=== PATIENT | female | born 1930 | race Caucasian/White ===

== ENCOUNTER → 2017-07-23 | Outpatient (CLI) | payer OTHER ==
[2017-07-23 17:03] LABS: ANION GAP 17.5 mmol/L (8-16); CALCIUM 9.4 mg/dL (8.4-10.2); CREATININE, SERUM 2.33 mg/dL (0.57-1.11); POTASSIUM 4.5 mmol/L (3.5-5.1)
[2017-07-23 17:04] LABS: BASOPHILS % 0.2 % (0.0-1.0); EOSINOPHILS # (AUTO) 0.1 (0.0-0.4); EOSINOPHILS % 0.4 % (0.0-6.0); HEMATOCRIT 40.1 % (34.2-44.1); HEMOGLOBIN 12.9 g/dL (12.0-16.0); LYMPHOCYTES # (AUTO) 0.6 (1.0-3.2); LYMPHOCYTES % 4.9 % (18.0-39.1); MEAN CORPUSCULAR HEMOGLOBIN 29.5 pg (28-32); MEAN CORPUSCULAR HGB CONC 32.2 g/dL (31-35); MEAN CORPUSCULAR VOLUME 91.8 fL (81-99); MONOCYTES # (AUTO) 0.8 (0.2-0.8); MONOCYTES % 6.2 % (4.4-11.3); NEUTROPHILS # (AUTO) 10.5 (2.1-6.9); NEUTROPHILS % 87.5 % (38.7-80.0); PLATELET COUNT 178 x10e3/uL (140-360); RED BLOOD COUNT 4.37 x10e6/uL (3.6-5.1); RED CELL DISTRIBUTION WIDTH 16.3 % (11.7-14.4)
== END ==
LOC: NPA 14:56
DX: Z02.89 Encounter for other administrative examinations (principal)
CPT/HCPCS: 36415; 80048; 85025

== ENCOUNTER → 2017-09-20 | Outpatient (CLI) | payer MEDICARE, OTHER ==
[~2017-09-20] MED LIST: AMIODARONE HCL200 MG PO; ASPIR 8181 MG PO; ATORVASTATIN CA20 MG PO; BUMETANIDE1 MG PO; CALCIUM PO; ELIQUIS PO; FARXIGA PO; GLIMEPIRIDE2 MG PO; PRESERVISION A1 EACH PO; PROAIR HFA INH8.5 GM INH; PROPRANOLOL HCL40 MG PO; SODIUM BICARBO650 MG PO; TOUJEO SOLOSTAR SC; VITAMIN D1000 UNI1 PO
== END ==
LOC: RAD 14:40
PROVIDERS: ATTEND Family Medicine
DX: R60.0 Localized edema (principal)
CPT/HCPCS: 93971

== ENCOUNTER 2017-09-22 19:48 | Inpatient (IN) | payer MEDICARE ==
[~2017-09-22] VITALS: Ht 157.5 cm; Wt 85.4 kg
[2017-09-22] MEDS ORDERED: PIPER-TAZ 3.375 GM 50 ML IV STA (20:46)
[2017-09-22] MEDS ORDERED: VANCOMYCIN 1GM/NS 250 ML 250 ML IV STA (20:46)
[2017-09-22] MEDS ORDERED: BUMETANIDE1 MG PO (21:32)
[2017-09-22] MEDS ORDERED: ASPIR 8181 MG PO (21:32)
[2017-09-22] MEDS ORDERED: FARXIGA PO (21:33)
[2017-09-22] MEDS ORDERED: GLIMEPIRIDE2 MG PO (21:35)
[2017-09-22] MEDS ORDERED: TOUJEO SOLOSTAR SC (21:38)
[2017-09-22] MEDS ORDERED: CALCIUM PO (21:39)
[2017-09-22] MEDS ORDERED: ELIQUIS PO (21:40)
[2017-09-22] MEDS ORDERED: PROPRANOLOL HCL40 MG PO (21:41)
[2017-09-22] MEDS ORDERED: PRESERVISION A1 EACH PO (21:41)
[2017-09-22] MEDS ORDERED: SODIUM BICARBO650 MG PO (21:41)
[2017-09-22 21:42] LABS: BASOPHILS # (AUTO) 0.1 (0.0-0.1); BASOPHILS % 0.4 % (0.0-1.0); EOSINOPHILS # (AUTO) 0.4 (0.0-0.4); EOSINOPHILS % 2.4 % (0.0-6.0); HEMATOCRIT 38.3 % (34.2-44.1); LYMPHOCYTES # (AUTO) 1.3 (1.0-3.2); LYMPHOCYTES % 9.2 % (18.0-39.1); MEAN CORPUSCULAR HGB CONC 31.3 g/dL (31-35); MEAN CORPUSCULAR VOLUME 89.5 fL (81-99); MONOCYTES % 7.1 % (4.4-11.3); NEUTROPHILS # (AUTO) 11.5 (2.1-6.9); NEUTROPHILS % 80.3 % (38.7-80.0); PLATELET COUNT 308 x10e3/uL (140-360); RED BLOOD COUNT 4.28 x10e6/uL (3.6-5.1); RED CELL DISTRIBUTION WIDTH 17.2 % (11.7-14.4)
[2017-09-22] MEDS ORDERED: AMIODARONE HCL200 MG PO (21:42)
[2017-09-22] MEDS ORDERED: VITAMIN D1000 UNI1 PO (21:42)
[2017-09-22] MEDS ORDERED: ATORVASTATIN CA20 MG PO (21:43)
[2017-09-22] MEDS ORDERED: PROAIR HFA INH8.5 GM INH (21:45)
[2017-09-22 21:51] LABS: INR 1.35; PARTIAL THROMBOPLASTIN TIME 30.8 seconds (23.8-35.5); PROTHROMBIN TIME 15.7 seconds (11.9-14.5)
--- NOTE | 2017-09-22 21:58 | Diagnostic Imaging Report ---
EXAMINATION: CHEST 2 VIEWS INDICATION: Shortness of breath COMPARISON: 11/03/2008 FINDINGS: TUBES and LINES: None. LUNGS: Lungs are not well inflated. There is evidence of interlobular septi thickening. There is mild prominence of the central pulmonary vasculature, consistent with pulmonary venous congestion. PLEURA: No pleural effusion or pneumothorax. HEART AND MEDIASTINUM: Cardiac size is mildly enlarged. BONES AND SOFT TISSUES: No acute osseous lesion. Soft tissues are unremarkable. UPPER ABDOMEN: No free air under the diaphragm. IMPRESSION: Interval development of mild pulmonary edema. Signed by: Dr. Enio Muñoz M.D. on 09/22/2017 9:54 PM
[2017-09-22 22:02] LABS: ALBUMIN 2.9 g/dL (3.5-5.0); ALBUMIN/GLOBULIN RATIO 0.8 (0.8-2.0); ANION GAP 15.8 mmol/L (8-16); CALCIUM 10.1 mg/dL (8.4-10.2); CREATININE, SERUM 1.97 mg/dL (0.57-1.11); POTASSIUM 3.8 mmol/L (3.5-5.1)
[2017-09-22] MEDS ORDERED: SODIUM CHLORIDE FLUSH 10 ML SYR INJ PRN (22:45)
[2017-09-22] MEDS ORDERED: FUROSEMIDE INJ 10 MG/ML 4 ML VIAL IV ONE (22:45)
[2017-09-22] MEDS ORDERED: DEXTROSE 50% SYRINGE 50 ML IV PRN (22:45)
[2017-09-22] MEDS ORDERED: VANCOMYCIN 500MG/NS 0.9% 100ML 100 ML IV SCH (22:45)
[2017-09-22] MEDS: ALBUTEROL/IPRATROPIUM 3 ML NEB NEB PRN (22:50)
--- OUTSIDE RECORDS SUMMARY | 2017-09-22 23:02 | XMS REPORT ---
Author Author [facility] Address Unknown Phone Unavailable Care Team Providers Care Cartographic Engineer Name Role Phone TERESA BO Unavailable Unavailable Problems This patient has no known problems. Allergies, Adverse Reactions, Alerts This patient has no known allergies or adverse reactions. Medications This patient has no known medications. Results Test Description Test Time Test Comments Text Results Atomic Results Result Comments CHEST 2 VIEWS [place] [id number] [place] [address] Patient Name: SANTOSH SANTIAGO MR #: [id number] : 1930 Age/Sex: 86/F Req #: [id number] Adm Physician: Ordered by: TERESA BO MD Report #: [id number] Location: ER Room/Bed: Procedure: [id number] DX/CHEST 2 VIEWS Exam Date: 09/22/17 Exam Time : 2104 REPORT STATUS: Signed EXAMINATION: CHEST 2 VIEWS INDICATION: Shortness of breath COMPARISON: 11/03/2008 FINDINGS: TUBES and LINES: None. LUNGS: Lungs are not well inflated. There is evidence of interlobular septi thickening. There is mild prominence of the central pulmonary vasculature, consistent with pulmonary venous congestion. PLEURA: No pleural effusion or pneumothorax. HEART AND MEDIASTINUM: Cardiac size is mildly enlarged. BONES AND SOFT TISSUES: No acute osseous lesion. Soft tissues are unremarkable. UPPER ABDOMEN: No free air under the diaphragm. IMPRESSION: Interval development of mild pulmonary edema. Signed by: Dr. Enio Muñoz M.D. on 09/22/2017 9:54 PM Dictated By: ENIO QUINTEROS MD 53 Transcribed By: NEGIN on 09/22/172153 COPY TO: TERESA BO MD
[2017-09-22 23:45] VITALS: BP 137/93
[2017-09-23] VITALS (8 sets, daily range): BP systolic 104–137; BP diastolic 56–93
[2017-09-23] MEDS: APIXAB 2.5 MG TABLET PO SCH ×3 (00:04→15:54)
[2017-09-23 00:57] LABS: CREATINE KINASE MB 1.1 ng/mL (0-5.0)
[2017-09-23] MEDS ORDERED: SODIUM CHLORIDE 0.9% 250ML 250 ML ONE (05:14)
[2017-09-23] MEDS: PIPERACILLIN/TAZO 2.25 GM 50 ML IV SCH ×3 (05:25→22:00)
[2017-09-23 07:20] LABS: BASOPHILS % 0.1 % (0.0-1.0); EOSINOPHILS # (AUTO) 0.1 (0.0-0.4); EOSINOPHILS % 0.5 % (0.0-6.0); HEMATOCRIT 31.2 % (34.2-44.1); HEMOGLOBIN 10.1 g/dL (12.0-16.0); LYMPHOCYTES # (AUTO) 1.3 (1.0-3.2); LYMPHOCYTES % 7.4 % (18.0-39.1); MEAN CORPUSCULAR HEMOGLOBIN 28.9 pg (28-32); MEAN CORPUSCULAR HGB CONC 32.4 g/dL (31-35); MEAN CORPUSCULAR VOLUME 89.4 fL (81-99); MONOCYTES # (AUTO) 0.9 (0.2-0.8); MONOCYTES % 5.2 % (4.4-11.3); NEUTROPHILS # (AUTO) 14.9 (2.1-6.9); NEUTROPHILS % 86.3 % (38.7-80.0); PLATELET COUNT 256 x10e3/uL (140-360); RED BLOOD COUNT 3.49 x10e6/uL (3.6-5.1); RED CELL DISTRIBUTION WIDTH 16.7 % (11.7-14.4)
[2017-09-23] MEDS: INSULIN REGULAR, HUMAN 100 UNIT/1 ML 3ML VIAL SQ SCH ×4 (07:30→21:00)
[2017-09-23 07:44] LABS: ALBUMIN 2.4 g/dL (3.5-5.0); ALBUMIN/GLOBULIN RATIO 0.8 (0.8-2.0); ANION GAP 13.1 mmol/L (8-16); CREATININE, SERUM 1.76 mg/dL (0.57-1.11); POTASSIUM 3.1 mmol/L (3.5-5.1)
--- NOTE | 2017-09-23 07:52 | History and Physical ---
This 86-year-old female comes in with right lower extremity swelling and redness. HISTORY OF PRESENT ILLNESS: Ms. Mcclure, with a history of hypertension, history of CHF, and history of diabetes mellitus, was in her usual state of health until 3 days prior to admission. The patient came into the office with right lower extremity swelling without any redness. DVT scan was done, which was negative. The patient had a recent fall, sustaining a scalp laceration, and was taken off her Eliquis for the same. The patient was restarted recently and currently complains of right lower extremity redness and erythema. PAST MEDICAL HISTORY 1. History of atrial fibrillation. 2. History of hypertension. 3. History of COPD. 4. History of diabetes mellitus. 5. Hyperlipidemia. 6. Macular degeneration. 7. Gastroesophageal reflux. MEDICATIONS: She takes at home: 1. Albuterol. 2. Amiodarone 200 mg. 3. Aspirin 81 mg. 4. Atorvastatin 20. 5. Bumex 1 mg daily. 6. Glimepiride 10 mg daily. 7. Propranolol 40 mg twice a day. 8. Sodium bicarbonate 650 mg b.i.d. 9. Calcium. 10. Eliquis 2.5 mg twice a day. 11. Farxiga 5 mg daily. 12. Toujeo 12 units at nighttime. SURGICAL HISTORY 1. Hiatal hernia surgery. 2. Appendectomy. 3. Tonsillectomy. REVIEW OF SYSTEMS: Negative for chest pain. Possibly some shortness of breath. No nausea, vomiting, diarrhea. No constipation. No rectal bleeding or hematochezia. No hematemesis. No diplopia. No blurry vision. PHYSICAL EXAMINATION GENERAL: Alert and oriented times 3, in no acute distress. Left lower extremity is raised. HEENT: Normocephalic and atraumatic. The pupils are reacting to light and accommodation. CV: S1 and S2 irregularly irregular. ABDOMEN: Nontender and nondistended. EXTREMITIES: No clubbing. No cyanosis. Positive for edema on the right lower extremity. Positive for erythema spreading into the braga level, positive from the ankle to the knee level. Positive for slight tenderness. LABORATORY EVALUATION: Initial white count 14,000 with a left shift. Chemistries: Sodium 141, BUN 39, creatinine 1.97, potassium 3.8. BNP was 2519. IMAGING: Chest x-ray showed interval development of mild pulmonary edema. MICROBIOLOGY: Pending. ASSESSMENT AND PLAN: Right lower extremity cellulitis. The patient has been started on Zosyn q.8 h. She was restarted back on her apixaban. Furosemide 40 mg IV once has been given. Will restart that for about 4 doses. Vancomycin also was given for 8. The patient will continue back on her home medications. Further recommendations per clinical course. Will continue to monitor the patient in the hospital and also check for cultures. The patient also has history of chronic kidney disease, which we will monitor, especially with administration of medications. We will continue monitoring her electrolytes on a daily basis. Job#: [id number]
[2017-09-23] MEDS: GLIMEPIRIDE 2 MG TAB PO SCH (08:00)
[2017-09-23 08:26] LABS: CREATINE KINASE MB 0.7 ng/mL (0-5.0)
[2017-09-23] MEDS: FARXIGA 5 MG PO SCH (09:00)
[2017-09-23] MEDS ORDERED: COPPER PO SCH (09:00)
[2017-09-23] MEDS: INSULIN GLARGINE SC SCH (09:00)
[2017-09-23] MEDS ORDERED: VIT C PO SCH (09:00)
[2017-09-23] MEDS ORDERED: ZINC PO SCH (09:00)
[2017-09-23] MEDS ORDERED: NON-FORMULARY MEDICATION ([Eliquis] 2.5 MG) PO SCH (09:00)
[2017-09-23] MEDS ORDERED: [UNRECOGNIZED DRUG - OTHER] PO SCH (09:00)
[2017-09-23] MEDS ORDERED: FARXIGA 5 MG PO SCH (09:00)
[2017-09-23] MEDS ORDERED: VIT A PO SCH (09:00)
[2017-09-23] MEDS ORDERED: VIT E PO SCH (09:00)
[2017-09-23] MEDS ORDERED: INSULIN GLARGINE SC SCH (09:00)
[2017-09-23] MEDS ORDERED: NON-FORMULARY MEDICATION ([Calcium] 600 MG) PO SCH (09:00)
[2017-09-23] MEDS ORDERED: POTASSIUM CHLORIDE 20 MEQ TAB CR PO NR (09:15)
[2017-09-23] MEDS: ASPIRIN 81 MG CHEW TAB PO SCH (10:00)
[2017-09-23] MEDS: MULTIVITAMINS/MINERALS TAB PO SCH (10:00)
[2017-09-23] MEDS: PROPRANOLOL HCL 40 MG TAB PO SCH ×2 (10:00→15:54)
[2017-09-23] MEDS: BUMETANIDE 1 MG TAB PO SCH (10:00)
[2017-09-23] MEDS: CHOLECALCIFEROL 1,000 UNIT TAB PO SCH ×2 (10:00→15:55)
[2017-09-23] MEDS: FUROSEMIDE INJ 10 MG/ML 4 ML VIAL IV SCH ×2 (10:00→15:54)
[2017-09-23] MEDS: VANCOMYCIN 500MG/NS 0.9% 100ML 100 ML IV SCH ×2 (10:00→21:38)
[2017-09-23] MEDS: CALCIUM CARBONATE 500 MG CHEWABLE TABS PO SCH (10:00)
[2017-09-23] MEDS: SODIUM BICARBONATE 650 MG TAB PO SCH ×2 (10:37→15:55)
[2017-09-23 15:11] LABS: CREATINE KINASE MB 0.6 ng/mL (0-5.0)
[2017-09-23] MEDS: ALBUTEROL/IPRATROPIUM 3 ML NEB NEB PRN (20:15)
[2017-09-23] MEDS: AMIODARONE HCL 200 MG TAB PO SCH (21:37)
[2017-09-23] MEDS: ATORVASTATIN 40 MG TAB PO SCH (21:37)
[2017-09-24] VITALS (8 sets, daily range): BP systolic 99–136; BP diastolic 54–74
[2017-09-24] MEDS: PIPERACILLIN/TAZO 2.25 GM 50 ML IV SCH ×3 (05:33→22:00)
[2017-09-24] MEDS: INSULIN REGULAR, HUMAN 100 UNIT/1 ML 3ML VIAL SQ SCH ×4 (07:30→21:00)
[2017-09-24] MEDS: FARXIGA 5 MG PO SCH (08:25)
[2017-09-24] MEDS: INSULIN GLARGINE SC SCH (08:26)
[2017-09-24] MEDS: VANCOMYCIN 500MG/NS 0.9% 100ML 100 ML IV SCH ×2 (09:00→21:00)
[2017-09-24] MEDS: ASPIRIN 81 MG CHEW TAB PO SCH (09:00)
[2017-09-24] MEDS: FUROSEMIDE INJ 10 MG/ML 4 ML VIAL IV SCH ×2 (09:00→16:53)
[2017-09-24] MEDS: APIXAB 2.5 MG TABLET PO SCH ×2 (10:35→16:53)
[2017-09-24] MEDS: CHOLECALCIFEROL 1,000 UNIT TAB PO SCH ×2 (10:35→16:54)
[2017-09-24] MEDS: PROPRANOLOL HCL 40 MG TAB PO SCH ×2 (10:35→16:54)
[2017-09-24] MEDS: BUMETANIDE 1 MG TAB PO SCH (10:35)
[2017-09-24] MEDS: SODIUM BICARBONATE 650 MG TAB PO SCH ×2 (10:35→16:54)
[2017-09-24] MEDS: MULTIVITAMINS/MINERALS TAB PO SCH (10:35)
[2017-09-24] MEDS: CALCIUM CARBONATE 500 MG CHEWABLE TABS PO SCH (10:35)
[2017-09-24] MEDS: GLIMEPIRIDE 2 MG TAB PO SCH (12:39)
[2017-09-24] MEDS ORDERED: POTASSIUM CHLORIDE 20 MEQ TAB CR PO ONE (17:45)
[2017-09-24] MEDS: AMIODARONE HCL 200 MG TAB PO SCH (21:00)
[2017-09-24] MEDS: ATORVASTATIN 40 MG TAB PO SCH (21:33)
[2017-09-25] VITALS (9 sets, daily range): BP systolic 113–128; BP diastolic 59–75
[2017-09-25] MEDS: PIPERACILLIN/TAZO 2.25 GM 50 ML IV SCH ×3 (05:25→21:23)
[2017-09-25 06:55] LABS: BASOPHILS % 0.3 % (0.0-1.0); EOSINOPHILS # (AUTO) 0.6 (0.0-0.4); EOSINOPHILS % 5.3 % (0.0-6.0); HEMATOCRIT 32.4 % (34.2-44.1); HEMOGLOBIN 10.2 g/dL (12.0-16.0); LYMPHOCYTES # (AUTO) 1.3 (1.0-3.2); LYMPHOCYTES % 11.8 % (18.0-39.1); MEAN CORPUSCULAR HEMOGLOBIN 28.3 pg (28-32); MEAN CORPUSCULAR HGB CONC 31.5 g/dL (31-35); MEAN CORPUSCULAR VOLUME 89.8 fL (81-99); MONOCYTES # (AUTO) 1.2 (0.2-0.8); MONOCYTES % 10.9 % (4.4-11.3); NEUTROPHILS # (AUTO) 7.7 (2.1-6.9); NEUTROPHILS % 71.1 % (38.7-80.0); PLATELET COUNT 243 x10e3/uL (140-360); RED BLOOD COUNT 3.61 x10e6/uL (3.6-5.1); RED CELL DISTRIBUTION WIDTH 17.2 % (11.7-14.4)
[2017-09-25 07:20] LABS: ANION GAP 13.1 mmol/L (8-16); CALCIUM 8.9 mg/dL (8.4-10.2); CREATININE, SERUM 2.17 mg/dL (0.57-1.11); POTASSIUM 4.1 mmol/L (3.5-5.1)
[2017-09-25] MEDS: GLIMEPIRIDE 2 MG TAB PO SCH (08:46)
[2017-09-25] MEDS: FUROSEMIDE INJ 10 MG/ML 4 ML VIAL IV SCH ×2 (08:47→16:12)
[2017-09-25] MEDS: APIXAB 2.5 MG TABLET PO SCH ×2 (08:47→16:12)
[2017-09-25] MEDS: CALCIUM CARBONATE 500 MG CHEWABLE TABS PO SCH (08:47)
[2017-09-25] MEDS: PROPRANOLOL HCL 40 MG TAB PO SCH ×2 (08:47→16:12)
[2017-09-25] MEDS: ASPIRIN 81 MG CHEW TAB PO SCH (08:47)
[2017-09-25] MEDS: CHOLECALCIFEROL 1,000 UNIT TAB PO SCH ×2 (08:47→16:12)
[2017-09-25] MEDS: BUMETANIDE 1 MG TAB PO SCH (08:47)
[2017-09-25] MEDS: MULTIVITAMINS/MINERALS TAB PO SCH (08:47)
[2017-09-25] MEDS: INSULIN REGULAR, HUMAN 100 UNIT/1 ML 3ML VIAL SQ SCH ×4 (08:47→21:00)
[2017-09-25] MEDS: SODIUM BICARBONATE 650 MG TAB PO SCH ×2 (08:47→16:12)
[2017-09-25] MEDS: FARXIGA 5 MG PO SCH (08:49)
[2017-09-25] MEDS: INSULIN GLARGINE SC SCH (08:49)
[2017-09-25] MEDS: VANCOMYCIN 500MG/NS 0.9% 100ML 100 ML IV SCH (09:00)
[2017-09-25] MEDS: ATORVASTATIN 40 MG TAB PO SCH (21:00)
[2017-09-25] MEDS: AMIODARONE HCL 200 MG TAB PO SCH (21:00)
[2017-09-26] VITALS: BP 120/67
[2017-09-26 03:45] VITALS: BP 126/66
[2017-09-26] MEDS: PIPERACILLIN/TAZO 2.25 GM 50 ML IV SCH ×2 (05:24→14:23)
[2017-09-26 07:10] VITALS: BP 146/78
[2017-09-26] MEDS: INSULIN REGULAR, HUMAN 100 UNIT/1 ML 3ML VIAL SQ SCH ×2 (07:30→12:48)
[2017-09-26 07:36] VITALS: BP 146/78
[2017-09-26 07:58] LABS: ANION GAP 16.1 mmol/L (8-16); CALCIUM 9.7 mg/dL (8.4-10.2); CREATININE, SERUM 1.99 mg/dL (0.57-1.11); POTASSIUM 4.1 mmol/L (3.5-5.1)
[2017-09-26] MEDS ORDERED: GLIMEPIRIDE 2 MG TAB PO SCH (08:00)
[2017-09-26] MEDS: INSULIN GLARGINE SC SCH (08:12)
[2017-09-26] MEDS: FARXIGA 5 MG PO SCH (08:12)
[2017-09-26] MEDS: BUMETANIDE 1 MG TAB PO SCH (09:02)
[2017-09-26] MEDS: ASPIRIN 81 MG CHEW TAB PO SCH (09:02)
[2017-09-26] MEDS: APIXAB 2.5 MG TABLET PO SCH (09:02)
[2017-09-26] MEDS: CALCIUM CARBONATE 500 MG CHEWABLE TABS PO SCH (09:03)
[2017-09-26] MEDS: SODIUM BICARBONATE 650 MG TAB PO SCH (09:03)
[2017-09-26] MEDS: MULTIVITAMINS/MINERALS TAB PO SCH (09:03)
[2017-09-26] MEDS: PROPRANOLOL HCL 40 MG TAB PO SCH (09:03)
[2017-09-26] MEDS: CHOLECALCIFEROL 1,000 UNIT TAB PO SCH (09:03)
[2017-09-26] MEDS: VANCOMYCIN 500MG/NS 0.9% 100ML 100 ML IV SCH (09:10)
[2017-09-26 11:31] VITALS: BP 123/72
[2017-09-26 15:52] VITALS: BP 123/74
[2017-09-26] MEDS ORDERED: FUROSEMIDE 40 MG TAB PO SCH (18:00)
== END 2017-09-26 17:51 | DRG 291 ==
LOC: ER 19:48 → MED/SURG3 22:57
PROVIDERS: ADMIT Family Medicine; ATTEND Family Medicine
DX: I13.0 Hypertensive heart and chronic kidney disease with heart failure and stage 1 through stage 4 chronic kidney disease, or unspecified chronic kidney disease (principal); I50.33 Acute on chronic diastolic (congestive) heart failure; E11.22 Type 2 diabetes mellitus with diabetic chronic kidney disease; L03.115 Cellulitis of right lower limb; I48.91 Unspecified atrial fibrillation; J44.9 Chronic obstructive pulmonary disease, unspecified; D64.9 Anemia, unspecified; R09.02 Hypoxemia; N18.9 Chronic kidney disease, unspecified; Z79.4 Long term (current) use of insulin; Z79.01 Long term (current) use of anticoagulants
CPT/HCPCS: 36415; 51700; 71046; 80048; 80053; 80202; 82550; 82553; 82948; 83605; 83880; 84484; 85025; 85610; 85730; 87040; 94640; 99284; J1940; J2543; J3370; J7050

== ENCOUNTER → 2018-01-09 | Outpatient (CLI) | payer MEDICARE | LOC: CARD 12:24 | PROVIDERS: ATTEND Family Medicine | DX: I73.9 Peripheral vascular disease, unspecified (principal) | CPT/HCPCS: 93925 ==

== ENCOUNTER 2019-01-13 12:36 | Inpatient (IN) | payer MEDICARE ==
[~2019-01-13] VITALS: Ht 157.5 cm; Wt 91.7 kg
--- OUTSIDE RECORDS SUMMARY | 2019-01-13 12:39 | XMS REPORT ---
Author Author Olivier Fletcher [facility] eClinicalWorks Address Unknown Phone Unavailable Care Team Providers Care Roughener Name Role Phone Olivier Fletcher Unavailable Allergies, Adverse Reactions, Alerts Substance Reaction Event Type Codeine Sulfate Info Not Available Drug Allergy Problems Problem Type Condition Code Onset Dates Condition Status Assessment Finger pain, right M79.644 Active Assessment Vitamin D deficiency E55.9 Active Problem Neutrophilic leukocytosis D72.9 Active Problem Vitamin D deficiency E55.9 Active Problem Finger pain, right M79.644 Active Assessment Age related osteoporosis M81.0 Active Problem Long-term use of high-risk medication Z79.899 Active Problem Age related osteoporosis M81.0 Active Medications Medication Code System Code Instructions Start Date End Date Status Dosage Tylenol Arthritis Pain [facility] 15759358617 650 MG Orally twice a day Active 2 tablets Eliquis [facility] 13383813938 5 MG Orally once a day Active 1 tablet ProAir HFA [facility] 30152326592 108 (90 Base) MCG/ACT Inhalation every 4 hrs Active 2 puffs as needed Sodium Bicarbonate [facility] 38024292426 650 MG Orally twice a day Active 3 tablets Bumetanide ND 76787050546 0.5 MG Orally Active as directed Atenolol [facility] 02169938435 50 MG Orally Once a day Active 1 tablet Glimepiride [facility] 34867560148 2 MG Orally Once a day Active 1/2 tablet Furosemide [facility] 22854160305 20 MG Orally Once a day Active 1 tablet Amiodarone HCl [facility] 68118596965 200 MG Orally Once a day Active 1 tablet Vitamin D [facility] 29401916620 2000 iu Orally twice a day Active 1 capsule Anoro Ellipta [facility] 82980220133 62.5-25 MCG/INH Inhalation Once a day Active 1 puff Calcium [facility] 29196468052 600 MG Orally Twice a day Active 1 tablet with meals Felodipine ER ND 71069162851 5 MG Orally Once a day Active 1 tablet Prolia [facility] 09585498227 60 MG/ML Subcutaneous [id number] Active 60MG SQ Farxiga [facility] 18616033876 5 MG Orally Once a day Active 1 tablet Atorvastatin Calcium [facility] 00381344539 40 MG Orally Once a day Active 1 tablet PreserVision AREDS [facility] 24755390682 Orally Active as directed Januvia [facility] 47569992932 100 MG Orally Once a day Active 1 tablet Aspirin [facility] 68943561935 81 MG Orally Once a day Active 1 tablet Vital Signs Date/Time: Apr 08, 2018 BMI 33.14 Index Weight 175.4 lbs Height 61 in Temperature 97.8 F Cardiac Monitoring Heart Rate 76 /min Blood Pressure Diastolic 70 mm Hg Blood Pressure Systolic 110 mm Hg Results No Known Results Summary Purpose eClinicalWorks Submission
--- OUTSIDE RECORDS SUMMARY | 2019-01-13 12:39 | XMS REPORT ---
Author Author Olivier Fletcher [facility] eClinicalWorks Address Unknown Phone Unavailable Care Team Providers Care Extractor Machine Operator Name Role Phone Olivier Fletcher Unavailable Allergies, Adverse Reactions, Alerts Substance Reaction Event Type Codeine Sulfate Info Not Available Drug Allergy Problems Problem Type Condition Code Onset Dates Condition Status Assessment Long-term use of high-risk medication Z79.899 Active Assessment Age related osteoporosis M81.0 Active Assessment Pain in right knee M25.561 Active Assessment Primary osteoarthritis involving multiple joints M15.0 Active Assessment Finger pain, right M79.644 Active Assessment Vitamin D deficiency E55.9 Active Problem Primary osteoarthritis involving multiple joints M15.0 Active Problem Finger pain, right M79.644 Active Problem Pain in right knee M25.561 Active Problem Age related osteoporosis M81.0 Active Problem Vitamin D deficiency E55.9 Active Problem Neutrophilic leukocytosis D72.9 Active Problem Long-term use of high-risk medication Z79.899 Active Medications Medication Code System Code Instructions Start Date End Date Status Dosage Atenolol [facility] 41106774234 50 MG Orally Once a day Active 1 tablet Tylenol Arthritis Pain [facility] 33211529404 650 MG Orally twice a day Active [address] [facility] 03034495970 60 MG/ML Subcutaneous [id number] Active 60MG SQ Felodipine ER ND 49820205708 5 MG Orally Once a day Active [address] [facility] 35642528339 600 MG Orally Twice a day Active 1 tablet with meals PreserVision AREDS [facility] 79085512841 Orally Active as directed Bumetanide ND 51169562093 0.5 MG Orally Active as directed Atorvastatin Calcium [facility] 20822178298 40 MG Orally Once a day Active 1 tablet Sodium Bicarbonate ND 80086822418 650 MG Orally twice a day Active 2 tablets Eliquis ND 86571738731 5 MG Orally once a day Active 1 tablet ProAir HFA [facility] 45512076862 108 (90 Base) MCG/ACT Inhalation every 4 hrs Active 2 puffs as needed Furosemide [facility] 16946717257 20 MG Orally Once a day Active 1 tablet Anoro Ellipta [facility] 73918385063 62.5-25 MCG/INH Inhalation Once a day Active [address] [facility] 90272770107 81 MG Orally Once a day Active 1 tablet Amiodarone HCl [facility] 30149090240 200 MG Orally Once a day Active 1 tablet Vitamin D [facility] 04619909449 2000 iu Orally twice a day Active 1 capsule Vital Signs Date/Time: October 14, 2018 BMI 34.76 Index Weight 184 lbs Height 61 in Temperature 97.4 F Cardiac Monitoring Heart Rate 76 /min Blood Pressure Diastolic 60 mm Hg Blood Pressure Systolic 116 mm Hg Results No Known Results Summary Purpose eClinicalWorks Submission
--- OUTSIDE RECORDS SUMMARY | 2019-01-13 12:39 | XMS REPORT ---
Author Author Olivier Fletcher Organization [employer] Address Unknown Phone Unavailable Care Team Providers Care Trademark Paralegal Name Role Phone Olivier Fletcher CP Unavailable Allergies No Known Allergies Problems Problem Type Condition Code Onset Dates Condition Status Problem Vitamin D deficiency E55.9 Active Problem Long-term use of high-risk medication Z79.899 Active Problem Neutrophilic leukocytosis D72.9 Active Problem Age related osteoporosis M81.0 Active Medications Medication Code System Code Instructions Start Date End Date Status Dosage Prolia [facility] 75462409073 60 MG/ML Subcutaneous q 6 months Active as directed Results No Known Results Summary Purpose eClinicalWorks Submission
--- OUTSIDE RECORDS SUMMARY | 2019-01-13 12:39 | XMS REPORT ---
Author Author Olivier Fletcher Organization [employer]Clinical[employer] Address Unknown Phone Unavailable Care Team Providers Care Clean Room Assembler Name Role Phone Olivier Fletcher CP Unavailable Allergies No Known Allergies Problems Problem Type Condition Code Onset Dates Condition Status Problem Vitamin D deficiency E55.9 Active Problem Long-term use of high-risk medication Z79.899 Active Problem Neutrophilic leukocytosis D72.9 Active Problem Age related osteoporosis M81.0 Active Medications No Known Medications Results No Known Results Summary Purpose eClinicalWorks Submission
--- OUTSIDE RECORDS SUMMARY | 2019-01-13 12:39 | XMS REPORT ---
Author Author Olivier Fletcher [facility] eClinicalWorks Address Unknown Phone Unavailable Care Team Providers Care Regional Marketing Manager Name Role Phone Olivier Fletcher CP Unavailable Allergies, Adverse Reactions, Alerts Substance Reaction Event Type Codeine Sulfate Info Not Available Drug Allergy Problems Problem Type Condition Code Onset Dates Condition Status Problem Vitamin D deficiency E55.9 Active Problem Long-term use of high-risk medication Z79.899 Active Problem Neutrophilic leukocytosis D72.9 Active Assessment Vitamin D deficiency E55.9 Active Assessment Long-term use of high-risk medication Z79.899 Active Problem Age related osteoporosis M81.0 Active Assessment Age related osteoporosis M81.0 Active Medications Medication Code System Code Instructions Start Date End Date Status Dosage ProAir HFA [facility] 74434703536 108 (90 Base) MCG/ACT Inhalation every 4 hrs Active 2 puffs as needed Sodium Bicarbonate [facility] 81495139317 650 MG Orally twice a day Active 3 tablets Bumetanide ND 14564370487 0.5 MG Orally Active as directed Atorvastatin Calcium [facility] 65769689048 40 MG Orally Once a day Active 1 tablet Prolia [facility] 66956693517 60 MG/ML Subcutaneous q 6 months Active as directed Glimepiride ND 87521581727 2 MG Orally Once a day Active 1/2 tablet Amiodarone HCl [facility] 74962501054 200 MG Orally Once a day Active 1 tablet Aspirin [facility] 00806669691 81 MG Orally Once a day Active 1 tablet Anoro Ellipta [facility] 67213734110 62.5-25 MCG/INH Inhalation Once a day Active 1 puff Farxiga [facility] 93985071173 5 MG Orally Once a day Active 1 tablet Vitamin D [facility] 79823419622 2000 iu Orally twice a day Active 1 capsule Eliquis [facility] 15140274663 5 MG Orally once a day Active 1 tablet PreserVision AREDS ND 11307897447 Orally Active as directed Calcium [facility] 21770600323 600 MG Orally Twice a day Active 1 tablet with meals Vital Signs Date/Time: September 16, 2017 BMI 36.84 Index Weight 195 lbs Height 61 in Temperature 98.8 F Cardiac Monitoring Heart Rate 88 /min Blood Pressure Diastolic 62 mm Hg Blood Pressure Systolic 118 mm Hg Results No Known Results Summary Purpose eClinicalWorks Submission
--- OUTSIDE RECORDS SUMMARY | 2019-01-13 12:39 | XMS REPORT ---
Author Author Olivier Fletcher Organization [employer]Clinical[employer] Address Unknown Phone Unavailable Care Team Providers Care Lead Loader Name Role Phone Olivier Fletcher CP Unavailable Allergies No Known Allergies Problems Problem Type Condition Code Onset Dates Condition Status Problem Primary osteoarthritis involving multiple joints M15.0 Active Problem Finger pain, right M79.644 Active Problem Pain in right knee M25.561 Active Problem Age related osteoporosis M81.0 Active Problem Vitamin D deficiency E55.9 Active Problem Neutrophilic leukocytosis D72.9 Active Problem Long-term use of high-risk medication Z79.899 Active Medications Medication Code System Code Instructions Start Date End Date Status Dosage OrthoVisc NDC 23126723233 30 MG/2ML Intra-articular every 6 months October 17, 2018 Active 2 ml in R knee OrthoVisc NDC 44819010319 30 MG/2ML Intra-articular Once a week for three weeks November 03, 2018 Active 2 ml in the R) knee Results No Known Results Summary Purpose eClinicalWorks Submission
--- OUTSIDE RECORDS SUMMARY | 2019-01-13 12:39 | XMS REPORT ---
Author Author Olivier Fletcher Organization [employer]ClinicalWorks Address Unknown Phone Unavailable Care Team Providers Care Staple Shear Operator Name Role Phone Olivier Fletcher CP Unavailable [...]
--- OUTSIDE RECORDS SUMMARY | 2019-01-13 12:39 | XMS REPORT ---
Author Author Barbara Leyva [facility] eClinicalWorks Address Unknown Phone Unavailable Care Team Providers Care Drum Stenciler Name Role Phone Barbara Leyva CP Unavailable Allergies, Adverse Reactions, Alerts Substance Reaction Event Type Codeine Sulfate Info Not Available Drug Allergy Problems Problem Type Condition Code Onset Dates Condition Status Assessment Primary osteoarthritis of right knee M17.11 Active Problem Vitamin D deficiency E55.9 Active Assessment Long-term use of high-risk medication Z79.899 Active Assessment Age related osteoporosis M81.0 Active Problem Pain in right knee M25.561 Active Problem Primary osteoarthritis involving multiple joints M15.0 Active Problem Primary osteoarthritis of right knee M17.11 Active Problem Age related osteoporosis M81.0 Active Problem Long-term use of high-risk medication Z79.899 Active Problem Finger pain, right M79.644 Active Problem Neutrophilic leukocytosis D72.9 Active Medications Medication Code System Code Instructions Start Date End Date Status Dosage PreserVision AREDS [facility] 69492896967 Orally Active as directed Calcium [facility] 28678424730 600 MG Orally Twice a day Active 1 tablet with meals Amiodarone HCl [facility] 48184153203 200 MG Orally Once a day Active [address] [facility] 04009620389 5 MG Orally Once a day Active 1 tablet Felodipine [place] ND 91653004538 5 MG Orally Once a day Active 1 tablet Vitamin D [facility] 20284857433 2000 iu Orally twice a day Active [address] [facility] 85806720657 5 MG Orally once a day Active [address] [facility] 69570597380 100 MG Orally Once a day Active [address] [facility] 99181358542 81 MG Orally Once a day Active [address] [facility] 48156774269 60 MG/ML Subcutaneous [id number] Active 60MG SQ Furosemide [facility] 35202415173 20 MG Orally Once a day Active 1 tablet Tylenol Arthritis Pain [facility] 38867078648 650 MG Orally twice a day Active [address] [facility] 94653375644 50 MG Orally Once a day Active [address]FA [facility] 82718470736 108 (90 Base) MCG/ACT Inhalation every 4 hrs Active 2 puffs as needed Anoro Ellipta [facility] 72419372633 62.5-25 MCG/INH Inhalation Once a day Active [address] [facility] 89139965481 2 MG Orally Once a day Active 1/[address] [facility] 42718372014 30 MG/2ML Intra-articular every 6 months October 17, 2018 Active 2 ml in R knee Atorvastatin Calcium [facility] 67848085044 40 MG Orally Once a day Active [address] [facility] 78395446710 0.5 MG Orally Active as directed Sodium Bicarbonate [facility] 44619255911 650 MG Orally twice a day Active 3 tablets Vital Signs Date/Time: December 09, 2018 BMI 35.95 Index Weight 190.3 lbs Height 61 in Temperature 97.8 F Cardiac Monitoring Heart Rate 72 /min Blood Pressure Diastolic 64 mm Hg Blood Pressure Systolic 118 mm Hg Results No Known Results Summary Purpose eClinicalWorks Submission
--- OUTSIDE RECORDS SUMMARY | 2019-01-13 12:39 | XMS REPORT ---
Author Author Olivier Fletcher Organization eClinicalWorks Address Unknown Phone Unavailable Care Team Providers Care Fountain Operator Name Role Phone Olivier Fletcher CP [...] use of high-risk medication Z79.899 Active Medications No Known Medications Results No Known Results Summary Purpose eClinicalWorks Submission
--- OUTSIDE RECORDS SUMMARY | 2019-01-13 12:39 | XMS REPORT ---
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 Active Assessment Chronic kidney disease, stage III (moderate) N18.3 Active Problem Benign hypertensive heart disease without congestive heart failure I11.9 Active Assessment 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 Active Problem Non morbid obesity due to excess calories E66.09 Active Assessment Hypercholesterolemia E78.01 Active Problem 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 Active Problem Chronic atrial fibrillation I48.2 Active Problem Varicose veins of bilateral lower extremities with other complications I83.893 Active Problem Nonrheumatic tricuspid (valve) insufficiency I36.1 Active Problem Non-rheumatic mitral regurgitation I34.0 Active Assessment Shortness of breath R06.02 Active Assessment Abnormal EKG R94.31 Active Problem Congestive heart failure with LV diastolic dysfunction, NYHA class 1 I50.30 Active Assessment Benign hypertensive heart disease without congestive heart failure I11.9 Active Problem Persistent atrial fibrillation I48.1 Active Problem Chronic kidney disease, stage III (moderate) N18.3 Active Problem Varicose veins of lower extremities with other complications I83.899 Active Problem 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 Problem Spondylosis with myelopathy, 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 Assessment Persistent atrial fibrillation I48.1 Active Assessment 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 Problem Shortness of breath R06.02 Active Problem Hypercholesterolemia E78.01 Active Problem Atherosclerosis of [place] coronary artery of [place] heart without angina pectoris I25.10 Active Problem Abnormal EKG R94.31 Active Medications Medication Code System Code Instructions Start Date End Date Status Dosage Anoro Ellipta [facility] 77353126970 62.5-25 MCG/INH Inhalation Once a day Active 1 puff Omeprazole [facility] 51617968891 20 MG Orally Once a day Active 1 capsule Sodium Bicarbonate [facility] 92838-31747 10 mg Orally BID Active 1 tablet Propranolol HCl [facility] 19612169142 20 MG Orally Twice a day Active 1 tablet Amiodarone HCl [facility] 60455704700 200 MG Orally Once a day Active 1 tablet Advair Diskus [facility] 45212726937 250-50 MCG/DOSE Inhalation Twice a day Active 1 puff Bumetanide [facility] 80096961433 0.5 MG Orally every day (qd) Active not defined Calcium [facility] 73651650490 600 MG Orally Once a day Active 1 tablet with meals Januvia [facility] 02040512617 100 MG Orally Once a day Active 1 tablet Farxiga [facility] 46291602895 5 MG Orally Once a day Active 1 tablet Aspirin 81 [facility] 98997244117 81 MG Orally Once a day Active 1 tablet Eliquis [facility] 99898557650 2.5 MG Orally twice a day (bid) Active as directed Atorvastatin Calcium [facility] 72337093658 40 mg Orally Once a day Active 1 tablet Glimepiride [facility] 56470498780 2 MG Orally Once a day Active 1 tablet with breakfast or the first main meal of the day Tylenol Arthritis Pain [facility] 61029516043 2/650 MG Orally BID Active as directed Toaydin Joyner [facility] [id number] 300 UNIT/ML Subcutaneous daily Active 8 units pm 4 units am Vitamin D [facility] 30456918324 2000 UNIT Orally Once a day Active as directed PreserVision AREDS 2 [facility] [id number] Orally BID Active as directed PreserVision AREDS [facility] 98662013935 - Orally Active not defined Vital Signs Date/Time: September 16, 2017 BMI 33.47 Index Weight 195 lbs Height 64 in Temperature 98.3 F Cardiac Monitoring Heart Rate 102 /min Blood Pressure Diastolic 80 mm Hg Blood Pressure Systolic 112 mm Hg Results No Known Results Summary Purpose [employer] Submission
--- OUTSIDE RECORDS SUMMARY | 2019-01-13 12:39 | XMS REPORT | Continuity of Care Document ---
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 Name Role Phone [facility] [employer] Information [place] Unavailable Unavailable Problems Problem Status Onset Date Classification Date Reported Comments Source CHF Active Problem 09/26/2017 [facility] Cellulitis of left lower extremity without foot Active Problem 09/26/2017 [facility] Pulmonary edema Active Problem 09/26/2017 [facility] Vitamin D deficiency Active Problem 12/11/2018 Carlos Enrique Fletcher Long-term use of high-risk medication Active Diagnosis 12/11/2018 Carlos Enrique Fletcher Neutrophilic leukocytosis Active Problem 12/11/2018 Carlos Enrique Fletcher Age related osteoporosis Active Diagnosis 12/11/2018 Carlos Enrique Fletcher Primary osteoarthritis involving multiple joints Active Problem 12/11/2018 Carlos Enrique Fletcher Finger pain, right Active Problem 12/11/2018 Carlos Enrique Fletcher Pain in right knee Active Problem 12/11/2018 Carlos Enrique Fletcher Non morbid obesity due to excess calories Active Diagnosis 11/14/2018 Hamlet Guzmán Spondylosis with myelopathy, lumbar region Active Diagnosis 11/14/2018 Hamlet Guzmán Varicose veins of lower extremities with other complications Active Diagnosis 11/14/2018 Hamlet Guzmán Chronic kidney disease, stage III Active Diagnosis 11/14/2018 Hamlet Guzmán Benign hypertensive heart disease without congestive heart failure Active Problem 11/14/2018 Hamlet Guzmán Type 2 diabetes mellitus with unspecified complications Active Diagnosis 11/14/2018 Hamlet Guzmán Hypercholesterolemia Active Diagnosis 11/14/2018 Hamlet Guzmán Chronic atrial fibrillation Active Problem 11/14/2018 Hamlet Guzmán Varicose veins of bilateral lower extremities with other complications Active Problem 11/14/2018 Hamlet Guzmán Nonrheumatic tricuspid insufficiency Active Problem 11/14/2018 Hamlet Guzmán Non-rheumatic mitral regurgitation Active Problem 11/14/2018 Hamlet Guzmán Shortness of breath Active Diagnosis 11/14/2018 Hamlet Guzmán Abnormal EKG Active Diagnosis 11/14/2018 Hamlet Guzmán Congestive heart failure with LV diastolic dysfunction, NYHA class 1 Active Problem 11/14/2018 Hamlet Guzmán Persistent atrial fibrillation Active Problem 11/14/2018 Hamlet Guzmán Atherosclerosis of [place] coronary artery of [place] heart with angina pectoris Active Problem 11/14/2018 Hamlet Guzmán Atherosclerosis of [place] coronary artery of [place] heart without angina pectoris Active Problem 11/14/2018 Hamlet Guzmán Primary osteoarthritis of right knee Active Diagnosis 12/11/2018 Carlos Enrique Fletcher Varicose veins of both lower extremities with pain Active Diagnosis 01/28/2014 Hamlet Guzmán DJD Lower backSpondylosis with myelopathy, lumbar region Active Diagnosis 01/28/2014 Hamlet Guzmán Obesity, unspecified Active Problem 01/28/2014 Hamlet Guzmán Swelling of limb Active Diagnosis 01/28/2014 Hamlet Guzmán Tricuspid valve disorders, specified as nonrheumatic Active Problem 01/28/2014 Hamlet Guzmán Hypercholesterolemia Active Problem 01/28/2014 Hamlet Guzmán Abnormal EKG Active Problem 01/28/2014 Hamlet Guzmán Diabetes with unspecified complication, type II or unspecified type, not stated as uncontrolled Active Problem 01/28/2014 Hamlet Guzmán Shortness of breath Active Problem 01/28/2014 Hamlet Guzmán Sinus Bradycardia Active Problem 01/28/2014 Hamlet Guzmán Mitral valve disorders Active Diagnosis 01/28/2014 Hamlet Guzmán HTN heart dis benign, without CHF Active Problem 01/28/2014 Hamlet Guzmán Chest Pain Active Problem 01/28/2014 Hamlet Guzmán Atherosclerosis of [place] arteries of the extremities with intermittent claudication Active Problem 01/28/2014 Hamlet Guzmán Angina Active Problem 01/28/2014 Hamlet Guzmán Medications Medication Details Route Status Patient Instructions Ordering Provider Order Date Source OrthoVisc 2 ml in the R) knee Intra-articular Active 30 MG/2ML Intra-articular Once a week for three weeks Fletcher 11/03/2018 Carlos Enrique Fletcher OrthoVisc 2 ml in R knee Intra- articular Active 30 MG/2ML Intra- articular every 6 months Leyva 10/17/2018 Carlos Enrique Fletcher Albuterol Sulfate (Proair Hfa Inhaler*) 8.5 Gm Inh As Needed Active [facility] Amiodarone Hcl 200 Mg Tablet Bedtime Active [facility] Aspirin (Aspir 81) 81 Mg Tablet.dr Daily Active [facility] Atorvastatin Calcium 20 Mg Tablet Bedtime Active [facility] Bumetanide 1 Mg Tablet Daily Active [facility] Calcium Daily Active [facility] Cholecalciferol (Vitamin D3) (Vitamin D) 1,000 Unit Tablet Twice A Day Active [facility] Eliquis Twice A Day Active [facility] Farxiga Daily Active [facility] Glimepiride 2 Mg Tablet Daily Active [facility] Propranolol Hcl 40 Mg Tablet Twice A Day Active [facility] Sodium Bicarbonate 650 Mg Tablet Twice A Day Active [facility] Toujeo Solostar Daily Active [facility] Vit A/Vit C/Vit E/Zinc/Copper (Preservision Areds Softgel) 1 Each Capsule Twice A Day Active [facility] ProAir HFA 2 puffs as needed Inhalation Active 108 (90 Base) MCG/ACT Inhalation every 4 hrs Gordon Fletcher Sodium Bicarbonate 3 tablets Orally Active 650 MG Orally twice a day Gordon Fletcher Bumetanide as directed Orally Active 0.5 MG Orally Carlos Enrique Proctor Atorvastatin Calcium 1 tablet Orally Active 40 MG Orally Once a day Carlos Enrique Proctor Prolia 60MG SQ Subcutaneous Active 60 MG/ML Subcutaneous [id number] Gordon Fletcher Glimepiride 1/2 tablet Orally Active 2 MG Orally Once a day Carlos Enrique Proctor Amiodarone HCl 1 tablet Orally Active 200 MG Orally Once a day Carlos Enrique Proctor Aspirin 1 tablet Orally Active 81 MG Orally Once a day Gordon Fletcher Anoro Ellipta 1 puff Inhalation Active 62.5-25 MCG/INH Inhalation Once a day Leyva Carlos Enrique Corral Farxiga 1 tablet Orally Active 5 MG Orally Once a day [place] Carlos Enrique Fletcher Vitamin D 1 capsule Orally Active 2000 iu Orally twice a day [place] Carlos Enrique Fletcher Eliquis 1 tablet Orally Active 5 MG Orally once a day [place] Carlos Enrique Fletcher PreserVision AREDS as directed Orally Active Orally [place] Carlos Enrique Corral Calcium 1 tablet with meals Orally Active 600 MG Orally Twice a day [place] Hamlet PérezranjitCarlos Enrique garrido Atenolol 1 tablet Orally Active 50 MG Orally Once a day [place] Carlos Enrique Fletcher Tylenol Arthritis Pain 2 tablets Orally Active 650 MG Orally twice a day [place] Carlos Enrique Corral Felodipine ER 1 tablet Orally Active 5 MG Orally Once a day [place] Carlos Enrique Fletcher Furosemide 1 tablet Orally Active 20 MG Orally Once a day [place] Carlos Enrique Fletcher Omeprazole 1 capsule Orally Active 20 MG Orally Once a day Betohema Guzmán Sodium Bicarbonate 1 tablet Orally Active 10 mg Orally BID Arielle Gzumán Propranolol HCl 1 tablet Orally Active 20 MG Orally Twice a day Arielle Guzmán Advair Diskus 1 puff Inhalation Active 250-50 MCG/DOSE Inhalation Twice a day Arielle Guzmán Farxiga 1 tablet Orally Active 5 MG Orally Once a day Arielle Guzmán Aspirin 81 1 tablet Orally Active 81 MG Orally Once a day Arielle Pérezranjithema Eliquis as directed Orally Active 2.5 MG Orally twice a day (bid) Arielle Guzmán Toujessicao SoloStar 8 units pm 4 units am Subcutaneous Active 300 UNIT/ML Subcutaneous daily Arielle Guzmán Vitamin D as directed Orally Active 2000 UNIT Orally Once a day Arielle Guzmán PreserVision AREDS 2 as directed Orally Active Orally BID Arielle Guzmán Januvia 1 tablet Orally Active 100 MG Orally Once a day [place] Carlos Enrique Corral Tylenol Arthritis Pain as directed Orally Active 2/650 MG Orally BID Arielle Guzmán Atorvastatin Calcium 1 tablet Orally Active 40 mg [facility] Arist[facility] Aspirin EC Low Dose 1 tablet Orally Active 81 MG Orally Once a day [facility] Mason Guzmán Glimepiride 1/2 tablet Orally Active 2 MG Orally Once a day [facility] Hamlet Guzmán PreserVision AREDS 2 as directed Orally Active Orally BID Betohema Guzmán Advair Diskus 1 puff Inhalation Active 250-50 MCG/DOSE Inhalation Twice a day [facility] Mason Guzmán Calcium 1 tablet with meals Orally Active 600 MG Orally Once a day [facility] Hamlet Guzmán Furosemide 1 tablet Orally Active 20 mg Orally Once a day [facility] Mason Pérezhema Atenolol 1 tablet Orally Active 50 mg Orally Once a day [facility] Betohema Januvia 1 tablet Orally Active 100 MG Orally [facility] Omeprazole 1 capsule Orally Active 20 MG Orally Once a day [facility] Mason Guzmán Vitamin D as directed Orally Active 2000 UNIT Orally [facility] Allopurinol 1 tablet Orally Active 100 MG Orally [facility] Felodipine ER 1 tablet Orally Active 5 MG Orally Once a day [facility] Mason Guzmán Sodium Bicarbonate 1 tablet Orally Active 650 MG Orally BID [facility] Hamlet Guzm[facility] Allergies, Adverse Reactions, Alerts Substance Category Reaction Severity Reaction type Status Date Reported Comments Source Codeine Adverse Reaction Stomach Upset Adverse Reaction Active 09/16/2017 [facility] Arielle Codeine Sulfate Adverse Reaction Info Not Available Adverse Reaction Active 12/09/2018 Carlos Enrique Fletcher Immunizations No Data Provided for This Section Results Order Name Results Value Reference Range Date Interpretation Comments Source Capillary blood glucose measurement by glucometer (mass/volume) Capillary blood glucose measurement by glucometer (mass/volume) 301 70 - 120 09/26/2017 [facility] Estimated glomerular filtration rate (GFR) determination Estimated glomerular filtration rate (GFR) determination 24 60 09/26/2017 [facility] Glucose measurement Glucose measurement 92 74 - 118 09/26/2017 [facility] Serum or plasma anion gap Serum or plasma anion gap 16.1 8 - 16 09/26/2017 [facility] Serum or plasma calcium measurement (mass/volume) Serum or plasma calcium measurement (mass/volume) 9.7 8.4 - 10.2 09/26/2017 [facility] Serum or plasma carbon dioxide, total measurement (moles/volume) Serum or plasma carbon dioxide, total measurement (moles/volume) 33 22 - 29 09/26/2017 [facility] Serum or plasma chloride measurement (moles/volume) Serum or plasma chloride measurement (moles/volume) 97 98 - 107 09/26/2017 [facility] Serum or plasma creatinine measurement (mass/volume) Serum or plasma creatinine measurement (mass/volume) 1.99 0.57 - 1.11 09/26/2017 [facility] Serum or plasma potassium measurement (moles/volume) Serum or plasma potassium measurement (moles/volume) 4.1 3.5 - 5.1 09/26/2017 [facility] Serum or plasma sodium measurement (moles/volume) Serum or plasma sodium measurement (moles/volume) 142 136 - 145 09/26/2017 [facility] Serum or plasma trough vancomycin level at trough (mass/volume) Serum or plasma trough vancomycin level at trough (mass/volume) 12.1 5.0 - 10.0 09/26/2017 [facility] Serum or plasma urea nitrogen measurement (mass/volume) Serum or plasma urea nitrogen measurement (mass/volume) 45 7 - 26 09/26/2017 [facility] Serum or plasma urea nitrogen/creatinine mass ratio Serum or plasma urea nitrogen/creatinine mass ratio 23 6 - 25 09/26/2017 [facility] Automated blood basophil count (count/volume) Automated blood basophil count (count/volume) 0.0 0.0 - 0.1 09/25/2017 [facility] Automated blood basophil count as percentage of total leukocytes Automated blood basophil count as percentage of total leukocytes 0.3 0.0 - 1.0 09/25/2017 [facility] Automated blood eosinophil count Automated blood eosinophil count 0.6 0.0 - 0.4 09/25/2017 [facility] Automated blood eosinophil count as percentage of total leukocytes Automated blood eosinophil count as percentage of total leukocytes 5.3 0.0 - 6.0 09/25/2017 [facility] Automated blood hematocrit (volume fraction) Automated blood hematocrit (volume fraction) 32.4 34.2 - 44.1 09/25/2017 [facility] Automated blood lymphocyte count as percentage ot total leukocytes Automated blood lymphocyte count as percentage ot total leukocytes 11.8 18.0 - 39.1 09/25/2017 [facility] Automated blood monocyte count as percentage of total leukocytes Automated blood monocyte count as percentage of total leukocytes 10.9 4.4 - 11.3 09/25/2017 [facility] Automated blood neutrophil count Automated blood neutrophil count 7.7 2.1 - 6.9 09/25/2017 [facility] Automated blood platelet count (count/volume) Automated blood platelet count (count/volume) 243 140 - 360 09/25/2017 [facility] Automated blood segmented neutrophil count as percentage of total leukocytes Automated blood segmented neutrophil count as percentage of total leukocytes 71.1 38.7 - 80.0 09/25/2017 [facility] Automated erythrocyte mean corpuscular hemoglobin (mass per erythrocyte) Automated erythrocyte mean corpuscular hemoglobin (mass per erythrocyte) 28.3 28 - 32 09/25/2017 [facility] Automated erythrocyte mean corpuscular hemoglobin concentration measurement (mass/volume) Automated erythrocyte mean corpuscular hemoglobin concentration measurement (mass/volume) 31.5 31 - 35 09/25/2017 [facility] Automated erythrocyte mean corpuscular volume Automated erythrocyte mean corpuscular volume 89.8 81 - 99 09/25/2017 [facility] Blood erythrocytes automated count (number/volume) Blood erythrocytes automated count (number/volume) 3.61 3.6 - 5.1 09/25/2017 [facility] Blood hemoglobin measurement (moles/volume) Blood hemoglobin measurement (moles/volume) 10.2 12.0 - 16.0 09/25/2017 [facility] Blood leukocytes automated count (number/volume) Blood leukocytes automated count (number/volume) 10.77 4.8 - 10.8 09/25/2017 [facility] Blood lymphocytes count (number/volume) Blood lymphocytes count (number/volume) 1.3 1.0 - 3.2 09/25/2017 [facility] Blood monocytes automated count (number/volume) Blood monocytes automated count (number/volume) 1.2 0.2 - 0.8 09/25/2017 [facility] Red Cell Distribution Width 17.2 11.7 - 14.4 09/25/2017 [facility] IM GRANULOCYTES % 0.6 0.0 - 1.0 09/25/2017 [facility] Absolute Immature Granulocyte (auto 0.06 0 - 0.1 09/25/2017 [facility] Serum or plasma creatine kinase MB measurement (mass/volume) Serum or plasma creatine kinase MB measurement (mass/volume) 0.60 0 - 5.0 09/23/2017 [facility] Serum or plasma creatine kinase measurement (enzymatic activity/volume) Serum or plasma creatine kinase measurement (enzymatic activity/volume) 19 29 - 168 09/23/2017 [facility] Troponin I measurement by highly sensitive enzyme immunoassay Troponin I measurement by highly sensitive enzyme immunoassay 0.020 0 - 0.300 09/23/2017 [facility] Plasma globulin measurement (mass/volume) Plasma globulin measurement (mass/volume) 2.9 2.3 - 3.5 09/23/2017 [facility] Serum or plasma alanine aminotransferase measurement (enzymatic activity/volume) Serum or plasma alanine aminotransferase measurement (enzymatic activity/volume) 39 0 - 55 09/23/2017 [facility] Serum or plasma albumin measurement (mass/volume) Serum or plasma albumin measurement (mass/volume) 2.4 3.5 - 5.0 09/23/2017 [facility] Serum or plasma albumin/globulin mass ratio Serum or plasma albumin/globulin mass ratio 0.8 0.8 - 2.0 09/23/2017 [facility] Serum or plasma alkaline phosphatase measurement (enzymatic activity/volume) Serum or plasma alkaline phosphatase measurement (enzymatic activity/volume) 164 40 - 150 09/23/2017 [facility] Serum or plasma protein measurement (mass/volume) Serum or plasma protein measurement (mass/volume) 5.3 6.5 - 8.1 09/23/2017 [facility] Serum or plasma total bilirubin measurement (mass/volume) Serum or plasma total bilirubin measurement (mass/volume) 1.2 0.2 - 1.2 09/23/2017 [facility] Aspartate Amino Transf (AST/SGOT) 29 5 - 34 09/23/2017 [facility] Activated partial thromboplastin time (aPTT) in platelet poor plasma bycoagulation assay Activated partial thromboplastin time (aPTT) in platelet poor plasma bycoagulation assay 30.8 23.8 - 35.5 09/22/2017 [facility] Blood culture Blood culture NO GROWTH AFTER 72 HOURS 09/22/2017 [facility] INR in Platelet poor plasma by Coagulation assay INR in Platelet poor plasma by Coagulation assay 1.35 09/22/2017 [facility] Prothrombin time (PT) in platelet poor plasma by coagulation assay Prothrombin time (PT) in platelet poor plasma by coagulation assay 15.7 11.9 - 14.5 09/22/2017 [facility] Lactic Acid Level 28.3 4.5 - 19.8 09/22/2017 [facility] B-Type Natriuretic Peptide 2519.7 0 - 100 09/22/2017 [facility] Pathology Reports No Data Provided for This Section Diagnostic Reports No Data Provided for This Section Consultation Notes No Data Provided for This Section Discharge Summaries No Data Provided for This Section History and Physicals No Data Provided for This Section Vital Signs Vital Sign Value Date Comments Source Weight 190.3 12/09/2018 Carlos Enrique Fletcher Height 61 12/09/2018 Carlos Enrique Fletcher Temperature Oral (F) 97.8 F 12/09/2018 Carlos Enrique Fletcher Heart Rate 72 12/09/2018 Carlos Enrique Fletcher Diastolic (mm Hg) 64 12/09/2018 Carlos Enrique Fletcher Systolic (mm Hg) 118 12/09/2018 Carlos Enrique Fletcher Weight 184 10/14/2018 Carlos Enrique Fletcher Height 61 10/14/2018 Carlos Enrique Fletcher Temperature Oral (F) 97.4 F 10/14/2018 Carlos Enrique Fletcher Heart Rate 76 10/14/2018 Carlos Enrique Fletcher Diastolic (mm Hg) 60 10/14/2018 Carlos Enrique Fletcher Systolic (mm Hg) 116 10/14/2018 Carlos Enrique Fletcher Weight 175.4 04/08/2018 Carlos Enrique Fletcher Height 61 04/08/2018 Carlos Enrique Fletcher Temperature Oral (F) 97.8 F 04/08/2018 Carlos Enrique Fletcher Heart Rate 76 04/08/2018 Carlos Enrique Fletcher Diastolic (mm Hg) 70 04/08/2018 Carlos Enrique Fletcher Systolic (mm Hg) 110 04/08/2018 Carlos Enrique Fletcher Weight 195 09/16/2017 Mohamed O Betooudi Height 64 09/16/2017 Mohamed O Jeroudi Temperature Oral (F) 98.3 F 09/16/2017 Mohamed O Jeroudi Heart Rate 102 09/16/2017 Mohamed O Jeroudi Diastolic (mm Hg) 80 09/16/2017 Mohamed O Jeroudi Systolic (mm Hg) 112 09/16/2017 Mohamed O Jeroudi Weight 195 09/16/2017 Carlos Enrique Fletcher Height 61 09/16/2017 Carlos Enrique Fletcher Temperature Oral (F) 98.8 F 09/16/2017 Carlos Enrique Fletcher Heart Rate 88 09/16/2017 Carlos Enrique Fletcher Diastolic (mm Hg) 62 09/16/2017 Carlos Enrique Fletcher Systolic (mm Hg) 118 09/16/2017 Carlos Enrique Fletcher Weight 203 01/18/2014 Mohamed O Jeroudi Height 64 01/18/2014 Mohamed O Jeroudi Temperature Oral (F) 96.7 F 01/18/2014 Mohamed O Jeroudi Heart Rate 57 01/18/2014 Mohamed O Jeroudi Diastolic (mm Hg) 55 01/18/2014 Mohamed O Jeroudi Systolic (mm Hg) 115 01/18/2014 Mohamed O Jeroudi Encounters Location Location Details Encounter Type Encounter Number Reason For Visit Attending Provider ADM Date DC Date Status Source Hamlet Guzmán [facility] [id number] 01/18/2014 01/18/2014 Hamlet Guzmán Registered Referred [id number] EZEQUIEL RUIZ MD 07/23/2017 [facility] Registered Clinic [id number] JEAN NIÑO MD 09/20/2017 [facility] Discharged Inpatient [id number] JEAN NIÑO MD 09/22/2017 09/26/2017 [facility] Procedures Procedure Code Date Perfomer Comments Source X-ray of chest, two views [id number] 09/22/2017 [facility] Assessment and Plan No Data Provided for This Section Plan of Care Plan of Care Date Source Discharge Date 09/26/17 5:51pm Disposition TRANSFER RESIDENTIAL Prescriptions See Medication Section 09/26/2017 [facility] Social History Social History Date Source Social History Problem Response Recorded Date/Time Onset Date Status Hx Psychiatric Problems No 09/23/2017 12:52am Not Applicable Not Applicable Hx Eating Disorder No 09/23/2017 12:52am Not Applicable Not Applicable Hx Substance Use Disorder No 09/23/2017 12:52am Not Applicable Not Applicable Hx Depression No 09/23/2017 12:52am Not Applicable Not Applicable Hx Alcohol Use No 09/23/2017 12:52am Not Applicable Not Applicable Hx Substance Use Treatment No 09/23/2017 12:52am Not Applicable Not Applicable Hx Physical Abuse No 09/23/2017 12:52am Not Applicable Not Applicable Smoking Status Start Date Stop Date Former smoker 09/26/2017 [facility] Social History ElementQualifiersDate Reported Smoking . Status Former Smoker Quit in 1987Jan 18, 2014 Alcohol Use No. Jan 18, 2014 Alcohol Screening: No. Did you have a drink containing alcohol in the past year?: No, Points: 0, Interpretation: Negative Jan 18, 2014 Marital Status: . Jan 18, 2014 Do you drink alcohol? No. Jan 18, 2014 01/18/2014 Hamlet Guzmán Family History Value Date Source QualifierDescriptionCommentDate Reported Mother stroke Jan 18, 2014 Father heart attack Jan 18, 2014 01/28/2014 Hamlet Guzmán Advance Directives Order Name Results Value Date Source Advance Directives Advance Directives Directive Response Recorded Date/Time Does the patient have an advance directive? Yes 09/23/17 12:52am If yes, is advance directive on file with [facility]? No 09/23/17 12:52am If not on file with [facility] will patient provide a copy? Yes 09/23/17 12:52am Do you have a Directive to Physician? No 09/22/17 9:00pm Do you have a Medical Power of Patent Examiner? No 09/22/17 9:00pm Do you have an out of hospital Do Not Resuscitate Order? No 09/22/17 9:00pm Do you have any special needs we should be aware of? No 09/22/17 9:00pm Do you have a support person here with you today? Yes 09/22/17 9:00pm Did patient receive Notice of Privacy Practices? Yes 09/22/17 9:00pm Did patient receive patient rights and responsibilities? Yes 09/22/17 9:00pm 09/26/2017 [facility] Functional Status No Data Provided for This Section
[2019-01-13] MEDS ORDERED: CEFTRIAXONE SOD 1 GM/NS 50 ML 50 ML IV STA (12:40)
[2019-01-13] MEDS ORDERED: ALBUTEROL SULF 0.083% NEB SOLN 3 ML NEB NEB STA (12:40)
[2019-01-13] MEDS ORDERED: IPRATROPIUM BROMIDE 0.02% 2.5 ML NEB NEB STA (12:40)
--- OUTSIDE RECORDS SUMMARY | 2019-01-13 12:40 | XMS REPORT ---
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 Active Assessment DJD Lower backSpondylosis with myelopathy, lumbar region 721.42 Active Problem Obesity, unspecified 278.00 Active Assessment Swelling of limb 729.81 Active Problem Tricuspid valve disorders, 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 Active Assessment Obesity, unspecified 278.00 Active Problem Hypercholesterolemia 272.0 Active Problem Abnormal EKG 794.31 Active Problem Diabetes with unspecified complication, type II or unspecified type, not stated as uncontrolled 250.90 Active Problem Shortness of breath 786.05 Active Problem Sinus Bradycardia 427.89 Active Assessment 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 Active Assessment Tricuspid valve disorders, 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 Active Problem 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 Active Assessment Diabetes with unspecified complication, type II or unspecified type, not stated as uncontrolled 250.90 Active Problem HTN heart dis benign, without CHF 402.10 Active Problem Chest Pain 786.51 Active Problem Atherosclerosis of [place] arteries of the extremities with intermittent claudication 440.21 Active Problem Angina 413.9 Active Assessment Sinus Bradycardia 427.89 Active Assessment Shortness of breath 786.05 Active Assessment Hypercholesterolemia 272.0 Active Assessment Abnormal EKG 794.31 Active Problem DJD Lower backSpondylosis with myelopathy, lumbar region 721.42 Active Problem Swelling of limb 729.81 Active Assessment HTN heart dis benign, without CHF 402.10 Active Problem 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 Active Medications Medication Code System Code Instructions Start Date End Date Status Dosage Tylenol Arthritis Pain [facility] [address]-15 2/650 MG Orally BID Active as directed Atorvastatin Calcium [facility] [address]-75 40 mg Orally Once a day Active 1 tablet Aristides Aspirin EC Low Dose [facility] [address]-37 81 MG Orally Once a day Active 1 tablet Glimepiride [facility] [address]-14 2 MG Orally Once a day Active 1/2 tablet PreserVision AREDS 2 [facility] [address]-83 Orally BID Active as directed Advair Diskus [facility] [address]-41 250-50 MCG/DOSE Inhalation Twice a day Active 1 puff Calcium [facility] [address]-12394 600 MG Orally Once a day Active 1 tablet with meals Furosemide [facility] [address]-48 20 mg Orally Once a day Active 1 tablet Atenolol [facility] [address]-49 50 mg Orally Once a day Active 1 tablet Januvia [facility] [address]-81 100 MG Orally Once a day Active 1 tablet Omeprazole [facility] [address]-55 20 MG Orally Once a day Active 1 capsule Vitamin D [facility] [address]-92 2000 UNIT Orally Once a day Active as directed Allopurinol [facility] [address]-14 100 MG Orally Once a day Active 1 tablet Felodipine ER [facility] [address]-71 5 MG Orally Once a day Active 1 tablet Sodium Bicarbonate [facility] [address]-31 650 MG Orally BID Active 1 tablet Social History Social History Element Qualifiers Date Reported Smoking . Status Former Smoker Quit in 1987Jan 18, 2014 Alcohol Use No. Jan 18, 2014 Alcohol Screening: No. Did you have a drink containing alcohol in the past year?: No, Points: 0, Interpretation: Negative Jan 18, 2014 Marital Status: . Jan 18, 2014 Do you drink alcohol? No. Jan 18, 2014 Family history Qualifier Description Comment Date Reported Mother stroke Jan 18, 2014 Father heart attack Jan 18, 2014 Vital Signs Date/Time: Jan 18, 2014 Weight 203 lbs Height 64 in Temperature 96.7 F Cardiac Monitoring Heart Rate 57 /min Blood Pressure Diastolic 55 mm Hg Blood Pressure Systolic 115 mm Hg Results Electrocardiogram (ECG) Summary Purpose [employer] Submission
[2019-01-13] MEDS ORDERED: METHYLPREDNISOLONE SOD SUCC 125 MG/2ML VIAL IV STA (12:44)
[2019-01-13 13:11] LABS: BASOPHILS # (AUTO) 0.1 (0.0-0.1); BASOPHILS % 0.4 % (0.0-1.0); EOSINOPHILS # (AUTO) 0.6 (0.0-0.4); HEMATOCRIT 33.2 % (34.2-44.1); HEMOGLOBIN 10.5 g/dL (12.0-16.0); LYMPHOCYTES # (AUTO) 1.6 (1.0-3.2); LYMPHOCYTES % 14.5 % (18.0-39.1); MEAN CORPUSCULAR HEMOGLOBIN 27.9 pg (28-32); MEAN CORPUSCULAR HGB CONC 31.6 g/dL (31-35); MEAN CORPUSCULAR VOLUME 88.1 fL (81-99); MONOCYTES # (AUTO) 1.2 (0.2-0.8); MONOCYTES % 10.4 % (4.4-11.3); NEUTROPHILS # (AUTO) 7.8 (2.1-6.9); NEUTROPHILS % 69.3 % (38.7-80.0); PLATELET COUNT 204 x10e3/uL (140-360); RED BLOOD COUNT 3.77 x10e6/uL (3.6-5.1); RED CELL DISTRIBUTION WIDTH 15.5 % (11.7-14.4)
[2019-01-13] MEDS ORDERED: FUROSEMIDE INJ 10 MG/ML 2 ML VIAL IV ONE (13:15)
[2019-01-13 13:24] LABS: INR 1.26; PROTHROMBIN TIME 16.4 seconds (11.9-14.5)
[2019-01-13 13:25] LABS: PARTIAL THROMBOPLASTIN TIME 31.1 seconds (23.8-35.5)
[2019-01-13 13:33] LABS: ABG HCO3 28 mmol/L (23-28); ABG PCO2 46 mmHg (41-51); ABG PH 7.39 (7.31-7.41); ABG PO2 130 mmHg (80-105)
[2019-01-13 13:35] LABS: ALBUMIN 3.2 g/dL (3.5-5.0); ALBUMIN/GLOBULIN RATIO 0.9 (0.8-2.0); ANION GAP 20.7 mmol/L (8-16); CALCIUM 9.8 mg/dL (8.4-10.2); CREATININE, SERUM 3.66 mg/dL (0.57-1.11); POTASSIUM 4.7 mmol/L (3.5-5.1)
[2019-01-13 13:36] LABS: B-TYPE NATRIURETIC PEPTIDE2 994.3 pg/mL (0-100)
--- NOTE | 2019-01-13 13:37 | NUR ---
pt provided bedside commode
[2019-01-13 13:43] LABS: BILIRUBIN,URINE NEGATIVE (NEGATIVE); CLARITY,URINE CLEAR (CLEAR); COLOR,URINE YELLOW (YELLOW); KETONES,URINE NEGATIVE (NEGATIVE); LEUKOCYTE ESTERASE ,URINE NEGATIVE (NEGATIVE); NITRITE,URINE NEGATIVE (NEGATIVE); PROTEIN,URINE DIPSTICK NEGATIVE (NEGATIVE); URINE UROBILINOGEN 0.2 mg/dL (0.2 - 1)
[2019-01-13 13:54] LABS: THYROID STIMULATING HORMONE 1.687 uIU/mL (0.350-4.940)
--- NOTE | 2019-01-13 13:54 | Diagnostic Imaging Report ---
EXAMINATION: CHEST SINGLE (PORTABLE) INDICATION: Shortness of breath COMPARISON: Chest radiograph of 09/22/2017 FINDINGS: LINES/TUBES:EKG leads overlie the chest. LUNGS:The lungs are moderately inflated. There is perihilar fullness and indistinctness of the pulmonary vasculature. PLEURA:Small right pleural effusion. No pneumothorax. MEDIASTINUM:Cardiomediastinal silhouette is stably enlarged. Atherosclerotic calcifications of the thoracic aorta. BONES/SOFT TISSUES:No acute osseous injury. ABDOMEN:No free air under the diaphragm. IMPRESSION: Pulmonary edema and cardiomegaly. Signed by: Douglas Castaneda MD on 01/13/2019 1:50 PM
[2019-01-13 13:55] LABS: BACTERIA,URINE RARE /HPF; EPITHELIAL CELLS,URINE RARE /LPF
[2019-01-13] MEDS ORDERED: FUROSEMIDE INJ 10 MG/ML 4 ML VIAL IV ONE (14:00)
[2019-01-13] MEDS ORDERED: DEXTROSE 50% SYRINGE 50 ML IV PRN (14:00)
--- OUTSIDE RECORDS SUMMARY | 2019-01-13 14:09 | XMS REPORT | Continuity of Care Document ---
Author Author [facility] Organization [facility] Address Unknown Phone Unavailable Care Team Providers Care Commercial Construction Project Manager Name Role Phone [facility] [place] [facility] [place] Unavailable Unavailable Problems Problem Status Onset Date Classification Date Reported Comments Source CHF Active Problem 09/26/2017 [facility] Cellulitis of left lower extremity without foot Active Problem 09/26/2017 [facility] Pulmonary edema Active Problem 09/26/2017 [facility] Vitamin D deficiency Active Problem 12/11/2018 Carlos [...] Shortness of breath Active Diagnosis 11/14/2018 Hamlet Guzmná Abnormal EKG Active Diagnosis 11/14/2018 Hamlet Guzmán Congestive heart failure with LV diastolic dysfunction, NYHA class 1 Active Problem 11/14/2018 Hamlet Guzmán Persistent atrial fibrillation Active Problem 11/14/2018 Hamlet Guzmán Atherosclerosis of [place] coronary artery of [place] heart with angina pectoris Active Problem 11/14/2018 Hamlet Guzmán Atherosclerosis of [place] coronary artery of [place] heart without angina pectoris Active Problem 11/14/2018 [...] Active Problem 01/28/2014 Hamlet Guzmán Atherosclerosis of [place] arteries of the extremities with intermittent claudication [...] Inhaler*) 8.5 Gm Inh As Needed Active [facility] Amiodarone Hcl 200 Mg Tablet Bedtime Active [facility] Aspirin (Aspir 81) 81 Mg Tablet.dr Daily Active [facility] Atorvastatin Calcium 20 Mg Tablet Bedtime Active [facility] Bumetanide 1 Mg Tablet Daily Active [facility] Calcium Daily Active [facility] Cholecalciferol (Vitamin D3) (Vitamin D) 1,000 Unit Tablet Twice A Day Active [facility] Eliquis Twice A Day Active [facility] Farxiga Daily Active [facility] Glimepiride 2 Mg Tablet Daily Active [facility] Propranolol Hcl 40 Mg Tablet Twice A Day Active [facility] Sodium Bicarbonate 650 Mg Tablet Twice A Day Active [facility] Toujeo Solostar Daily Active [facility] Vit A/Vit C/Vit E/Zinc/Copper (Preservision Areds Softgel) 1 Each Capsule Twice A Day Active [facility] ProAir HFA 2 puffs as needed Inhalation [...] 60MG SQ Subcutaneous Active 60 MG/ML Subcutaneous [id number] Gordon Fletcher Glimepiride 1/2 tablet Orally Active 2 MG Orally Once a day Carlos Enrique rPoctor Amiodarone HCl 1 tablet Orally Active 200 MG Orally Once a day [place] Enrique Proctor Aspirin 1 tablet Orally Active 81 MG Orally Once a day Gordon Fletcher Anoro Ellipta 1 puff Inhalation Active 62.5-25 MCG/INH Inhalation Once a day [place] Carlos Enrique Corral Farxiga 1 tablet Orally Active 5 MG Orally Once a day [place] Carlos Enrique Fletcher Vitamin D 1 capsule Orally Active 2000 iu Orally twice a day [place] Carlos Enrique Fletcher Eliquis 1 tablet Orally Active 5 MG Orally once a day [place] Enrique Fletcher PreserVision AREDS as directed Orally Active Orally [place] Enrique Corral Calcium 1 tablet with meals Orally Active 600 MG Orally Twice a day [place] Hamlet PérezranjitCarlos Enrique garrido Atenolol 1 tablet Orally Active 50 MG Orally Once a day [place] Enrique Fletcher Tylenol Arthritis Pain 2 tablets Orally Active 650 MG Orally twice a day [place] Enrique Corral Felodipine ER 1 tablet Orally Active 5 MG Orally Once a day [place] Enrique Fletcher Furosemide 1 tablet Orally Active 20 MG Orally Once a day [place] Enrique Fletcher Omeprazole 1 capsule Orally Active 20 MG Orally Once a day Betohema Guzmán Sodium Bicarbonate 1 tablet Orally Active 10 mg Orally BID Arielle Guzmán Propranolol HCl 1 tablet Orally Active 20 [...] Active 100 MG Orally Once a day [place] Enrique Corral Tylenol Arthritis Pain as directed Orally Active 2/650 MG Orally BID Arielle Guzmán Atorvastatin Calcium 1 tablet Orally Active 40 mg Orally [facility] a day [facility] Aristides Aspirin EC Low Dose 1 tablet Orally Active 81 MG Orally Once a day [facility] Mason Guzmán Glimepiride 1/2 tablet Orally Active 2 MG Orally Once a day [facility] Hamlet Guzmán PreserVision AREDS 2 as directed Orally Active Orally BID Betohema Guzmán Advair Diskus 1 puff Inhalation Active 250-50 MCG/DOSE Inhalation Twice a day [facility] Mason Guzmán Calcium 1 tablet with meals Orally Active 600 MG Orally Once a day [facility] Hamlet Guzmán Furosemide 1 tablet Orally Active 20 mg Orally Once a day [facility] Mason Pérezhema Atenolol 1 tablet Orally Active 50 mg Orally Once a day [facility] Betohema Januvia 1 tablet Orally Active 100 MG Orally Once a day [facility] Omeprazole 1 capsule Orally Active 20 MG Orally Once a day [facility] Mason Guzmán Vitamin D as directed Orally Active 2000 UNIT Orally Once a day [facility] Allopurinol 1 tablet Orally Active 100 MG Orally Once a day [facility] Felodipine ER 1 tablet Orally Active 5 MG Orally Once a day [facility] Mason Guzmán Sodium Bicarbonate 1 tablet Orally Active 650 MG Orally BID [facility] Hamlet Guzmán Allergies, Adverse Reactions, Alerts Substance Category Reaction Severity Reaction type Status Date Reported Comments Source Codeine Adverse Reaction Stomach Upset Adverse Reaction Active 09/16/2017 [facility] Arielle Codeine Sulfate Adverse Reaction Info Not Available Adverse Reaction Active 12/09/2018 [place] Enrique Fletcher Immunizations No Data Provided for This Section Results Order Name Results Value Reference Range Date Interpretation Comments Source Capillary blood glucose measurement by glucometer (mass/volume) Capillary blood glucose measurement by glucometer (mass/volume) 301 70 - 120 09/26/2017 [facility] Estimated glomerular filtration rate (GFR) determination Estimated glomerular filtration rate (GFR) determination 24 60 09/26/2017 [facility] Glucose measurement Glucose measurement 92 74 - 118 09/26/2017 [facility] Serum or plasma anion gap Serum or plasma anion gap 16.1 8 - 16 09/26/2017 [facility] Serum or plasma calcium measurement (mass/volume) Serum or plasma calcium measurement (mass/volume) 9.7 8.4 - 10.2 09/26/2017 [facility] Serum or plasma carbon dioxide, total measurement (moles/volume) Serum or plasma carbon dioxide, total measurement (moles/volume) 33 22 - 29 09/26/2017 [facility] Serum or plasma chloride measurement (moles/volume) Serum or plasma chloride measurement (moles/volume) 97 98 - 107 09/26/2017 [facility] Serum or plasma creatinine measurement (mass/volume) Serum or plasma creatinine measurement (mass/volume) 1.99 0.57 - 1.11 09/26/2017 [facility] Serum or plasma potassium measurement (moles/volume) Serum or plasma potassium measurement (moles/volume) 4.1 3.5 - 5.1 09/26/2017 [facility] Serum or plasma sodium measurement (moles/volume) Serum or plasma sodium measurement (moles/volume) 142 136 - 145 09/26/2017 [facility] Serum or plasma trough vancomycin level at trough (mass/volume) Serum or plasma trough vancomycin level at trough (mass/volume) 12.1 5.0 - 10.0 09/26/2017 [facility] Serum or plasma urea nitrogen measurement (mass/volume) Serum or plasma urea nitrogen measurement (mass/volume) 45 7 - 26 09/26/2017 [facility] Serum or plasma urea nitrogen/creatinine mass ratio Serum or plasma urea nitrogen/creatinine mass ratio 23 6 - 25 09/26/2017 [facility] Automated blood basophil count (count/volume) Automated blood basophil count (count/volume) 0.0 0.0 - 0.1 09/25/2017 [facility] Automated blood basophil count as percentage of total leukocytes Automated blood basophil count as percentage of total leukocytes 0.3 0.0 - 1.0 09/25/2017 [facility] Automated blood eosinophil count Automated blood eosinophil count 0.6 0.0 - 0.4 09/25/2017 [facility] Automated blood eosinophil count as percentage of total leukocytes Automated blood eosinophil count as percentage of total leukocytes 5.3 0.0 - 6.0 09/25/2017 [facility] Automated blood hematocrit (volume fraction) Automated blood hematocrit (volume fraction) 32.4 34.2 - 44.1 09/25/2017 [facility] Automated blood lymphocyte count as percentage ot total leukocytes Automated blood lymphocyte count as percentage ot total leukocytes 11.8 18.0 - 39.1 09/25/2017 [facility] Automated blood monocyte count as percentage of total leukocytes Automated blood monocyte count as percentage of total leukocytes 10.9 4.4 - 11.3 09/25/2017 [facility] Automated blood neutrophil count Automated blood neutrophil count 7.7 2.1 - 6.9 09/25/2017 [facility] Automated blood platelet count (count/volume) Automated blood platelet count (count/volume) 243 140 - 360 09/25/2017 [facility] Automated blood segmented neutrophil count as percentage of total leukocytes Automated blood segmented neutrophil count as percentage of total leukocytes 71.1 38.7 - 80.0 09/25/2017 [facility] Automated erythrocyte mean corpuscular hemoglobin (mass per erythrocyte) Automated erythrocyte mean corpuscular hemoglobin (mass per erythrocyte) 28.3 28 - 32 09/25/2017 [facility] Automated erythrocyte mean corpuscular hemoglobin concentration measurement (mass/volume) Automated erythrocyte mean corpuscular hemoglobin concentration measurement (mass/volume) 31.5 31 - 35 09/25/2017 [facility] Automated erythrocyte mean corpuscular volume Automated erythrocyte mean corpuscular volume 89.8 81 - 99 09/25/2017 [facility] Blood erythrocytes automated count (number/volume) Blood erythrocytes automated count (number/volume) 3.61 3.6 - 5.1 09/25/2017 [facility] Blood hemoglobin measurement (moles/volume) Blood hemoglobin measurement (moles/volume) 10.2 12.0 - 16.0 09/25/2017 [facility] Blood leukocytes automated count (number/volume) Blood leukocytes automated count (number/volume) 10.77 4.8 - 10.8 09/25/2017 [facility] Blood lymphocytes count (number/volume) Blood lymphocytes count (number/volume) 1.3 1.0 - 3.2 09/25/2017 [facility] Blood monocytes automated count (number/volume) Blood monocytes automated count (number/volume) 1.2 0.2 - 0.8 09/25/2017 [facility] Red Cell Distribution Width 17.2 11.7 - 14.4 09/25/2017 [facility] IM GRANULOCYTES % 0.6 0.0 - 1.0 09/25/2017 [facility] Absolute Immature Granulocyte (auto 0.06 0 - 0.1 09/25/2017 [facility] Serum or plasma creatine kinase MB measurement (mass/volume) Serum or plasma creatine kinase MB measurement (mass/volume) 0.60 0 - 5.0 09/23/2017 [facility] Serum or plasma creatine kinase measurement (enzymatic activity/volume) Serum or plasma creatine kinase measurement (enzymatic activity/volume) 19 29 - 168 09/23/2017 [facility] Troponin I measurement by highly sensitive enzyme immunoassay Troponin I measurement by highly sensitive enzyme immunoassay 0.020 0 - 0.300 09/23/2017 [facility] Plasma globulin measurement (mass/volume) Plasma globulin measurement (mass/volume) 2.9 2.3 - 3.5 09/23/2017 [facility] Serum or plasma alanine aminotransferase measurement (enzymatic activity/volume) Serum or plasma alanine aminotransferase measurement (enzymatic activity/volume) 39 0 - 55 09/23/2017 [facility] Serum or plasma albumin measurement (mass/volume) Serum or plasma albumin measurement (mass/volume) 2.4 3.5 - 5.0 09/23/2017 [facility] Serum or plasma albumin/globulin mass ratio Serum or plasma albumin/globulin mass ratio 0.8 0.8 - 2.0 09/23/2017 [facility] Serum or plasma alkaline phosphatase measurement (enzymatic activity/volume) Serum or plasma alkaline phosphatase measurement (enzymatic activity/volume) 164 40 - 150 09/23/2017 [facility] Serum or plasma protein measurement (mass/volume) Serum or plasma protein measurement (mass/volume) 5.3 6.5 - 8.1 09/23/2017 [facility] Serum or plasma total bilirubin measurement (mass/volume) Serum or plasma total bilirubin measurement (mass/volume) 1.2 0.2 - 1.2 09/23/2017 [facility] Aspartate Amino Transf (AST/SGOT) 29 5 - 34 09/23/2017 [facility] Activated partial thromboplastin time (aPTT) in platelet poor plasma bycoagulation assay Activated partial thromboplastin time (aPTT) in platelet poor plasma bycoagulation assay 30.8 23.8 - 35.5 09/22/2017 [facility] Blood culture Blood culture NO GROWTH AFTER 72 HOURS 09/22/2017 [facility] INR in Platelet poor plasma by Coagulation assay INR in Platelet poor plasma by Coagulation assay 1.35 09/22/2017 [facility] Prothrombin time (PT) in platelet poor plasma by coagulation assay Prothrombin time (PT) in platelet poor plasma by coagulation assay 15.7 11.9 - 14.5 09/22/2017 [facility] Lactic Acid Level 28.3 4.5 - 19.8 09/22/2017 [facility] B-Type Natriuretic Peptide 2519.7 0 - 100 09/22/2017 [facility] Pathology Reports No Data Provided for This [...] Status Source Hamlet Guzmán MD PA 6 [facility] follow up [id number] 01/18/2014 01/18/2014 Hamlet Guzmán Registered Referred [id number] EZEQUIEL RUIZ MD 07/23/2017 [facility] Registered Clinic [id number] JEAN NIÑO MD 09/20/2017 [facility] Discharged Inpatient [id number] JEAN NIÑO MD 09/22/2017 09/26/2017 [facility] Procedures Procedure Code Date Perfomer Comments Source X-ray of chest, two views [id number] 09/22/2017 [facility] Assessment and Plan No Data Provided for This Section Plan of Care Plan of Care Date Source Discharge Date 09/26/17 5:51pm Disposition TRANSFER [facility] Prescriptions See Medication Section 09/26/2017 [facility] Social History Social History Date Source Social [...] Start Date Stop Date Former smoker 09/26/2017 [facility] Social History ElementQualifiersDate Reported Smoking . Status [...] yes, is advance directive on file with [facility]? No 09/23/17 12:52am If not on file with [facility] will patient provide a copy? Yes 09/23/17 12:52am Do you have a Directive to Physician? No 09/22/17 9:00pm Do you have a Medical Power of Medical Research Assistant? No 09/22/17 9:00pm Do you have an [...] rights and responsibilities? Yes 09/22/17 9:00pm 09/26/2017 [facility] Functional Status No Data Provided for This Section
[2019-01-13 15:21] VITALS: BP 161/99
--- NOTE | 2019-01-13 15:31 | NUR ---
Received patient from ER via stretcher. Accompanied by family member. AAOX3 to time, person, place. Respirations even and unlabored. O2 3L NC. Telemetry #7 afib with bundle branch 69. Oriented patient to room. Instructed to use call light for assistance. Voiced understanding. Will continue to monitor.
[2019-01-13 15:45] VITALS: BP 161/99
[2019-01-13] MEDS ORDERED: FUROSEMIDE40 MG PO (15:52)
[2019-01-13] MEDS: INSULIN REGULAR, HUMAN 100 UNIT/1 ML 3ML VIAL SQ SCH ×2 (16:15→21:36)
[2019-01-13 16:45] VITALS: BP 161/99
[2019-01-13] MEDS ORDERED: FUROSEMIDE INJ 10 MG/ML 4 ML VIAL IV SCH (17:00)
--- NOTE | 2019-01-13 17:52 | NUR ---
aware of new patient. States "Ill be there to do Med Rec"
[2019-01-13] MEDS: APIXAB 2.5 MG TABLET PO SCH (18:28)
--- NOTE | 2019-01-13 18:58 | NUR ---
16 F gonzalez catheter inserted. Draining clear yellow urine. Securement device in place. Radha BUENO assisted in the aseptic insertion of the catheter
[2019-01-13 19:35] VITALS: BP 128/95
--- NOTE | 2019-01-13 19:38 | NUR ---
Report given to oncoming nurse of patient's status. Resting in bed. No s/s of acute distress noted. Side rails upx2, call light within reach.
--- NOTE | 2019-01-13 19:57 | History and Physical ---
CHIEF COMPLAINT: The patient is an 88-year-old female, who comes in with shortness of breath. The patient is brought by EMS, secondary to shortness of breath. HISTORY OF PRESENTING ILLNESS: This is Ms. Christianne Mcclure with history of COPD, history of congestive heart failure, was seen in the clinic about a week ago. Chest x-ray showed increased pulmonary vascular congestion. The patient was asked to double up on her Lasix, but the patient's shortness of breath did get out of control and she was very tachypneic today and EMS was activated, brought here, was found to be in acute systolic heart failure and the patient is admitted for IV diuresis and also for electrolyte replacement. PAST MEDICAL HISTORY: History of atrial fibrillation, history of COPD, history of hypertension, history of hyperlipidemia, history of diabetes mellitus, and history of vitamin D deficiency. MEDICINES: She takes at home are: 1. Amiodarone 200 mg at h.s. 2. Aspirin 81 mg daily. 3. Atorvastatin 40 mg at nighttime. 4. Lasix 40 mg daily. 5. Glimepiride 2 mg daily. 6. Propranolol 40 mg twice a day. 7. Sodium bicarb 650 mg 3 times a day and also takes vitamins. 8. The patient also takes Toujeo 12 units subcutaneous daily. 9. Eliquis 2.5 mg daily. 10. Calcium 600 mg twice a day. PAST SURGICAL HISTORY: History of breast reduction, hernia repair, appendectomy, tonsillectomy, and adenoidectomy. The patient also had a history of tonsillectomy. FAMILY HISTORY: Positive for diabetes and hypertension. ALLERGIES: THE PATIENT HAS NO DRUG ALLERGIES NOTED. REVIEW OF SYSTEMS: Negative for chest pain. No palpitation. Positive for shortness of breath. Positive for PND. Positive for orthopnea and shortness of breath on exertion. No nausea, vomiting, or diarrhea. No constipation. No rectal bleeding. No hematochezia. No hematemesis. PHYSICAL EXAMINATION: GENERAL: The patient is alert and oriented x3 for breathing, better after IV diuresis. VITAL SIGNS: The patient's vital signs right now temperature is 96.9, pulse of 64, blood pressure is 161/99, pulse oximetry 100% of O2 at 3 L. HEENT: Normocephalic, atraumatic. Slight anemia noted. CVS: S1 and S2. Regular. ABDOMEN: Nontender, nondistended. EXTREMITIES: Positive for edema, 2+. The patient has positive bilateral crackles in lower lung bases. LABORATORY VALUES: White count of 7.3, hemoglobin of 10.5, hematocrit of 33.2. Chemistries, sodium 142, potassium of 4.7. BUN is 81, creatinine of 3.66. AST 44. BNP was 994.3. Coags; PT 16.24, INR of 1.26. Urine was essentially negative. IMAGING STUDIES: Chest x-ray shows pulmonary edema and cardiomegaly. ASSESSMENT: Lkxva-zr-[id number] congestive heart failure, systolic. PLAN: 1. IV diuresis. 2. History of atrial fibrillation, continue on anticoagulation Eliquis. 3. Hyperlipidemia. Continue on hyperlipidemic agent. 4. Hypertension. Continue all antihypertensives. Plan is also to keep I's and O's, strict fluid restriction, and also IV diuresis. Further recommendation per clinical course. We will continue to monitor the patient. The patient also has acute renal failure. We will consult Cardiology and also we will consult Nephrology. The patient will be monitored. Daily lytes will be done and possible discharge in 1 to 2 days depending on progression. An echocardiogram is ordered. MD GLORIA Hagan/DELLA /[id number]
[2019-01-13 20:17] VITALS: BP 128/95
[2019-01-13] MEDS ORDERED: ATORVASTATIN 20 MG TAB PO SCH (21:00)
--- NOTE | 2019-01-13 21:15 | NUR ---
PATIENT ASSISTED TO SIT AT THE SIDE OF THE BED, NO ACUTE DISTRESS OBSERVED, SHE DENIES PAIN. CALL LIGHT WITHIN EASY REACH, SHE'S INSTRUCTED TO CALL FOR ASSISTANCE NEEDED.
[2019-01-13 21:21] LABS: CREATINE KINASE MB 3.7 ng/mL (0-5.0)
[2019-01-13] MEDS: SODIUM BICARBONATE 650 MG TAB PO SCH (21:32)
[2019-01-13] MEDS: AMIODARONE HCL 200 MG TAB PO SCH (21:32)
[2019-01-14] VITALS (8 sets, daily range): BP systolic 110–154; BP diastolic 55–96
--- NOTE | 2019-01-14 00:43 | Consultation ---
DATE OF CONSULTATION: 01/13/2019 Cardiac Consultation REASON FOR CONSULTATION: Congestive heart failure, progressively worse. HISTORY OF PRESENT ILLNESS: A delightful 88-year-old lady, who is very well known to me. She is known to have long-standing history of hypertension, diabetes mellitus, hypothyroidism, chronic renal insufficiency, and atrial fibrillation diagnosed in July 2016. The patient having class 3 early class 4 symptoms of shortness of breath on exertion with easy fatigability. Her problem is progressively worsening over the last month and she is becoming more and more unable to do things. With that, she is having orthopnea, paroxysmal nocturnal dyspnea, swelling of the lower extremity, fatigability, and failure to thrive. She had cold-like illness, recently she was seen by Dr. Earl. Her condition continued to deteriorate. She went again to visit with him. She was in severe respiratory distress. She was sent to the emergency room, admitted, cardiac consultation is obtained. I visited the patient, and basically does have class 4 heart failure symptoms with orthopnea, paroxysmal nocturnal dyspnea, easy fatigability, palpitation, and no energy. Surprisingly, no angina. The patient to receive Lasix in the emergency room with some relief, but she is still quite a lot with shortness of breath. Her leg swelling is progressively worse as described above. REVIEW OF SYSTEMS: GENERAL: Failure to thrive, poor exercise tolerance, weight gain with swelling. SKIN: Diffuse itching and rashes all over scratch rosa. HEENT: Decreased hearing and decreased vision. PULMONARY AND CARDIAC: As per above in addition to cough. No pleuritic nor pericarditic chest pain. GI: Poor appetite, chronic constipation. HEMATOLOGY: Easy bruising and bleeding. : Increased frequency of urination and incontinence. No hematuria. No dysuria. MUSCULOSKELETAL: Back pain and difficulty walking. Peripheral vascular extreme edema. Legs cramp. NEUROLOGICAL: Good memory and speech. PSYCHIATRIC: No depression. PAST MEDICAL HISTORY: 1. Atrial fibrillation diagnosed in July 2016. 2. In 2011, she had calcified arteries, but no severe disease by cardiac cath. 3. Hypertension. 4. Diabetes mellitus. 5. Chronic renal insufficiency. 6. COPD. 7. Gout. 8. Macular degeneration on intra-ocular injection. 9. Osteoporosis. 10. Degenerative joint disease with radiculopathy. 11. Chronic swelling of the lower extremities. 12. Vitamin E deficiency. 13. Tonsillectomy. 14. Breast reduction surgery. 15. Appendectomy. 16. C6-C7 fusion. 17. Umbilical hernia surgery. 18. Pilonidal cyst surgery. SOCIAL HISTORY: She is a . She stopped smoking in 1987. She does not drink alcohol. FAMILY HISTORY: Father at age 75 with myocardial infarction. Mother of stroke at age 78. No brothers or sisters. No children. HOME MEDICATIONS: Include aspirin 81 mg a day, Eliquis 2.5 mg twice a day, Lipitor 40 mg a day, amiodarone 200 mg a day, Bumex 0.5 mg a day, propranolol HCL 20 mg twice a day, Farxiga 5 mg a day, Januvia 100 mg a day, Toujeo 8 units in the evening, Glimepiride 2 mg a day, Advair Diskus, Ellipta, omeprazole, sodium carbonate, calcium, vitamin D, and PreserVision. ALLERGIES: CODEINE CAUSING STOMACH UPSET. PHYSICAL EXAMINATION: VITAL SIGNS: Height of 5 feet 4 inches, weight of 200 pounds, blood pressure 160/90, heart rate of 60, irregularly irregular of atrial fibrillation. GENERAL: The patient acutely and chronically ill. SKIN: Bruises and skin abrasion noted. HEENT: Decreased vision. Decreased hearing. NECK: Elevation of jugular venous pulsation. No bruit. CHEST: Decreased air entry in bases with crackles. HEART: Irregularly irregular rate of atrial fibrillation with ejection systolic murmur. ABDOMEN: Soft with good bowel sounds. EXTREMITIES: Marked edema. Chronic skin changes of the lower extremities. NEUROLOGIC: Awake, alert. Gait, the patient uses a walker. LABORATORY DATA: Sodium of 142, potassium of 4.7, BUN of 81, creatinine of and 3.66. White blood cell count of 11.3, hemoglobin 10.5, hematocrit 33%, and platelet count of 204,000. PT 16.4 seconds, PTT 31 seconds, and INR of 1.26. EKG showing atrial fibrillation, low voltage, nonspecific ST changes. Chest x-ray by report showing pulmonary edema and cardiomegaly with small right pleural effusion. IMPRESSION AND PLAN: 1. Congestive heart failure. 2. Coronary artery disease. 3. Atrial fibrillation. 4. Chronic renal insufficiency. 5. Diabetes mellitus with severe end-organ damage. 6. Severe edema of the lower extremities. Cardiac-wesley, my recommendation is continuation of anticoagulation with Eliquis 2.5 mg twice a day, Lasix intravenously, be careful with the beta-reed because of the relatively slow heart rate. Observe volume status. Observe renal function. Continuation of Lipitor. Diabetes management as per Dr. Earl. We will repeat lab in a.m. We will observe the patient's progression with you and would like to thank you for the kind referral. The patient is seen and evaluated approximately at 6:00 p.m. Total time care of more than 50 minutes. MD DANY Corral/ALEXISL /[id number]
--- NOTE | 2019-01-14 01:16 | NUR ---
PATIENT IS ASLEEP, SHE'S EASY TO AROUSE. BEJARANO CATHETER PATENT AND INTACT, DRAINING WELL. OXYGEN @3L/NC, SHE DENIES SHORTNESS OF BREATH. NO PAIN VOICED, CALL LIGHT WITHIN EASY REACH.
--- NOTE | 2019-01-14 02:44 | NUR ---
WALKING ROUNDS MADE, PATIENT ADJUSTED IN BED FOR COMFORT. FEW ICE CHIPS GIVEN, NO RESPIRATORY DISTRESS OBSERVED. BED ALARM ON, CALL LIGHT WITHIN EASY REACH.
[2019-01-14 05:25] LABS: BASOPHILS % 0.1 % (0.0-1.0); HEMATOCRIT 30.9 % (34.2-44.1); HEMOGLOBIN 9.9 g/dL (12.0-16.0); LYMPHOCYTES % 12.2 % (18.0-39.1); MEAN CORPUSCULAR HEMOGLOBIN 27.8 pg (28-32); MEAN CORPUSCULAR VOLUME 86.8 fL (81-99); MONOCYTES # (AUTO) 0.2 (0.2-0.8); MONOCYTES % 2.5 % (4.4-11.3); NEUTROPHILS # (AUTO) 6.8 (2.1-6.9); NEUTROPHILS % 84.8 % (38.7-80.0); PLATELET COUNT 215 x10e3/uL (140-360); RED BLOOD COUNT 3.56 x10e6/uL (3.6-5.1); RED CELL DISTRIBUTION WIDTH 15.2 % (11.7-14.4)
[2019-01-14 05:49] LABS: CHOL/HDL RATIO 2.4 (3.0-3.6); CREATINE KINASE MB 3.2 ng/mL (0-5.0)
[2019-01-14 05:51] LABS: ALBUMIN 3.1 g/dL (3.5-5.0); ALBUMIN/GLOBULIN RATIO 0.9 (0.8-2.0); ANION GAP 19.4 mmol/L (8-16); CALCIUM 9.3 mg/dL (8.4-10.2); CREATININE, SERUM 3.37 mg/dL (0.57-1.11); POTASSIUM 4.4 mmol/L (3.5-5.1)
[2019-01-14 06:08] LABS: THYROID STIMULATING HORMONE 0.806 uIU/mL (0.350-4.940)
--- NOTE | 2019-01-14 06:48 | NUR ---
PATIENT CONDITION REMAINS STABLE WITHOUT DISTRESS, DR NIÑO SAW THE PATIENT THIS MORNING, NO NEW ORDERS RECEIVED.
--- NOTE | 2019-01-14 06:50 | Diagnostic Imaging Report ---
EXAMINATION: CHEST SINGLE (PORTABLE) INDICATION: Short of breath COMPARISON: Chest radiograph 01/13/2019 FINDINGS: AP view TUBES and LINES: None. LUNGS: Lungs are not well inflated. Hazy airspace opacity in the right upper lobe, worse compared to day prior.. There is mild prominence of the central pulmonary vasculature, consistent with pulmonary venous congestion. Slightly elevated right hemidiaphragm. PLEURA: No pleural effusion or pneumothorax. HEART AND MEDIASTINUM: Cardiac size is mildly enlarged. BONES AND SOFT TISSUES: No acute osseous lesion. Soft tissues are unremarkable. UPPER ABDOMEN: No free air under the diaphragm. IMPRESSION: Hazy airspace opacity in the right upper lobe may reflect pneumonia or atelectasis. Mild cardiomegaly and pulmonary vascular congestion. Low lung volumes. Signed by: Omega Barnard DO on 01/14/2019 6:46 AM
--- NOTE | 2019-01-14 07:09 | Progress Note ---
DATE: SUBJECTIVE: The patient admitted for acute congestive heart failure and also for COPD exacerbation. Currently, the patient has albuterol and Atrovent treatments, back on her CV medications which includes amiodarone, apixaban, atorvastatin, furosemide IV, and propranolol. The patient has no chest pain. Now shortness of breath is better, is able to sit up and lie down flat. No orthopnea noted. No PND and also pedal edema has decreased. OBJECTIVE: VITAL SIGNS: Temperature is 97.3, pulse of 84, respirations of 21, blood pressure is 124/76, and pulse oximetry of 98%. HEENT: Normocephalic and atraumatic. Pupils are reactive to light and accommodation. CVS: S1 and S2. Regular. ABDOMEN: Nontender and nondistended. EXTREMITIES: Positive for edema. SKIN: With excoriations also seen. LABORATORY VALUES: White count is 8.05, hemoglobin of 9.9, hematocrit 30.9, and platelet count is 215, 84.8 neutrophils. Chemistry; sodium 141, potassium 4.4, BUN is 79, creatinine of 3.37, estimated GFR of 13. The patient's hemoglobin A1c is 7.1. ALT and AST are elevated. BNP was 1311 from yesterday. LDL 68, TSH 0.806. ASSESSMENT: 1. Jjjlb-xz-ycdttzc congestive heart failure. 2. Chronic obstructive pulmonary disease exacerbation. 3. Acute chronic injury. 4. Hyperlipidemia. 5. Atrial fibrillation. 6. Hypertension. PLAN: Continue with IV diuresis. The patient's creatinine gotten little worse. Consult with Dr. Valles, who is on line. We will continue with her antihypertensive medications further recommendation per clinical course. The patient disposition is staying for one or two more days. Continue with Tai catheter for right now. For diabetes, we will continue with insulin sliding scale and her medications. Further recommendation per clinical course. We will continue to monitor the patient. MD ANUJ HaganJ/MODL /[id number]
[2019-01-14] MEDS: INSULIN REGULAR, HUMAN 100 UNIT/1 ML 3ML VIAL SQ SCH ×4 (07:30→20:30)
[2019-01-14] MEDS: FUROSEMIDE INJ 10 MG/ML 2 ML VIAL IV SCH ×2 (08:33→16:49)
[2019-01-14] MEDS: GLIMEPIRIDE 2 MG TAB PO SCH (08:33)
[2019-01-14] MEDS: PROPRANOLOL HCL 40 MG TAB PO SCH ×2 (08:34→16:49)
[2019-01-14] MEDS: TOUJEO SC SCH (08:34)
[2019-01-14] MEDS: SODIUM BICARBONATE 650 MG TAB PO SCH ×3 (08:34→21:12)
[2019-01-14] MEDS: CHOLECALCIFEROL 1,000 UNIT TAB PO SCH (08:34)
[2019-01-14] MEDS: APIXAB 2.5 MG TABLET PO SCH ×2 (08:34→16:49)
[2019-01-14] MEDS ORDERED: ASPIRIN 81 MG CHEW TAB PO SCH (09:00)
[2019-01-14] MEDS ORDERED: NON-FORMULARY MEDICATION ([Eliquis] 2.5 MG) PO SCH (09:00)
--- NOTE | 2019-01-14 14:59 | NUR ---
Nutrition Screen Note RD Recommendation for Physician: -Rec adding ADA 1600 to cardiac diet due to hx of diabetes Plan of Care: RD following, monitoring for tolerance and adequacy Nutrition reason for involvement: Diagnosis Primary Diagnose(s): 1. Fugmp-gm-gazxzaa congestive heart failure. 2. Chronic obstructive pulmonary disease exacerbation. PMH: HTN, HLD, DM, Afib, COPD, vitamin D deficiency Ht: 62in Wt: 200.25lb BMI: 36.6kg/m2 IBW: 110lb +/- 10% RD Assessment: (01/14) Chart reviewed. Labs and meds reviewed. 88yo F, who was admitted for CHF and COPD. Currently on diuretics and fluids restriction. HbA1c at 7.1%. Pt reported good appetite without any GI complains. LBM today. Pt denied any chewing or swallowing difficulty. Unknown weight hx due to fluid retention. Will continue to monitor and follow. Current Diet: cardiac diet Malnutrition Evaluation (01/14/2019) The patient does not meet criteria for a specified degree of malnutrition at this time. Will re-evaluate at follow-up as appropriate. Diet Education Needs Assessment: Diet education indicated, pt was agreeable. Briefly discussed the purpose of heart healthy diet. Nutrition Care Level: low Signed: Raven Morgan, MS, RD, LD
[2019-01-14] MEDS: CEFTRIAXONE SOD 1 GM/NS 50 ML 50 ML IV SCH (16:48)
--- NOTE | 2019-01-14 18:09 | Diagnostic Imaging Report ---
RENAL ULTRASOUND TECHNIQUE: Ultrasound evaluation of the KIDNEYS. Color Doppler evaluation was utilized to supplement the evaluation. HISTORY: Acute kidney injury COMPARISON: None available. DISCUSSION: RIGHT KIDNEY: The right kidney measures 9.1 cm in length. The cortex measures 0.9 cm in thickness. Parenchyma is within normal limits. No hydronephrosis or solid mass lesions. LEFT KIDNEY: The left kidney measures 9.1 cm in length. The cortex measures 0.7 cm in thickness. Parenchyma is within normal limits. No hydronephrosis or solid mass lesions. BLADDER: Decompressed via Tai catheter. IMPRESSION: 1. Bilateral renal cortical atrophy. 2. No hydronephrosis. Signed by: Dr. Den Bartholomew D.O., M.M.M. on 01/14/2019 6:06 PM
[2019-01-14] MEDS: METHYLPREDNISOLONE SOD SUCC 40 MG/ML VIAL 1ML IV SCH (21:12)
[2019-01-14] MEDS: ATORVASTATIN 40 MG TAB PO SCH (21:12)
[2019-01-14] MEDS: AMIODARONE HCL 200 MG TAB PO SCH (21:12)
--- NOTE | 2019-01-14 22:56 | Consultation ---
DATE OF CONSULTATION: 01/14/2019 HISTORY OF PRESENT ILLNESS: An 88-year-old female, who was admitted with shortness of breath and cough. Being treated for pneumonia and possible CHF, has existing history of chronic kidney disease stage 3, possibly 4, followed up in the office. Has underlying history of type 2 diabetes, hyperlipidemia, hypertension, congestive heart failure, history of atrial fibrillation, has been maintained on Eliquis, propranolol, glimepiride, Lasix, atorvastatin, aspirin, and amiodarone at home. Currently lying supine, in no apparent respiratory distress, but quite irritated about her cough. Denies fevers or chills. ALLERGIES: NO APPARENT DRUG ALLERGIES. CURRENT MEDICATIONS: The patient was on propranolol 20 mg p.o. b.i.d., sodium bicarbonate tablets 650 p.o. t.i.d., glimepiride 1 mg p.o. q.a.c., Lasix 60 mg IV twice a day, atorvastatin 40 mg at bedtime, aspirin 81 mg to chew, Eliquis 2.5 b.i.d., and amiodarone 200 mg p.o. at bedtime. SOCIAL HISTORY: Does not smoke or drink. FAMILY HISTORY: Significant for hypertension and diabetes. PAST HISTORY: As above. History of macular degeneration, GERD, as well as underlying COPD. She has had prior hiatus hernia surgery, appendectomy, and tonsillectomy. PHYSICAL EXAMINATION: GENERAL: Awake, alert, lying supine, in no apparent distress. VITAL SIGNS: Blood pressure 154/77, pulse rate 83, afebrile, oxygen saturation 98% on room air. HEAD AND NECK: Cornea clear. Mucosa moist. Neck veins flat. No JVD. LUNGS: Bronchial breath sounds noted left lower zone with scattered end-expiratory rhonchi. Occasional fine rales. HEART: S1, S2 audible. ABDOMEN: Otherwise soft and nontender. EXTREMITIES: Lower extremity examination shows 1 to 2+ edema. LABORATORY DATA: White count 9.9 with a hemoglobin 8.0. Labs done earlier today shows sodium 141, potassium 4.4, chloride 100, bicarbonate 26, BUN 79, and creatinine 3.37. IMPRESSION AND PLAN: Possible pneumonia. Underlying congestive heart failure. Agree with IV diuretics. We will obtain spot urine protein creatinine ratio. Apply knee-high PUSHPA hoses. Obtain kidney ultrasound, urinalysis, serum uric acid, urine protein creatinine ratio. A BNP level today. Recommend strict intake and output. Chest x-ray report noted. We will start her on IV antibiotics in the form of ceftriaxone and we will start her on Solu-Medrol as well. Obtain a BNP level. Discussed with the patient. Await clinic records. MD YNES Alcala/DELLA /[id number]
--- NOTE | 2019-01-14 23:34 | NUR ---
Assessment done.no resp.distress.no pain voiced.gonzalez care given.repositioned.aaox3.bed locked and in lowest position.phone and call light within reach.instructed to call for assistance as needed.
[2019-01-15] VITALS (8 sets, daily range): BP systolic 119–139; BP diastolic 62–78
--- NOTE | 2019-01-15 02:32 | NUR ---
Urine collected from gonzalez port in a aseptic technique and sent to the lab.
[2019-01-15 02:52] LABS: RBC,URINE >50 /HPF (0-5)
[2019-01-15 02:53] LABS: BACTERIA,URINE MANY /HPF; BILIRUBIN,URINE NEGATIVE (NEGATIVE); CLARITY,URINE CLOUDY (CLEAR); COLOR,URINE RED (YELLOW); EPITHELIAL CELLS,URINE FEW /LPF; KETONES,URINE NEGATIVE (NEGATIVE); LEUKOCYTE ESTERASE ,URINE TRACE (NEGATIVE); NITRITE,URINE NEGATIVE (NEGATIVE); PROTEIN,URINE DIPSTICK 2+ (NEGATIVE); URINE UROBILINOGEN 0.2 mg/dL (0.2 - 1)
[2019-01-15 03:01] LABS: CREATININE,URINE RANDOM 70.01 mg/dL (47-110); TOTAL PROTEIN, URINE 80.1 mg/dL (1-14)
--- NOTE | 2019-01-15 04:57 | NUR ---
Had small amount of bowel movement in using bed side commode.cleansed and back to bed safely.
[2019-01-15 06:19] LABS: ALBUMIN 3.2 g/dL (3.5-5.0); CALCIUM 9.4 mg/dL (8.4-10.2); CREATININE, SERUM 3.23 mg/dL (0.57-1.11)
--- NOTE | 2019-01-15 07:08 | NUR ---
Bed side shift report given to the oncoming rn.stable condition.
[2019-01-15 07:15] LABS: BASOPHILS % 0.1 % (0.0-1.0); HEMATOCRIT 31.1 % (34.2-44.1); HEMOGLOBIN 9.9 g/dL (12.0-16.0); LYMPHOCYTES # (AUTO) 0.9 (1.0-3.2); LYMPHOCYTES % 6.9 % (18.0-39.1); MEAN CORPUSCULAR HEMOGLOBIN 27.9 pg (28-32); MEAN CORPUSCULAR HGB CONC 31.8 g/dL (31-35); MEAN CORPUSCULAR VOLUME 87.6 fL (81-99); MONOCYTES # (AUTO) 0.4 (0.2-0.8); MONOCYTES % 3.4 % (4.4-11.3); NEUTROPHILS # (AUTO) 11.2 (2.1-6.9); NEUTROPHILS % 89.2 % (38.7-80.0); PLATELET COUNT 196 x10e3/uL (140-360); RED BLOOD COUNT 3.55 x10e6/uL (3.6-5.1); RED CELL DISTRIBUTION WIDTH 15.3 % (11.7-14.4)
[2019-01-15 08:03] LABS: BAND NEUTROPHILS % (MANUAL) 3 %; EOSINOPHILS % (MANUAL) 1 % (0-7); LYMPHOCYTES % (MANUAL) 7 % (19-48); MONOCYTES % (MANUAL) 6 % (3.4-9.0); NEUTROPHILS % (MANUAL) 83 % (40-74); PLATELET ESTIMATE ADEQUATE
[2019-01-15 08:05] LABS: ANISOCYTOSIS MODERATE; POIKILOCYTOSIS SLIGHT
[2019-01-15] MEDS: TOUJEO SC SCH (08:05)
[2019-01-15 08:06] LABS: PLATELET MORPHOLOGY COMMENT FEW LARGE; RBC MORPHOLOGY COMMENT ABNORMAL
[2019-01-15] MEDS: INSULIN REGULAR, HUMAN 100 UNIT/1 ML 3ML VIAL SQ SCH ×4 (08:12→21:12)
[2019-01-15] MEDS: FUROSEMIDE INJ 10 MG/ML 2 ML VIAL IV SCH (08:17)
[2019-01-15] MEDS: METHYLPREDNISOLONE SOD SUCC 40 MG/ML VIAL 1ML IV SCH ×2 (08:17→21:11)
[2019-01-15] MEDS: APIXAB 2.5 MG TABLET PO SCH ×2 (08:17→17:00)
[2019-01-15] MEDS: GLIMEPIRIDE 2 MG TAB PO SCH (08:17)
[2019-01-15] MEDS: SODIUM BICARBONATE 650 MG TAB PO SCH ×2 (08:18→15:59)
[2019-01-15] MEDS: CHOLECALCIFEROL 1,000 UNIT TAB PO SCH (08:18)
[2019-01-15] MEDS: PROPRANOLOL HCL 40 MG TAB PO SCH ×2 (08:18→17:00)
[2019-01-15] MEDS ORDERED: GUAIFENESIN 200 MG/10 ML UDC PO PRN (09:00)
[2019-01-15] MEDS: AZITHROMYCIN 250MG/NS 100 ML 100 ML IV SCH (09:05)
--- NOTE | 2019-01-15 09:47 | Progress Note ---
DATE: SUBJECTIVE: The patient is an 88-year-old female, who comes in with acute on chronic congestive heart failure, possible pneumonia, cough, congestion, and also debility. The patient also was found to have increase in creatinine with ENRIQUETA. Currently still coughing and still congested, started with some cough medication today. MEDICATIONS: She is on, 1. Albuterol. 2. Amiodarone. 3. Apixaban. 4. Aspirin. 5. Atorvastatin. 6. Rocephin. 7. Furosemide. 8. Methylprednisone. 9. Propranolol. 10. Sodium bicarbonate. OBJECTIVE: VITAL SIGNS: Temperature is 96.7, pulse of 72, respirations of 20, blood pressure is 129/62, pulse oximetry of 99% on 2 L of oxygen. HEENT: Normocephalic and atraumatic. Pupils are reactive to light and accommodation. CVS: S1 and S2. Irregular. LUNGS: Positive for rhonchi in the right side. Positive for crackles, bilateral bases. EXTREMITIES: No clubbing, no cyanosis. Positive for edema. ABDOMEN: Nontender. LABORATORY VALUES: White count was 8.05. Chemistry show sodium of 142, BUN of 195, creatinine of 3.23, glucose of 223, and BNP is pending today. Lipids are normal. ASSESSMENT: 1. Acute on chronic congestive heart failure. 2. Chronic obstructive pulmonary disease exacerbation with possible pneumonia. 3. Acute on chronic injury on chronic kidney injury. 4. Hyperlipidemia. 5. Atrial fibrillation. 6. Hypertension. 7. Debility. 8. Obesity. PLAN: Continue with IV diuresis. The patient has been started on Solu-Medrol and Rocephin. We will add azithromycin to the regimen and we will continue monitoring the patient's strict I's and O's and also low-salt diet. Continue with CV medications. Continue with diuresis and adjust medication for renal failure. Further recommendation per clinical course. We will continue to monitor the patient. Gage Earl MD ASJ/MODL /[id number]
[2019-01-15] MEDS: CEFTRIAXONE SOD 1 GM/NS 50 ML 50 ML IV SCH (15:59)
[2019-01-15] MEDS: BUMETANIDE 1 MG TAB PO SCH (18:15)
[2019-01-15] MEDS: ATORVASTATIN 40 MG TAB PO SCH (21:11)
[2019-01-15] MEDS: AMIODARONE HCL 200 MG TAB PO SCH (21:11)
--- NOTE | 2019-01-15 22:43 | NUR ---
Assessment done.no resp.distress.no pain voiced.gonzalez care given.rodrigez colored urine draining.left fore arm iv patent.bed locked and in lowest position.phone and call light within n reach.instructed to call for assistance as needed.
[2019-01-16] VITALS (7 sets, daily range): BP systolic 110–155; BP diastolic 65–88
[2019-01-16] MEDS: ALBUTEROL/IPRATROPIUM 3 ML NEB NEB SCH ×4 (03:11→19:58)
[2019-01-16 05:41] LABS: HEMATOCRIT 31.6 % (34.2-44.1); HEMOGLOBIN 10.1 g/dL (12.0-16.0); LYMPHOCYTES # (AUTO) 0.7 (1.0-3.2); LYMPHOCYTES % 5.8 % (18.0-39.1); MEAN CORPUSCULAR HEMOGLOBIN 27.2 pg (28-32); MEAN CORPUSCULAR VOLUME 84.9 fL (81-99); MONOCYTES # (AUTO) 0.6 (0.2-0.8); NEUTROPHILS # (AUTO) 10.4 (2.1-6.9); NEUTROPHILS % 88.4 % (38.7-80.0); PLATELET COUNT 186 x10e3/uL (140-360); RED BLOOD COUNT 3.72 x10e6/uL (3.6-5.1); RED CELL DISTRIBUTION WIDTH 15.2 % (11.7-14.4)
[2019-01-16 06:11] LABS: ALBUMIN 3.2 g/dL (3.5-5.0); ANION GAP 19.4 mmol/L (8-16); CALCIUM 9.1 mg/dL (8.4-10.2); CREATININE, SERUM 2.88 mg/dL (0.57-1.11); POTASSIUM 4.4 mmol/L (3.5-5.1)
--- NOTE | 2019-01-16 06:41 | NUR ---
Tai d/c and pt is due to void.
--- NOTE | 2019-01-16 07:04 | Progress Note ---
DATE: SUBJECTIVE: The patient admitted to the hospital for CHF exacerbation, COPD exacerbation, acute renal failure, asymptomatic except for hematuria seen in the Tai catheter. Currently, no chest pains, no shortness of breath, and no nausea, vomiting, or diarrhea. Tolerating feeds and blood sugars are running in the 200s to 250s. OBJECTIVE: VITAL SIGNS: Temperature 96.9, pulse 82, respirations of 19, blood pressure is 140/76, pulse oximetry of 96%. HEENT: Normocephalic, atraumatic. Pupils are reactive to light and accommodation. CVS: S1 and S2 normal. Irregularly irregular. ABDOMEN: Nontender, nondistended. EXTREMITIES: No clubbing. No cyanosis. Positive for edema. LABORATORY VALUES: Creatinine is 2.88, BUN of 93, glucose of 171. Liver enzymes within normal limits. Hematology; white count is down to 11.78, hemoglobin of 10.1, hematocrit of 31.6, slight left shift present, neutrophil count of 10.4. Coags normal. IMAGING STUDIES: From the shows a little bit of atelectasis versus pneumonia. ASSESSMENT: 1. Svntp-rc-gqikyym congestive heart failure. 2. Chronic obstructive pulmonary disease exacerbation with possible pneumonia. 3. Jcxtx-fg-ijkzacz kidney injury. 4. Hyperlipidemia. 5. Debility. 6. Obesity. 7. Hypertension. PLAN: Continue with Solu-Medrol, added azithromycin and Rocephin for pneumonia coverage. The patient's creatinine is improving. For the hematuria, we will remove the Tai catheter right now. Continue monitoring the patient. Strict I's and O's and also low-salt diet. Further recommendation per clinical course. We will continue to monitor the patient along with consultants. Physical Therapy and Rehabilitation consult was done yesterday. The patient could not walk without assistance, therefore a SNF consult has been ordered. The patient can be transferred to SNF when bed available and switch IV diuresis to p.o. diuresis. MD GLORIA Hagan/ALEXISL /[id number]
--- NOTE | 2019-01-16 07:17 | NUR ---
bed side shift report given to the oncoming rn.stable condition.
[2019-01-16] MEDS: GLIMEPIRIDE 2 MG TAB PO SCH (07:30)
[2019-01-16] MEDS: INSULIN REGULAR, HUMAN 100 UNIT/1 ML 3ML VIAL SQ SCH ×4 (07:30→21:30)
[2019-01-16] MEDS: AZITHROMYCIN 250MG/NS 100 ML 100 ML IV SCH (08:00)
--- NOTE | 2019-01-16 08:03 | NUR ---
Received patient this morning and a/ox3, rounds completed and no resp distress, call light within reach, bed in low locked position, will monitor.
[2019-01-16] MEDS: TOUJEO SC SCH (09:00)
[2019-01-16] MEDS: BUMETANIDE 1 MG TAB PO SCH ×2 (09:06→17:29)
[2019-01-16] MEDS: METHYLPREDNISOLONE SOD SUCC 40 MG/ML VIAL 1ML IV SCH ×2 (09:06→21:30)
[2019-01-16] MEDS: PROPRANOLOL HCL 40 MG TAB PO SCH ×2 (09:07→17:29)
[2019-01-16] MEDS: CHOLECALCIFEROL 1,000 UNIT TAB PO SCH (09:07)
[2019-01-16] MEDS: APIXAB 2.5 MG TABLET PO SCH ×2 (09:12→17:29)
--- NOTE | 2019-01-16 14:21 | NUR ---
SPOKE WITH PT ABOUT SNF ORDER SIGNED CHOICE FOR [facility], EDUCATED ABOUT [facility], SIGNED, FILED IN CHART, WITH COPY LEFT WITH FAMILY AT BEDSIDE. FAXED CLINICALS TO FACILITY COMPLETED RTF AND PASRR TO PUT IN CHART AND PACKET TO BE READY FOR WHEN GET AUTH.
--- NOTE | 2019-01-16 14:40 | NUR ---
PATIENT PENDING AUTH FOR NURSING HOME FACILITY PLACEMENT: [facility] [id number], [place] [address] BABAK JACOBO ON CASE
[2019-01-16] MEDS: CEFTRIAXONE SOD 1 GM/NS 50 ML 50 ML IV SCH (16:15)
--- NOTE | 2019-01-16 18:41 | NUR ---
Patient alert and responsive, OOB and ambulated with PT, voiding well, small BM today, IV abx running as ordered, no adverse effects, Blood sugars managed with insulin, call light within reach, will monitor.
--- NOTE | 2019-01-16 19:03 | NUR ---
WALKING ROUNDS PERFORMED, RECEIVED PT LAYING SEMI FOWLERS IN BED, AAOX3, RR EVEN AND NON-LABORED, O2 BY NC AT 2L. NO S/SX OF DISTRESS NOTED. LEFT PT LAYING SEMI FOWLERS IN BED, BED IN LOW LOCKED POSITION, SIDE RAILS UPX2, CALL LIGHT AND PHONE WITHIN REACH.
[2019-01-16] MEDS: AMIODARONE HCL 200 MG TAB PO SCH (21:30)
[2019-01-16] MEDS: INSULIN GLARGINE 100 UNITS/ML VIAL SQ SCH (21:30)
[2019-01-16] MEDS: ATORVASTATIN 40 MG TAB PO SCH (21:30)
[2019-01-17] VITALS (8 sets, daily range): BP systolic 116–151; BP diastolic 59–79
[2019-01-17] MEDS: ALBUTEROL/IPRATROPIUM 3 ML NEB NEB SCH ×4 (00:31→19:50)
[2019-01-17 06:52] LABS: CALCIUM 8.7 mg/dL (8.4-10.2); CREATININE, SERUM 3.01 mg/dL (0.57-1.11)
[2019-01-17 06:56] LABS: BASOPHILS % 0.1 % (0.0-1.0); HEMATOCRIT 30.7 % (34.2-44.1); HEMOGLOBIN 9.6 g/dL (12.0-16.0); LYMPHOCYTES # (AUTO) 0.5 (1.0-3.2); LYMPHOCYTES % 4.7 % (18.0-39.1); MEAN CORPUSCULAR HEMOGLOBIN 27.4 pg (28-32); MEAN CORPUSCULAR HGB CONC 31.3 g/dL (31-35); MEAN CORPUSCULAR VOLUME 87.7 fL (81-99); MONOCYTES # (AUTO) 0.7 (0.2-0.8); MONOCYTES % 6.1 % (4.4-11.3); NEUTROPHILS % 88.4 % (38.7-80.0); PLATELET COUNT 166 x10e3/uL (140-360); RED CELL DISTRIBUTION WIDTH 15.1 % (11.7-14.4)
[2019-01-17] MEDS: INSULIN REGULAR, HUMAN 100 UNIT/1 ML 3ML VIAL SQ SCH ×4 (07:30→20:49)
[2019-01-17] MEDS: GLIMEPIRIDE 2 MG TAB PO SCH (07:30)
[2019-01-17] MEDS: AZITHROMYCIN 250MG/NS 100 ML 100 ML IV SCH (08:00)
[2019-01-17] MEDS: TOUJEO SC SCH (09:00)
[2019-01-17] MEDS: APIXAB 2.5 MG TABLET PO SCH ×2 (09:10→17:04)
[2019-01-17] MEDS: BUMETANIDE 1 MG TAB PO SCH ×2 (09:10→17:04)
[2019-01-17] MEDS: METHYLPREDNISOLONE SOD SUCC 40 MG/ML VIAL 1ML IV SCH ×2 (09:10→20:49)
[2019-01-17] MEDS: PROPRANOLOL HCL 40 MG TAB PO SCH ×2 (09:11→17:00)
[2019-01-17] MEDS: CHOLECALCIFEROL 1,000 UNIT TAB PO SCH (09:14)
[2019-01-17 11:07] LABS: LYMPHOCYTES % (MANUAL) 7 % (19-48); MONOCYTES % (MANUAL) 7 % (3.4-9.0); NEUTROPHILS % (MANUAL) 86 % (40-74)
[2019-01-17 11:08] LABS: HYPOCHROMASIA SLIGHT
[2019-01-17 11:09] LABS: PLATELET ESTIMATE ADEQUATE; PLATELET MORPHOLOGY COMMENT NORMAL
--- NOTE | 2019-01-17 12:25 | NUR ---
CLARK ALVES FROM [facility] FOR UPDATE, STILL WAITING ON AUTH.
[2019-01-17] MEDS: CEFTRIAXONE SOD 1 GM/NS 50 ML 50 ML IV SCH (16:15)
[2019-01-17] MEDS: INSULIN GLARGINE 100 UNITS/ML VIAL SQ SCH (20:49)
[2019-01-17] MEDS: ATORVASTATIN 40 MG TAB PO SCH (20:49)
[2019-01-17] MEDS: AMIODARONE HCL 200 MG TAB PO SCH (20:49)
[2019-01-18] VITALS (8 sets, daily range): BP systolic 136–156; BP diastolic 63–85
[2019-01-18] MEDS: ALBUTEROL/IPRATROPIUM 3 ML NEB NEB SCH ×4 (01:00→19:10)
[2019-01-18] MEDS: GLIMEPIRIDE 2 MG TAB PO SCH (07:30)
[2019-01-18] MEDS: INSULIN REGULAR, HUMAN 100 UNIT/1 ML 3ML VIAL SQ SCH ×4 (07:30→21:03)
[2019-01-18] MEDS: CHOLECALCIFEROL 1,000 UNIT TAB PO SCH (08:18)
[2019-01-18] MEDS: METHYLPREDNISOLONE SOD SUCC 40 MG/ML VIAL 1ML IV SCH ×2 (08:18→21:03)
[2019-01-18] MEDS: APIXAB 2.5 MG TABLET PO SCH ×2 (08:18→17:42)
[2019-01-18] MEDS: PROPRANOLOL HCL 40 MG TAB PO SCH ×2 (08:18→17:42)
[2019-01-18] MEDS: BUMETANIDE 1 MG TAB PO SCH ×2 (08:18→17:42)
[2019-01-18] MEDS: TOUJEO SC SCH (08:19)
--- NOTE | 2019-01-18 08:43 | NUR ---
Received patient this morning, a/ox3, blood sugar low and snacks offered to patient. Tolerated well, no resp distress but some SOB with exertion, BLE edema, continues on diuretics, will monitor.
--- NOTE | 2019-01-18 14:48 | Progress Note ---
DATE: 01/18/2019 CHIEF COMPLAINT: The patient is weak. She claims of some seeping from the right leg. She is having less dyspnea. There is no chest pain. REVIEW OF SYSTEMS: Mainly are debility, weakness. No angina. No orthopnea. No paroxysmal nocturnal dyspnea. Gait is very abnormal. She needs assistance in her movement. She is better from the day of admission definitely with the treatment. PHYSICAL EXAMINATION: VITAL SIGNS: Blood pressure 130/70, heart rate of 80, respiratory rate of 18, temperature of 95 Fahrenheit. HEENT: Pupils are reactive. NECK: No elevation of jugular venous pulsation. CHEST: Decreased air entry in bases. HEART: PMI 5th left intercostal space. Normal first and second heart sounds with soft ejection systolic murmur. ABDOMEN: Soft with good bowel sounds. EXTREMITIES: Discoloration. Minimal edema changes noted in the lower extremities. NEUROLOGIC: Weakness. Able to move extremities. She is slow, but she is nonfocal. Other finding: The patient looks chronically ill. CARDIAC MEDICATIONS: 1. Bumex 2 mg twice a day. 2. Apixaban 2.5 mg twice a day. 3. Amiodarone 200 mg a day. 4. Atorvastatin 40 mg a day. 5. The patient is on glimepiride and methylprednisolone. 6. She is on insulin. 7. She is on ceftriaxone. 8. She is on azithromycin. 9. She is on nebulizer. LAB DATA: No lab today. IMPRESSION AND PLAN: 1. Acute on chronic congestive heart failure. The patient is improving and progressing nicely. 2. Chronic renal insufficiency, class IV. 3. Paroxysmal atrial fibrillation. 4. Diabetes mellitus. 5. Chronic obstructive pulmonary disease. 6. Debility. 7. Chronic anemia. PLAN: Continue same medication. Checking lab for tomorrow, mainly renal function. Prognosis is guarded. MD DANY Corral/DELLA /[id number]
[2019-01-18] MEDS: CEFTRIAXONE SOD 1 GM/NS 50 ML 50 ML IV SCH (16:15)
--- NOTE | 2019-01-18 18:04 | NUR ---
Patient alert and responsive, some c/o cough, reported to scallop binder and no orders, continues on diuretics, OOB and ambulating with R/W and call light within reach, will monitor.
[2019-01-18] MEDS: AMIODARONE HCL 200 MG TAB PO SCH (21:03)
[2019-01-18] MEDS: INSULIN GLARGINE 100 UNITS/ML VIAL SQ SCH (21:03)
[2019-01-18] MEDS: ATORVASTATIN 40 MG TAB PO SCH (21:03)
[2019-01-19 00:51] VITALS: BP 124/74
[2019-01-19] MEDS: ALBUTEROL/IPRATROPIUM 3 ML NEB NEB SCH ×3 (01:00→13:28)
[2019-01-19 04:25] VITALS: BP 129/95
[2019-01-19 05:47] LABS: BASOPHILS % 0.1 % (0.0-1.0); HEMATOCRIT 31.2 % (34.2-44.1); HEMOGLOBIN 9.9 g/dL (12.0-16.0); LYMPHOCYTES # (AUTO) 0.5 (1.0-3.2); LYMPHOCYTES % 4.5 % (18.0-39.1); MEAN CORPUSCULAR HEMOGLOBIN 27.3 pg (28-32); MEAN CORPUSCULAR HGB CONC 31.7 g/dL (31-35); MONOCYTES # (AUTO) 0.7 (0.2-0.8); MONOCYTES % 6.3 % (4.4-11.3); NEUTROPHILS % 88.5 % (38.7-80.0); PLATELET COUNT 151 x10e3/uL (140-360); RED BLOOD COUNT 3.63 x10e6/uL (3.6-5.1); RED CELL DISTRIBUTION WIDTH 15.1 % (11.7-14.4)
[2019-01-19 06:08] LABS: LYMPHOCYTES % (MANUAL) 7 % (19-48); MONOCYTES % (MANUAL) 6 % (3.4-9.0); NEUTROPHILS % (MANUAL) 87 % (40-74)
[2019-01-19 06:09] LABS: ANISOCYTOSIS S; PLATELET ESTIMATE ADEQUATE; PLATELET MORPHOLOGY COMMENT NORMAL; POIKILOCYTOSIS S; RBC MORPHOLOGY COMMENT NORMAL
[2019-01-19 06:12] LABS: ALBUMIN 3.2 g/dL (3.5-5.0); ANION GAP 19.1 mmol/L (8-16); CALCIUM 8.6 mg/dL (8.4-10.2); CREATININE, SERUM 2.67 mg/dL (0.57-1.11); POTASSIUM 4.1 mmol/L (3.5-5.1)
--- NOTE | 2019-01-19 07:17 | NUR ---
Rcvd patient in report this am. Patient is asleep in bed at this time. No s/s of distress noted
[2019-01-19 07:45] VITALS: BP 141/74
[2019-01-19] MEDS: APIXAB 2.5 MG TABLET PO SCH (08:09)
[2019-01-19] MEDS: METHYLPREDNISOLONE SOD SUCC 40 MG/ML VIAL 1ML IV SCH (08:09)
[2019-01-19] MEDS: GLIMEPIRIDE 2 MG TAB PO SCH (08:09)
[2019-01-19] MEDS: CHOLECALCIFEROL 1,000 UNIT TAB PO SCH (08:09)
[2019-01-19] MEDS: BUMETANIDE 1 MG TAB PO SCH (08:09)
[2019-01-19] MEDS: PROPRANOLOL HCL 40 MG TAB PO SCH (08:09)
[2019-01-19] MEDS: INSULIN REGULAR, HUMAN 100 UNIT/1 ML 3ML VIAL SQ SCH ×2 (08:21→12:21)
[2019-01-19] MEDS: TOUJEO SC SCH (08:22)
--- NOTE | 2019-01-19 09:30 | NUR ---
Patient is AAOx3. PAtient ambulates with assistance and walker. Lung cota diminished to auscultation. Some shortness of breath noted at times. O2 at 2L NC. Bowel sounds present x4. 2+ pitting edema to BLE. Bruising noted to upper extremities. Left forearm IV in place. No c/o pain at this time.
--- NOTE | 2019-01-19 09:53 | NUR ---
[facility] WITH [facility] STATES SHE NEVER REC'D CLINICAL JJ COMING TO [facility] NOW
--- NOTE | 2019-01-19 10:34 | Progress Note ---
DATE: SUBJECTIVE: The patient is an 88-year-old female comes in with acute congestive heart failure and also acute exacerbation of COPD and acute renal failure. The patient is currently asymptomatic. Tai has been removed. No chest pain. No shortness of breath on exertion. Also, extremely tired and fatigued when getting up. The patient has been evaluated by Physical Therapy and SNF is needed. OBJECTIVE: VITAL SIGNS: Temperature is 96.6, pulse of 91, respirations of 18, blood pressure is 129/95, pulse oximetry of 97%. HEENT: Normocephalic, atraumatic. Pupils are reactive to light and accommodation. CVS: S1, S2 irregular. Ejection systolic murmur present. ABDOMEN: Nontender, nondistended. EXTREMITIES: Positive for trace edema. LABORATORY VALUES: Today's white count is 11.3. Chemistries show a sodium of 140, potassium of 4.1, BUN of 94, creatinine of 2.67 and coags were normal. MICROBIOLOGY: Urine culture is no growth. Blood cultures have been negative so far. ASSESSMENT: 1. Acute on chronic congestive heart failure. 2. Debility. 3. Paroxysmal atrial fibrillation. 4. Chronic renal insufficiency, stage IV. 5. Uncontrolled diabetes mellitus. 6. Chronic obstructive pulmonary disease. 7. History of anemia. PLAN: The patient is currently going to transfer to SNF. We will continue with diuresis there, daily in's and out's and also daily weights will be monitored. Labs will be checked on a weekly basis at rehab for further recommendation and clinical course and physical therapy and occupational therapy has been ordered. The patient is pending transfer to SNF and when the bed is available, the patient can be transferred. DISCHARGE MEDICATIONS: Bumex 2 mg, steroids 20 mg IV q.12 hours, insulin glargine 10 units daily, atorvastatin 40 mg, amiodarone 200 mg, propranolol 20 mg twice a day, Eliquis 2.5 mg twice a day, glimepiride 1 mg and albuterol and Atrovent as needed. Further recommendation, look in the chart. The patient will be discharged on acceptance. MD GLORIA Hagan/DELLA /[id number]
[2019-01-19 11:59] VITALS: BP_SYST 137; BP_SYST 141; BP_DIAS 65; BP_DIAS 74
--- NOTE | 2019-01-19 12:57 | NUR ---
REC'D MOT FROM [facility] ROOM [address] Amanda RUIZ NURSE AWARE
--- NOTE | 2019-01-19 12:58 | NUR ---
IMM EXPLAINED TO PT, SIGNED BY PT AND PLACED IN CHART COPY TO PT
--- NOTE | 2019-01-19 14:10 | NUR ---
Report called to [facility] at [facility].
--- NOTE | 2019-01-19 14:30 | NUR ---
Removed IV at this time from left forearm. Pressure dressing applied.
[2019-01-19 15:52] VITALS: BP 126/74
--- NOTE | 2019-01-19 17:07 | NUR ---
Patient discharged to [facility] at this time. Patient transported via [facility]. No IV access. Report was called earlier to Mina. NO s/s of distress noted
== END 2019-01-19 17:07 | DRG 291 ==
LOC: ER 12:36 → ERHOLD 13:51 → MED/SURG 15:23
PROVIDERS: ADMIT Family Medicine; ATTEND Family Medicine
DX: I13.0 Hypertensive heart and chronic kidney disease with heart failure and stage 1 through stage 4 chronic kidney disease, or unspecified chronic kidney disease (principal); I50.23 Acute on chronic systolic (congestive) heart failure; J44.1 Chronic obstructive pulmonary disease with (acute) exacerbation; N17.9 Acute kidney failure, unspecified; N18.4 Chronic kidney disease, stage 4 (severe); E87.5 Hyperkalemia; I48.91 Unspecified atrial fibrillation; E11.29 Type 2 diabetes mellitus with other diabetic kidney complication; M81.0 Age-related osteoporosis without current pathological fracture; M10.9 Gout, unspecified; E11.22 Type 2 diabetes mellitus with diabetic chronic kidney disease
CPT/HCPCS: 36415; 36600; 71045; 76770; 80048; 80053; 80061; 81001; 82550; 82553; 82570; 82805; 82948; 83036; 83605; 83690; 83735; 83880; 84156; 84443; 84484; 84550; 85025; 85610; 85730; 87040; 87086; 93005; 93306; 94640; 96372; 97139; 99285; J0696; J1815; J1817; J1940; J2920; J2930

== ENCOUNTER 2019-02-05 17:46 | Inpatient (IN) | payer MEDICARE ==
[~2019-02-05] VITALS: Ht 157.5 cm; Wt 94.8 kg
[~2019-02-05 17:46] MED LIST changes: +FUROSEMIDE40 MG PO
--- OUTSIDE RECORDS SUMMARY | 2019-02-05 17:50 | XMS REPORT | Continuity of Care Document ---
Author Author [facility] YASSSU Organization [facility] [employer] Information [place] Address Unknown Phone Unavailable Care Team Providers Care Assistant Teaching Professor Name Role Phone [facility] [employer] Information [place] Unavailable Unavailable Problems Problem Status Onset Date Classification Date Reported Comments Source CHF Active Problem 09/26/2017 [facility] Cellulitis of left lower extremity without foot Active Problem 01/19/2019 [facility] Pulmonary edema Active Problem 01/19/2019 [facility] Anemia Active Problem 01/19/2019 [facility] Congestive heart failure Active Problem 01/19/2019 [facility] Edema Active Problem 01/19/2019 [facility] Acute renal failure superimposed on chronic kidney disease Active Problem 01/19/2019 [facility] Vitamin D deficiency Active Problem 12/11/2018 Carlos Enrique Fletcher Long-term use of high-risk medication Active Diagnosis 12/11/2018 Carlos Enrique Fletcher Neutrophilic leukocytosis Active Problem 12/11/2018 Carlos Enrique Fletcher Age related osteoporosis Active Diagnosis 12/11/2018 Carlos Enrique Fletcher Primary osteoarthritis involving multiple joints Active Problem 12/11/2018 Carlos Enrique Christensener Finger pain, right Active Problem 12/11/2018 Carlos Enrique Fletcher Pain in right knee Active Problem 12/11/2018 Carlos Enrique Christensener Non morbid obesity due to excess calories [...] with unspecified complications Active Diagnosis 11/14/2018 Ham[place] Gumzán Hypercholesterolemia Active Diagnosis 11/14/2018 [place] Guzmán Chronic [...] Active Problem 11/14/2018 [place] Guzmán Atherosclerosis of [place] coronary artery of [place] heart with angina pectoris Active Problem 11/14/2018 [place] Guzmán Atherosclerosis of [place] coronary artery of [place] heart without angina pectoris Active Problem 11/14/2018 [...] Active Problem 01/28/2014 [place] Guzmán Atherosclerosis of [place] arteries of the extremities with intermittent claudication Active Problem 01/28/2014 [place] Guzmán Angina Active Problem 01/28/2014 [place] Guzmán Medications Medication Details Route Status Patient Instructions Ordering Provider Order Date Source Albuterol Sulfate (Proair Hfa Inhaler*) 8.5 Gm Inh, 108 Mcg Inhalation As Needed Active 01/13/2019 [facility] Bumetanide 1 Mg Tablet, 0.5 Mg Oral Daily Active 01/13/2019 [facility] Farxiga , 5 Mg Oral Daily Active 01/13/2019 [facility] OrthoVisc 2 ml in the R) knee Intra-articular Active 30 MG/2ML Intra-articular Once a week for three weeks [place] 11/03/2018 Carlos Enrique Fletcher OrthoVisc 2 ml in R knee Intra- articular Active 30 MG/2ML Intra- articular every 6 months [place] 10/17/2018 Carlos Enrique Fletcher Albuterol Sulfate (Proair Hfa Inhaler*) 8.5 Gm Inh As Needed Active [facility] Amiodarone Hcl 200 Mg Tablet Bedtime Active [facility] Aspirin (Aspir 81) 81 Mg Tablet. Daily Active [facility] Atorvastatin Calcium 20 Mg Tablet Bedtime Active [facility] Bumetanide 1 Mg Tablet Daily Active [facility] Calcium Twice A Day Active [facility] Cholecalciferol (Vitamin D3) (Vitamin D) 1,000 Unit Tablet Daily Active [facility] Eliquis Twice A Day Active [facility] Farxiga Daily Active [facility] Glimepiride 2 Mg Tablet Daily Active [facility] Propranolol Hcl 40 Mg Tablet Twice A Day Active [facility] Sodium Bicarbonate 650 Mg Tablet Twice A Day Active [facility] Toaydin [place] Daily Active [facility] Vit A/Vit C/Vit E/Zinc/Copper (Preservision Areds Softgel) 1 Each Capsule Twice A Day Active [facility] Amiodarone Hcl 200 Mg Tablet Bedtime Active [facility] Aspirin (Aspir 81) 81 Mg Tablet. Daily Active [facility] Atorvastatin Calcium 20 Mg Tablet Bedtime Active [facility] Furosemide 40 Mg Tablet Daily Active [facility] Glimepiride 2 Mg Tablet Daily Active [facility] Propranolol Hcl 40 Mg Tablet Twice A Day Active [facility] Sodium Bicarbonate 650 Mg Tablet Three Times A Day Active [facility] ProAir HFA 2 puffs as needed Inhalation Active 108 (90 Base) MCG/ACT Inhalation every 4 hrs Leyvamaria eugenia Fletcher Sodium Bicarbonate 3 tablets Orally Active 650 MG Orally twice a day [place] Carlos Enrique Fletcher Bumetanide as directed Orally Active 0.5 MG [facility]ally [facility] Enrique Guzm[facility] Atorvastatin Calcium 1 tablet Orally Active 40 MG Orally Once a day [place] Carlos Enrique Guzmán Prolia 60MG SQ Subcutaneous Active 60 MG/ML Subcutaneous [id number] [place] Carlos Enrique Fletcher Glimepiride 1/2 tablet Orally Active 2 MG Orally Once a day [place] Carlos Enrique Corral Amiodarone HCl 1 tablet Orally Active 200 MG Orally Once a day [facility] Enrique Guzm[facility] Aspirin 1 tablet Orally Active 81 MG Orally Once a day Leyva Carlos Enrique Fletcher Anoro Ellipta 1 puff Inhalation Active 62.5-25 MCG/INH Inhalation Once a day [place] Carlos Enrique Corral Farxiga 1 tablet Orally Active 5 MG Orally Once a day [place] Carlos Enrique Fletcher Vitamin D 1 capsule Orally Active 2000 iu Orally twice a day [place] Carlos Enrique Fletcher Eliquis 1 tablet Orally Active 5 MG Orally once a day [place] Carlos Enrique Fletcher PreserVision AREDS as directed Orally Active Orally [place] Carlos Enrique Guzmán Calcium 1 tablet with meals Orally Active 600 MG Orally Twice a day [place] Carlos Enrique Corral Atenolol 1 tablet Orally Active 50 MG Orally Once a day [place] Carlos Enrique Fletcher Tylenol Arthritis Pain 2 tablets Orally Active 650 MG Orally twice a day [place] Carlos Enrique Corral Felodipine ER 1 tablet Orally Active 5 MG Orally Once a day [place] Carlos Enrique Fletcher Furosemide 1 tablet Orally Active 20 MG Orally Once a day Gordon Fletcher Omeprazole 1 capsule Orally Active 20 MG Orally Once a day Betohema Guzmán Sodium Bicarbonate 1 tablet Orally Active 10 mg Orally BID Betohema Guzmán Propranolol HCl 1 tablet Orally Active 20 MG Orally Twice a day Betohema Guzmán Advair Diskus 1 puff Inhalation Active 250-50 MCG/DOSE Inhalation Twice a day Betohema Guzmán Farxiga 1 tablet Orally Active 5 MG Orally Once a day Betohema Guzmán Aspirin 81 1 tablet Orally Active 81 MG Orally Once a day Betohema Guzmán Eliquis as directed Orally Active 2.5 MG Orally twice a day (bid) Betohema Guzmán Toujessicao SoloStar 8 units pm 4 units am Subcutaneous Active 300 UNIT/ML Subcutaneous daily Betohema Guzmán Vitamin D as directed Orally Active 2000 UNIT Orally Once a day Betohema Guzmán PreserVision AREDS 2 as directed Orally Active Orally BID Betohema Guzmán Januvia 1 tablet Orally Active 100 MG Orally Once a day Gordon GuzmánAdriánCarlos Enriqueyina Fletcher Tylenol Arthritis Pain as directed Orally Active 2/650 MG Orally BID Betohema Guzmán Atorvastatin Calcium 1 tablet Orally Active 40 mg Orally Once a day Betohema Guzmán Aristides Aspirin EC Low Dose 1 tablet Orally Active 81 MG Orally Once a day Betohema Guzmán Glimepiride 1/2 tablet Orally Active 2 MG Orally Once a day Betohema Guzmán PreserVision AREDS 2 as directed Orally Active Orally BID Arielle Guzmán Advair Diskus 1 puff Inhalation Active 250-50 MCG/DOSE Inhalation Twice a day Betohema Guzmán Calcium 1 tablet with meals Orally Active 600 MG Orally Once a day Betohema Guzmán Furosemide 1 tablet Orally Active 20 mg Orally Once a day Betohema Guzmán Atenolol 1 tablet Orally Active 50 mg Orally Once a day Betohema Guzmán Januvia 1 tablet Orally Active 100 MG Orally Once a day Betohema Guzmán Omeprazole 1 capsule Orally Active 20 MG Orally Once a day Betohema Guzmán Vitamin D as directed Orally Active 2000 UNIT Orally Once a day Betohema Guzmán Allopurinol 1 tablet Orally Active 100 MG Orally Once a day Betohema Guzmán Felodipine ER 1 tablet Orally Active 5 MG Orally Once a day Betohema Guzmán Sodium Bicarbonate 1 tablet Orally Active 650 MG Orally BID [facility] Hamlet Guzmán Allergies, Adverse Reactions, Alerts Substance Category Reaction Severity Reaction type Status Date Reported Comments Source Codeine Adverse Reaction Stomach Upset Adverse Reaction Active 09/16/2017 [facility] Mason Guzmán Codeine Sulfate Adverse Reaction Info Not Available Adverse Reaction Active 12/09/2018 Carlos Enrique Fletcher Immunizations No Data Provided for This Section Results Order Name Results Value Reference Range Date Interpretation Comments Source Capillary blood glucose measurement by glucometer (mass/volume) 232 70 - 120 01/19/2019 [facility] Blood leukocytes automated count (number/volume) 11.33 4.8 - 10.8 01/19/2019 [facility] Blood erythrocytes automated count (number/volume) 3.63 3.6 - 5.1 01/19/2019 [facility] Blood hemoglobin measurement (moles/volume) 9.9 12.0 - 16.0 01/19/2019 [facility] Automated blood hematocrit (volume fraction) 31.2 34.2 - 44.1 01/19/2019 [facility] Automated erythrocyte mean corpuscular volume 86.0 81 - 99 01/19/2019 [facility] Automated erythrocyte mean corpuscular hemoglobin (mass per erythrocyte) 27.3 28 - 32 01/19/2019 [facility] Automated erythrocyte mean corpuscular hemoglobin concentration measurement (mass/volume) 31.7 31 - 35 01/19/2019 [facility] RDW BldCo-Rto 15.1 11.7 - 14.4 01/19/2019 [facility] Automated blood platelet count (count/volume) 151 140 - 360 01/19/2019 [facility] Automated blood segmented neutrophil count as percentage of total leukocytes 88.5 38.7 - 80.0 01/19/2019 [facility] Automated blood lymphocyte count as percentage ot total leukocytes 4.5 18.0 - 39.1 01/19/2019 [facility] Automated blood monocyte count as percentage of total leukocytes 6.3 4.4 - 11.3 01/19/2019 [facility] Automated blood eosinophil count as percentage of total leukocytes 0.0 0.0 - 6.0 01/19/2019 [facility] Automated blood basophil count as percentage of total leukocytes 0.1 0.0 - 1.0 01/19/2019 [facility] IM GRANULOCYTES % 0.6 0.0 - 1.0 01/19/2019 [facility] Automated blood neutrophil count 10.0 2.1 - 6.9 01/19/2019 [facility] Blood lymphocytes count (number/volume) 0.5 1.0 - 3.2 01/19/2019 [facility] Blood monocytes automated count (number/volume) 0.7 0.2 - 0.8 01/19/2019 [facility] Automated blood eosinophil count 0.0 0.0 - 0.4 01/19/2019 [facility] Automated blood basophil count (count/volume) 0.0 0.0 - 0.1 01/19/2019 [facility] Absolute Immature Granulocyte (auto 0.07 0 - 0.1 01/19/2019 [facility] Differential Total Cells Counted 100 01/19/2019 [facility] Manual blood neutrophils/100 leukocytes 87 40 - 74 01/19/2019 [facility] Manual blood lymphocytes/100 leukocytes 7 19 - 48 01/19/2019 [facility] Manual blood monocytes/100 leukocytes 6 3.4 - 9.0 01/19/2019 [facility] Blood platelets count by estimate (number/volume) ADEQUATE 01/19/2019 [facility] Platelet morphology NORMAL 01/19/2019 [facility] Blood poikilocytosis detection by light microscopy S 01/19/2019 [facility] Blood anisocytosis detection by light microscopy S 01/19/2019 [facility] RBC morphology NORMAL 01/19/2019 [facility] Serum or plasma sodium measurement (moles/volume) 140 136 - 145 01/19/2019 [facility] Serum or plasma potassium measurement (moles/volume) 4.1 3.5 - 5.1 01/19/2019 [facility] Serum or plasma chloride measurement (moles/volume) 95 98 - 107 01/19/2019 [facility] Serum or plasma carbon dioxide, total measurement (moles/volume) 30 22 - 29 01/19/2019 [facility] Serum or plasma anion gap 19.1 8 - 16 01/19/2019 [facility] Serum or plasma urea nitrogen measurement (mass/volume) 94 7 - 26 01/19/2019 [facility] Serum or plasma creatinine measurement (mass/volume) 2.67 0.57 - 1.11 01/19/2019 [facility] Serum or plasma urea nitrogen/creatinine mass ratio 35 6 - 25 01/19/2019 [facility] Estimated glomerular filtration rate (GFR) determination 17 60 01/19/2019 [facility] Glucose measurement 195 74 - 118 01/19/2019 [facility] Serum or plasma calcium measurement (mass/volume) 8.6 8.4 - 10.2 01/19/2019 [facility] Serum or plasma total bilirubin measurement (mass/volume) 0.6 0.2 - 1.2 01/19/2019 [facility] Aspartate Amino Transf (AST/SGOT) 64 5 - 34 01/19/2019 [facility] Serum or plasma alanine aminotransferase measurement (enzymatic activity/volume) 66 0 - 55 01/19/2019 [facility] Serum or plasma protein measurement (mass/volume) 6.3 6.5 - 8.1 01/19/2019 [facility] Serum or plasma albumin measurement (mass/volume) 3.2 3.5 - 5.0 01/19/2019 [facility] Plasma globulin measurement (mass/volume) 3.1 2.3 - 3.5 01/19/2019 [facility] Serum or plasma albumin/globulin mass ratio 1.0 0.8 - 2.0 01/19/2019 [facility] Serum or plasma alkaline phosphatase measurement (enzymatic activity/volume) 97 40 - 150 01/19/2019 [facility] Blood hypochromia detection by light microscopy SLIGHT 01/17/2019 [facility] Serum or plasma magnesium measurement (mass/volume) 2.6 1.3 - 2.1 01/17/2019 [facility] Manual blood band neutrophils form/100 leukocytes 3 01/15/2019 [facility] Manual blood eosinophil count as percentage of total leukocytes 1 0 - 7 01/15/2019 [facility] Blood macrocytes detection by light microscopy MODERATE 01/15/2019 [facility] BNP Bld-nc 1061.1 0 - 100 01/15/2019 [facility] Urine color determination RED YELLOW 01/15/2019 [facility] Urine clarity CLOUDY CLEAR 01/15/2019 [facility] Specific gravity of Urine by Test strip 1.020 1.010 - 1.025 01/15/2019 [facility] Urine pH measurement by automated test strip 6 5 - 7 01/15/2019 [facility] Urine leukocyte esterase detection by automated test strip TRACE NEGATIVE 01/15/2019 [facility] Urine nitrite detection by automated test strip NEGATIVE NEGATIVE 01/15/2019 [facility] Urine protein detection by automated test strip 2+ NEGATIVE 01/15/2019 [facility] Urine glucose detection by automated test strip NEGATIVE NEGATIVE 01/15/2019 [facility] Urine ketones detection by automated test strip NEGATIVE NEGATIVE 01/15/2019 [facility] Urine urobilinogen measurement by test strip (mass/volume) 0.2 0.2 - 1 01/15/2019 [facility] Urine total bilirubin detection NEGATIVE NEGATIVE 01/15/2019 [facility] Urine erythrocytes detection 3+ NEGATIVE 01/15/2019 [facility] Automated urine sediment leukocyte count by microscopy (number/high power field) 11-20 0 - 5 01/15/2019 [facility] Erythrocytes detection in urine sediment by light microscopy >50 0 - 5 01/15/2019 [facility] Bacteria detection in urine sediment by light microscopy MANY NONE 01/15/2019 [facility] Epithelial cells detection in urine sediment by light microscopy FEW NONE 01/15/2019 [facility] Urine protein measurement (mass/volume) 80.1 1 - 14 01/15/2019 [facility] Urine creatinine measurement (mass/volume) 70.01 47 - 110 01/15/2019 [facility] Random urine protein/creatinine ratio 1.00 01/15/2019 [facility] Hemoglobin A1c Percent 7.1 4.0 - 7.0 01/14/2019 [facility] Serum or plasma uric acid measurement (mass/volume) 11.1 2.6 - 8.0 01/14/2019 [facility] Serum or plasma triglyceride measurement (mass/volume) 56 0 - 149 01/14/2019 [facility] Serum or plasma cholesterol measurement (mass/volume) 135 0 - 199 01/14/2019 [facility] Serum or plasma cholesterol in LDL measurement (mass/volume) 68 60 - 130 01/14/2019 [facility] Serum or plasma cholesterol in HDL measurement (mass/volume) 56 40 - 60 01/14/2019 [facility] Serum or plasma total cholesterol/cholesterol in HDL mass ratio 2.4 3.0 - 3.6 01/14/2019 [facility] Serum or plasma creatine kinase measurement (enzymatic activity/volume) 57 29 - 168 01/14/2019 [facility] Serum or plasma creatine kinase MB measurement (mass/volume) 3.20 0 - 5.0 01/14/2019 [facility] Troponin I measurement by highly sensitive enzyme immunoassay 0.036 0 - 0.300 01/14/2019 [facility] Serum or plasma thyrotropin measurement by detection limit <=0.005 miu/l (units/volume) 0.806 0.350 - 4.940 01/14/2019 [facility] Hyaline casts detection in urine sediment by light microscopy 2-5 0 - 1 01/13/2019 [facility] Coarse granular casts detection in urine sediment by light microscopy 1-5 0 01/13/2019 [facility] Arterial blood pH measurement 7.39 7.31 - 7.41 01/13/2019 [facility] pCO2 BldA 46 41 - 51 01/13/2019 [facility] pCO2 BldA 130 80 - 105 01/13/2019 [facility] Arterial blood bicarbonate measurement (moles/volume) 28 23 - 28 01/13/2019 [facility] Arterial blood base excess by calculation 3.0 -2 - 3 - 2 01/13/2019 [facility] Arterial blood oxygen saturation measurement 99.0 95 - 98 01/13/2019 [facility] FiO2 32 01/13/2019 [facility] Prothrombin time (PT) in platelet poor plasma by coagulation assay 16.4 11.9 - 14.5 01/13/2019 [facility] INR in Platelet poor plasma by Coagulation assay 1.26 01/13/2019 [facility] Activated partial thromboplastin time (aPTT) in platelet poor plasma bycoagulation assay 31.1 23.8 - 35.5 01/13/2019 [facility] Lactic Acid Level 8.2 4.5 - 19.8 01/13/2019 [facility] Serum or plasma lipase measurement (enzymatic activity/volume) 113 8 - 78 01/13/2019 [facility] Blood culture NO GROWTH AFTER 5 DAYS, FINAL REPORT 01/13/2019 [facility] Capillary blood glucose measurement by glucometer (mass/volume) Capillary blood glucose measurement by glucometer (mass/volume) 301 70 - 120 09/26/2017 [facility] Estimated glomerular filtration rate (GFR) determination Estimated glomerular filtration rate (GFR) determination 24 60 09/26/2017 [facility] Glucose measurement Glucose measurement 92 74 - 118 09/26/2017 [facility] Serum or plasma anion gap Serum or plasma anion gap 16.1 8 - 16 09/26/2017 [facility] Serum or plasma calcium measurement (mass/volume) Serum or plasma calcium measurement (mass/volume) 9.7 8.4 - 10.2 09/26/2017 [facility] Serum or plasma carbon dioxide, total measurement (moles/volume) Serum or plasma carbon dioxide, total measurement (moles/volume) 33 22 - 29 09/26/2017 [facility] Serum or plasma chloride measurement (moles/volume) Serum or plasma chloride measurement (moles/volume) 97 98 - 107 09/26/2017 [facility] Serum or plasma creatinine measurement (mass/volume) Serum or plasma creatinine measurement (mass/volume) 1.99 0.57 - 1.11 09/26/2017 [facility] Serum or plasma potassium measurement (moles/volume) Serum or plasma potassium measurement (moles/volume) 4.1 3.5 - 5.1 09/26/2017 [facility] Serum or plasma sodium measurement (moles/volume) Serum or plasma sodium measurement (moles/volume) 142 136 - 145 09/26/2017 [facility] Serum or plasma trough vancomycin level at trough (mass/volume) Serum or plasma trough vancomycin level at trough (mass/volume) 12.1 5.0 - 10.0 09/26/2017 [facility] Serum or plasma urea nitrogen measurement (mass/volume) Serum or plasma urea nitrogen measurement (mass/volume) 45 7 - 26 09/26/2017 [facility] Serum or plasma urea nitrogen/creatinine mass ratio Serum or plasma urea nitrogen/creatinine mass ratio 23 6 - 25 09/26/2017 [facility] Automated blood basophil count (count/volume) Automated blood basophil count (count/volume) 0.0 0.0 - 0.1 09/25/2017 [facility] Automated blood basophil count as percentage of total leukocytes Automated blood basophil count as percentage of total leukocytes 0.3 0.0 - 1.0 09/25/2017 [facility] Automated blood eosinophil count Automated blood eosinophil count 0.6 0.0 - 0.4 09/25/2017 [facility] Automated blood eosinophil count as percentage of total leukocytes Automated blood eosinophil count as percentage of total leukocytes 5.3 0.0 - 6.0 09/25/2017 [facility] Automated blood hematocrit (volume fraction) Automated blood hematocrit (volume fraction) 32.4 34.2 - 44.1 09/25/2017 [facility] Automated blood lymphocyte count as percentage ot total leukocytes Automated blood lymphocyte count as percentage ot total leukocytes 11.8 18.0 - 39.1 09/25/2017 [facility] Automated blood monocyte count as percentage of total leukocytes Automated blood monocyte count as percentage of total leukocytes 10.9 4.4 - 11.3 09/25/2017 [facility] Automated blood neutrophil count Automated blood neutrophil count 7.7 2.1 - 6.9 09/25/2017 [facility] Automated blood platelet count (count/volume) Automated blood platelet count (count/volume) 243 140 - 360 09/25/2017 [facility] [facility] Automated blood segmented neutrophil count as percentage of total leukocytes Automated blood segmented neutrophil count as percentage of total leukocytes 71.1 38.7 - 80.0 09/25/2017 [facility] Automated erythrocyte mean corpuscular hemoglobin (mass per erythrocyte) Automated erythrocyte mean corpuscular hemoglobin (mass per erythrocyte) 28.3 28 - 32 09/25/2017 [facility] Automated erythrocyte mean corpuscular hemoglobin concentration measurement (mass/volume) Automated erythrocyte mean corpuscular hemoglobin concentration measurement (mass/volume) 31.5 31 - 35 09/25/2017 [facility] Automated erythrocyte mean corpuscular volume Automated erythrocyte mean corpuscular volume 89.8 81 - 99 09/25/2017 [facility] Blood erythrocytes automated count (number/volume) Blood erythrocytes automated count (number/volume) 3.61 3.6 - 5.1 09/25/2017 [facility] Blood hemoglobin measurement (moles/volume) Blood hemoglobin measurement (moles/volume) 10.2 12.0 - 16.0 09/25/2017 [facility] Blood leukocytes automated count (number/volume) Blood leukocytes automated count (number/volume) 10.77 4.8 - 10.8 09/25/2017 [facility] Blood lymphocytes count (number/volume) Blood lymphocytes count (number/volume) 1.3 1.0 - 3.2 09/25/2017 [facility] Blood monocytes automated count (number/volume) Blood monocytes automated count (number/volume) 1.2 0.2 - 0.8 09/25/2017 [facility] Red Cell Distribution Width 17.2 11.7 - 14.4 09/25/2017 [facility] IM GRANULOCYTES % 0.6 0.0 - 1.0 09/25/2017 [facility] Absolute Immature Granulocyte (auto 0.06 0 - 0.1 09/25/2017 [facility] Serum or plasma creatine kinase MB measurement (mass/volume) Serum or plasma creatine kinase MB measurement (mass/volume) 0.60 0 - 5.0 09/23/2017 [facility] Serum or plasma creatine kinase measurement (enzymatic activity/volume) Serum or plasma creatine kinase measurement (enzymatic activity/volume) 19 29 - 168 09/23/2017 [facility] Troponin I measurement by highly sensitive enzyme immunoassay Troponin I measurement by highly sensitive enzyme immunoassay 0.020 0 - 0.300 09/23/2017 [facility] Plasma globulin measurement (mass/volume) Plasma globulin measurement (mass/volume) 2.9 2.3 - 3.5 09/23/2017 [facility] Serum or plasma alanine aminotransferase measurement (enzymatic activity/volume) Serum or plasma alanine aminotransferase measurement (enzymatic activity/volume) 39 0 - 55 09/23/2017 [facility] Serum or plasma albumin measurement (mass/volume) Serum or plasma albumin measurement (mass/volume) 2.4 3.5 - 5.0 09/23/2017 [facility] Serum or plasma albumin/globulin mass ratio Serum or plasma albumin/globulin mass ratio 0.8 0.8 - 2.0 09/23/2017 [facility] Serum or plasma alkaline phosphatase measurement (enzymatic activity/volume) Serum or plasma alkaline phosphatase measurement (enzymatic activity/volume) 164 40 - 150 09/23/2017 [facility] Serum or plasma protein measurement (mass/volume) Serum or plasma protein measurement (mass/volume) 5.3 6.5 - 8.1 09/23/2017 [facility] Serum or plasma total bilirubin measurement (mass/volume) Serum or plasma total bilirubin measurement (mass/volume) 1.2 0.2 - 1.2 09/23/2017 [facility] Aspartate Amino Transf (AST/SGOT) 29 5 - 34 09/23/2017 [facility] Activated partial thromboplastin time (aPTT) in platelet poor plasma bycoagulation assay Activated partial thromboplastin time (aPTT) in platelet poor plasma bycoagulation assay 30.8 23.8 - 35.5 09/22/2017 [facility] Blood culture Blood culture NO GROWTH AFTER 72 HOURS 09/22/2017 [facility] INR in Platelet poor plasma by Coagulation assay INR in Platelet poor plasma by Coagulation assay 1.35 09/22/2017 [facility] Prothrombin time (PT) in platelet poor plasma by coagulation assay Prothrombin time (PT) in platelet poor plasma by coagulation assay 15.7 11.9 - 14.5 09/22/2017 [facility] Lactic Acid Level 28.3 4.5 - 19.8 09/22/2017 [facility] B-Type Natriuretic Peptide 2519.7 0 - 100 09/22/2017 [facility] Pathology Reports No Data Provided for This [...] Enrique Fletcher Weight 195 09/16/2017 Mohamed O Jeroudi Height 64 09/16/2017 Mohamed O Jeroudi Temperature [...] 09/16/2017 [facility] Enrique Fletcher Weight 203 01/18/2014 Hamlet Guzmán Height 64 01/18/2014 Hamlet Guzmán Temperature Oral (F) 96.7 F 01/18/2014 Hamlet Guzmán Heart Rate 57 01/18/2014 Hamlet Guzmán Diastolic (mm Hg) 55 01/18/2014 Hamlet Guzmán Systolic (mm Hg) 115 01/18/2014 Hamlet Guzmán Encounters Location Location Details Encounter Type Encounter Number Reason For Visit Attending Provider ADM Date DC Date Status Source Hamlet Guzmán MD PA [facility] follow up [id number] 01/18/2014 01/18/2014 Hamlet Guzmán Registered Referred [id number] EZEQUIEL RUIZ MD 07/23/2017 [facility] Registered Clinic [id number] JEAN NIÑO MD 09/20/2017 [facility] Discharged Inpatient [id number] JEAN NIÑO MD 09/22/2017 09/26/2017 [facility] Discharged Inpatient [id number] JEAN NIÑO MD 01/13/2019 01/19/2019 [facility] Procedures Procedure Code Date Perfomer Comments Source Ultrasound, renal [id number] 01/14/2019 [facility] X-ray of chest, two views [id number] 09/22/2017 [facility] Assessment and Plan No Data Provided for This Section Plan of Care Plan of Care Date Source Discharge Date 01/19/19 5:07pm Disposition TRANSFER INTERMEDIATE Prescriptions See Medication Section 01/19/2019 [facility] Discharge Date 09/26/17 5:51pm Disposition TRANSFER INTERMEDIATE Prescriptions See Medication Section 09/26/2017 [facility] Social History Social History Date Source Social [...] Status Start Date Stop Date Former smoker 01/19/2019 [facility] Social History ElementQualifiersDate Reported Smoking . Status [...] Does the patient have an advance directive? No 01/13/19 4:00pm If yes, is advance directive on file with [facility]? No 01/13/19 4:00pm If not on file with [facility] will patient provide a copy? No 01/13/19 4:00pm Do you have a Directive to Physician? 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 Yes 01/13/19 1:05pm Do you have an out of hospital Do Not Resuscitate Order? Yes 01/13/19 1:05pm Do you have any special needs we should be aware of? Yes 01/13/19 1:05pm Do you have a support person here with you today? Yes 01/13/19 1:05pm Did patient receive Notice of Privacy Practices? Yes 01/13/19 1:05pm Did patient receive patient rights and responsibilities? Yes 01/13/19 1:05pm 01/19/2019 [facility] Advance Directives Advance Directives Directive Response Recorded Date/Time Does the patient have an advance directive? Yes 09/23/17 12:52am If yes, is advance directive on file with [facility]? No 09/23/17 12:52am If not on file with [facility] will patient provide a copy? Yes 09/23/17 12:52am Do you have a Directive to Physician? No 09/22/17 9:00pm Do you have a Medical Power of Metal Riveting Machine Operator? No 09/22/17 9:00pm Do you have an [...] rights and responsibilities? Yes 09/22/17 9:00pm 09/26/2017 [facility] Functional Status No Data Provided for This Section
[2019-02-05 18:44] LABS: BASOPHILS % 0.3 % (0.0-1.0); EOSINOPHILS # (AUTO) 0.3 (0.0-0.4); EOSINOPHILS % 3.3 % (0.0-6.0); HEMATOCRIT 28.8 % (34.2-44.1); HEMOGLOBIN 8.9 g/dL (12.0-16.0); LYMPHOCYTES # (AUTO) 1.2 (1.0-3.2); LYMPHOCYTES % 13.1 % (18.0-39.1); MEAN CORPUSCULAR HEMOGLOBIN 26.8 pg (28-32); MEAN CORPUSCULAR HGB CONC 30.9 g/dL (31-35); MEAN CORPUSCULAR VOLUME 86.7 fL (81-99); MONOCYTES # (AUTO) 1.1 (0.2-0.8); MONOCYTES % 11.9 % (4.4-11.3); NEUTROPHILS # (AUTO) 6.3 (2.1-6.9); NEUTROPHILS % 70.8 % (38.7-80.0); PLATELET COUNT 153 x10e3/uL (140-360); RED BLOOD COUNT 3.32 x10e6/uL (3.6-5.1); RED CELL DISTRIBUTION WIDTH 16.6 % (11.7-14.4)
--- NOTE | 2019-02-05 18:46 | Diagnostic Imaging Report ---
EXAMINATION: CHEST SINGLE (PORTABLE) INDICATION: ^sob ^[id number] ^[id number] COMPARISON: 01/14/2019 FINDINGS: AP view TUBES and LINES: None. LUNGS: Limited by body habitus. Unchanged elevated right hemidiaphragm. Pulmonary vascular congestion on mild interstitial edema. PLEURA: No significant pleural effusion or pneumothorax. HEART AND MEDIASTINUM: The cardiomediastinal silhouette is enlarged. BONES AND SOFT TISSUES: No acute osseous lesion. Soft tissues are unremarkable. UPPER ABDOMEN: No free air under the diaphragm. IMPRESSION: Enlarged cardiomediastinal silhouette, pulmonary vascular congestion, and mild interstitial edema. Unchanged elevated right hemidiaphragm. Signed by: Dr. Shiv Dean MD on 02/05/2019 6:42 PM
[2019-02-05 19:01] LABS: ALBUMIN/GLOBULIN RATIO 1.1 (0.8-2.0); ANION GAP 16.3 mmol/L (8-16); CALCIUM 9.6 mg/dL (8.4-10.2); POTASSIUM 4.3 mmol/L (3.5-5.1)
[2019-02-05 19:09] LABS: CREATINE KINASE MB 4.8 ng/mL (0-5.0)
[2019-02-05 19:25] LABS: ABG PCO2 45 mmHg (41-51); ABG PH 7.41 (7.31-7.41); ABG PO2 79 mmHg (80-105)
[2019-02-05 19:26] LABS: ABG HCO3 29 mmol/L (23-28)
[2019-02-05] MEDS ORDERED: DEXTROSE 50% SYRINGE 50 ML IV PRN (20:15)
[2019-02-05] MEDS ORDERED: SODIUM CHLORIDE FLUSH 10 ML SYR INJ PRN (20:15)
--- OUTSIDE RECORDS SUMMARY | 2019-02-05 20:21 | XMS REPORT | Continuity of Care Document ---
Author Author [facility] [employer] Organization [facility] Utility Funding Information [employer] Address Unknown Phone Unavailable Care Team Providers Care Keyboard Operator Name Role Phone [facility] Utility Funding Information [place] Unavailable Unavailable Problems Problem Status Onset Date Classification Date Reported Comments Source CHF Active Problem 09/26/2017 [facility] Cellulitis of left lower extremity without foot Active Problem 01/19/2019 [facility] Pulmonary edema Active Problem 01/19/2019 [facility] Anemia Active Problem 01/19/2019 [facility] Congestive heart failure Active Problem 01/19/2019 [facility] Edema Active Problem 01/19/2019 [facility] Acute renal failure superimposed on chronic kidney disease Active Problem 01/19/2019 [facility] Vitamin D deficiency Active Problem 12/11/2018 Carlos [...] Active Problem 11/14/2018 [facility] Guzm[facility] Atherosclerosis of [place] coronary artery of [place] heart with angina pectoris Active Problem 11/14/2018 [facility] Guzmán Atherosclerosis of [place] coronary artery of [place] heart without angina pectoris Active Problem 11/14/2018 [...] Active Problem 01/28/2014 [facility] Guzmán Atherosclerosis of [place] arteries of the extremities with intermittent claudication Active Problem 01/28/2014 [facility] Guzmán Angina Active Problem 01/28/2014 [facility] Guzmán Medications Medication Details Route Status Patient Instructions Ordering Provider Order Date Source Albuterol Sulfate (Proair Hfa Inhaler*) 8.5 Gm Inh, 108 Mcg Inhalation As Needed Active 01/13/2019 [facility] Bumetanide 1 Mg Tablet, 0.5 Mg Oral Daily Active 01/13/2019 [facility] Farxiga , 5 Mg Oral Daily Active 01/13/2019 [facility] OrthoVisc 2 ml in the R) knee Intra-articular Active 30 MG/2ML Intra-articular Once a week for three weeks [place] 11/03/2018 Carlos Enrique Fletcher OrthoVisc 2 ml in R knee Intra- articular Active 30 MG/2ML Intra- articular every 6 months [place] 10/17/2018 Carlos Enrique Fletcher Albuterol Sulfate (Proair Hfa Inhaler*) 8.5 Gm Inh As Needed Active [facility] Amiodarone Hcl 200 Mg Tablet Bedtime Active [facility] Aspirin (Aspir 81) 81 Mg Tablet. Daily Active [facility] Atorvastatin Calcium 20 Mg Tablet Bedtime Active [facility] Bumetanide 1 Mg Tablet Daily Active [facility] Calcium Twice A Day Active [facility] Cholecalciferol (Vitamin D3) (Vitamin D) 1,000 Unit Tablet Daily Active [facility] Eliquis Twice A Day Active [facility] Farxiga Daily Active [facility] Glimepiride 2 Mg Tablet Daily Active [facility] Propranolol Hcl 40 Mg Tablet Twice A Day Active [facility] Sodium Bicarbonate 650 Mg Tablet Twice A Day Active [facility] Toaydin [place] Daily Active [facility] Vit A/Vit C/Vit E/Zinc/Copper (Preservision Areds Softgel) 1 Each Capsule Twice A Day Active [facility] Amiodarone Hcl 200 Mg Tablet Bedtime Active [facility] Aspirin (Aspir 81) 81 Mg Tablet. Daily Active [facility] Atorvastatin Calcium 20 Mg Tablet Bedtime Active [facility] Furosemide 40 Mg Tablet Daily Active [facility] Glimepiride 2 Mg Tablet Daily Active [facility] Propranolol Hcl 40 Mg Tablet Twice A Day Active [facility] Sodium Bicarbonate 650 Mg Tablet Three Times A Day Active [facility] ProAir HFA 2 puffs as needed Inhalation Active 108 (90 Base) MCG/ACT Inhalation every 4 hrs Leyvamaria eugenia Fletcher Sodium Bicarbonate 3 tablets Orally Active 650 MG Orally twice a day [place] Carlos Enrique Fletcher Bumetanide as directed Orally Active 0.5 [facility] Enrique Guzm[facility] Atorvastatin Calcium 1 tablet Orally Active 40 MG Orally Once a day [place] Carlos Enrique Guzmán Prolia 60MG SQ Subcutaneous Active 60 MG/ML Subcutaneous [id number] [place] Carlos Enrique Fletcher Glimepiride 1/2 tablet Orally Active 2 MG Orally Once a day [place] Carlos Enrique Corral Amiodarone HCl 1 tablet Orally Active 200 MG Orally [facility] a day [facility]rique [facility] Aspirin 1 tablet Orally Active 81 MG Orally Once a day [place] Carlos Enrique Fletcher Anoro Ellipta 1 puff Inhalation Active 62.5-25 MCG/INH Inhalation Once a day [place] Carlos Enrique Corral Farxiga 1 tablet Orally Active 5 MG Orally Once a day [place] Carlos Enrique Fletcher Vitamin D 1 capsule Orally Active 2000 iu Orally twice a day [place] Carlos Enrique Fletcher Eliquis 1 tablet Orally Active 5 MG Orally once a day [place] Carlos Enrique Fletcher PreserVision AREDS as directed Orally Active Orally [place] Carlos Enrique Guzmán Calcium 1 tablet with meals Orally Active 600 MG Orally Twice a day [place] Carlos Enrique Corral Atenolol 1 tablet Orally Active 50 MG Orally Once a day [place] Carlos Enrique Fletcher Tylenol Arthritis Pain 2 tablets Orally Active 650 MG Orally twice a day [place] Carlos Enrique Corral Felodipine ER 1 tablet Orally Active 5 MG Orally Once a day [place] Carlos Enrique Fletcher Furosemide 1 tablet Orally [...] Active 2000 UNIT Orally Once a day Betoehma Guzmán Allopurinol 1 tablet Orally Active 100 MG Orally Once a day Betohema Guzmán Felodipine ER 1 tablet Orally Active 5 MG Orally Once a day Betohema Guzmán Sodium Bicarbonate 1 tablet Orally Active 650 MG Orally [facility] Guzm[facility] Allergies, Adverse Reactions, Alerts Substance Category Reaction Severity Reaction type Status Date Reported Comments Source Codeine Adverse Reaction Stomach Upset Adverse Reaction Active 09/16/[facility] Guzm[facility] Codeine Sulfate Adverse Reaction Info Not Available Adverse Reaction Active 12/09/2018 Carlos Enrique Fletcher Immunizations No Data Provided for This Section Results Order Name Results Value Reference Range Date Interpretation Comments Source Capillary blood glucose measurement by glucometer (mass/volume) 232 70 - 120 01/19/2019 [facility] Blood leukocytes automated count (number/volume) 11.33 4.8 - 10.8 01/19/2019 [facility] Blood erythrocytes automated count (number/volume) 3.63 3.6 - 5.1 01/19/2019 [facility] Blood hemoglobin measurement (moles/volume) 9.9 12.0 - 16.0 01/19/2019 [facility] Automated blood hematocrit (volume fraction) 31.2 34.2 - 44.1 01/19/2019 [facility] Automated erythrocyte mean corpuscular volume 86.0 81 - 99 01/19/2019 [facility] Automated erythrocyte mean corpuscular hemoglobin (mass per erythrocyte) 27.3 28 - 32 01/19/2019 [facility] Automated erythrocyte mean corpuscular hemoglobin concentration measurement (mass/volume) 31.7 31 - 35 01/19/2019 [facility] RDW BldCo-Rto 15.1 11.7 - 14.4 01/19/2019 [facility] Automated blood platelet count (count/volume) 151 140 - 360 01/19/2019 [facility] Automated blood segmented neutrophil count as percentage of total leukocytes 88.5 38.7 - 80.0 01/19/2019 [facility] Automated blood lymphocyte count as percentage ot total leukocytes 4.5 18.0 - 39.1 01/19/2019 [facility] Automated blood monocyte count as percentage of total leukocytes 6.3 4.4 - 11.3 01/19/2019 [facility] Automated blood eosinophil count as percentage of total leukocytes 0.0 0.0 - 6.0 01/19/2019 [facility] Automated blood basophil count as percentage of total leukocytes 0.1 0.0 - 1.0 01/19/2019 [facility] IM GRANULOCYTES % 0.6 0.0 - 1.0 01/19/2019 [facility] Automated blood neutrophil count 10.0 2.1 - 6.9 01/19/2019 [facility] Blood lymphocytes count (number/volume) 0.5 1.0 - 3.2 01/19/2019 [facility] Blood monocytes automated count (number/volume) 0.7 0.2 - 0.8 01/19/2019 [facility] Automated blood eosinophil count 0.0 0.0 - 0.4 01/19/2019 [facility] Automated blood basophil count (count/volume) 0.0 0.0 - 0.1 01/19/2019 [facility] Absolute Immature Granulocyte (auto 0.07 0 - 0.1 01/19/2019 [facility] Differential Total Cells Counted 100 01/19/2019 [facility] Manual blood neutrophils/100 leukocytes 87 40 - 74 01/19/2019 [facility] Manual blood lymphocytes/100 leukocytes 7 19 - 48 01/19/2019 [facility] Manual blood monocytes/100 leukocytes 6 3.4 - 9.0 01/19/2019 [facility] Blood platelets count by estimate (number/volume) ADEQUATE 01/19/2019 [facility] Platelet morphology NORMAL 01/19/2019 [facility] Blood poikilocytosis detection by light microscopy S 01/19/2019 [facility] Blood anisocytosis detection by light microscopy S 01/19/2019 [facility] RBC morphology NORMAL 01/19/2019 [facility] Serum or plasma sodium measurement (moles/volume) 140 136 - 145 01/19/2019 [facility] Serum or plasma potassium measurement (moles/volume) 4.1 3.5 - 5.1 01/19/2019 [facility] Serum or plasma chloride measurement (moles/volume) 95 98 - 107 01/19/2019 [facility] Serum or plasma carbon dioxide, total measurement (moles/volume) 30 22 - 29 01/19/2019 [facility] Serum or plasma anion gap 19.1 8 - 16 01/19/2019 [facility] Serum or plasma urea nitrogen measurement (mass/volume) 94 7 - 26 01/19/2019 [facility] Serum or plasma creatinine measurement (mass/volume) 2.67 0.57 - 1.11 01/19/2019 [facility] Serum or plasma urea nitrogen/creatinine mass ratio 35 6 - 25 01/19/2019 [facility] Estimated glomerular filtration rate (GFR) determination 17 60 01/19/2019 [facility] Glucose measurement 195 74 - 118 01/19/2019 [facility] Serum or plasma calcium measurement (mass/volume) 8.6 8.4 - 10.2 01/19/2019 [facility] Serum or plasma total bilirubin measurement (mass/volume) 0.6 0.2 - 1.2 01/19/2019 [facility] Aspartate Amino Transf (AST/SGOT) 64 5 - 34 01/19/2019 [facility] Serum or plasma alanine aminotransferase measurement (enzymatic activity/volume) 66 0 - 55 01/19/2019 [facility] Serum or plasma protein measurement (mass/volume) 6.3 6.5 - 8.1 01/19/2019 [facility] Serum or plasma albumin measurement (mass/volume) 3.2 3.5 - 5.0 01/19/2019 [facility] Plasma globulin measurement (mass/volume) 3.1 2.3 - 3.5 01/19/2019 [facility] Serum or plasma albumin/globulin mass ratio 1.0 0.8 - 2.0 01/19/2019 [facility] Serum or plasma alkaline phosphatase measurement (enzymatic activity/volume) 97 40 - 150 01/19/2019 [facility] Blood hypochromia detection by light microscopy SLIGHT 01/17/2019 [facility] Serum or plasma magnesium measurement (mass/volume) 2.6 1.3 - 2.1 01/17/2019 [facility] Manual blood band neutrophils form/100 leukocytes 3 01/15/2019 [facility] Manual blood eosinophil count as percentage of total leukocytes 1 0 - 7 01/15/2019 [facility] Blood macrocytes detection by light microscopy MODERATE 01/15/2019 [facility] BNP Bld-nc 1061.1 0 - 100 01/15/2019 [facility] Urine color determination RED YELLOW 01/15/2019 [facility] Urine clarity CLOUDY CLEAR 01/15/2019 [facility] Specific gravity of Urine by Test strip 1.020 1.010 - 1.025 01/15/2019 [facility] Urine pH measurement by automated test strip 6 5 - 7 01/15/2019 [facility] Urine leukocyte esterase detection by automated test strip TRACE NEGATIVE 01/15/2019 [facility] Urine nitrite detection by automated test strip NEGATIVE NEGATIVE 01/15/2019 [facility] Urine protein detection by automated test strip 2+ NEGATIVE 01/15/2019 [facility] Urine glucose detection by automated test strip NEGATIVE NEGATIVE 01/15/2019 [facility] Urine ketones detection by automated test strip NEGATIVE NEGATIVE 01/15/2019 [facility] Urine urobilinogen measurement by test strip (mass/volume) 0.2 0.2 - 1 01/15/2019 [facility] Urine total bilirubin detection NEGATIVE NEGATIVE 01/15/2019 [facility] Urine erythrocytes detection 3+ NEGATIVE 01/15/2019 [facility] Automated urine sediment leukocyte count by microscopy (number/high power field) 11-20 0 - 5 01/15/2019 [facility] Erythrocytes detection in urine sediment by light microscopy >50 0 - 5 01/15/2019 [facility] Bacteria detection in urine sediment by light microscopy MANY NONE 01/15/2019 [facility] Epithelial cells detection in urine sediment by light microscopy FEW NONE 01/15/2019 [facility] Urine protein measurement (mass/volume) 80.1 1 - 14 01/15/2019 [facility] Urine creatinine measurement (mass/volume) 70.01 47 - 110 01/15/2019 [facility] Random urine protein/creatinine ratio 1.00 01/15/2019 [facility] Hemoglobin A1c Percent 7.1 4.0 - 7.0 01/14/2019 [facility] Serum or plasma uric acid measurement (mass/volume) 11.1 2.6 - 8.0 01/14/2019 [facility] Serum or plasma triglyceride measurement (mass/volume) 56 0 - 149 01/14/2019 [facility] Serum or plasma cholesterol measurement (mass/volume) 135 0 - 199 01/14/2019 [facility] Serum or plasma cholesterol in LDL measurement (mass/volume) 68 60 - 130 01/14/2019 [facility] Serum or plasma cholesterol in HDL measurement (mass/volume) 56 40 - 60 01/14/2019 [facility] Serum or plasma total cholesterol/cholesterol in HDL mass ratio 2.4 3.0 - 3.6 01/14/2019 [facility] Serum or plasma creatine kinase measurement (enzymatic activity/volume) 57 29 - 168 01/14/2019 [facility] Serum or plasma creatine kinase MB measurement (mass/volume) 3.20 0 - 5.0 01/14/2019 [facility] Troponin I measurement by highly sensitive enzyme immunoassay 0.036 0 - 0.300 01/14/2019 [facility] Serum or plasma thyrotropin measurement by detection limit <=0.005 miu/l (units/volume) 0.806 0.350 - 4.940 01/14/2019 [facility] Hyaline casts detection in urine sediment by light microscopy 2-5 0 - 1 01/13/2019 [facility] Coarse granular casts detection in urine sediment by light microscopy 1-5 0 01/13/2019 [facility] Arterial blood pH measurement 7.39 7.31 - 7.41 01/13/2019 [facility] pCO2 BldA 46 41 - 51 01/13/2019 [facility] pCO2 BldA 130 80 - 105 01/13/2019 [facility] Arterial blood bicarbonate measurement (moles/volume) 28 23 - 28 01/13/2019 [facility] Arterial blood base excess by calculation 3.0 -2 - 3 - 2 01/13/2019 [facility] Arterial blood oxygen saturation measurement 99.0 95 - 98 01/13/2019 [facility] FiO2 32 01/13/2019 [facility] Prothrombin time (PT) in platelet poor plasma by coagulation assay 16.4 11.9 - 14.5 01/13/2019 [facility] INR in Platelet poor plasma by Coagulation assay 1.26 01/13/2019 [facility] Activated partial thromboplastin time (aPTT) in platelet poor plasma bycoagulation assay 31.1 23.8 - 35.5 01/13/2019 [facility] Lactic Acid Level 8.2 4.5 - 19.8 01/13/2019 [facility] Serum or plasma lipase measurement (enzymatic activity/volume) 113 8 - 78 01/13/2019 [facility] Blood culture NO GROWTH AFTER 5 DAYS, FINAL REPORT 01/13/2019 [facility] Capillary blood glucose measurement by glucometer (mass/volume) Capillary blood glucose measurement by glucometer (mass/volume) 301 70 - 120 09/26/2017 [facility] Estimated glomerular filtration rate (GFR) determination Estimated glomerular filtration rate (GFR) determination 24 60 09/26/2017 [facility] Glucose measurement Glucose measurement 92 74 - 118 09/26/2017 [facility] Serum or plasma anion gap Serum or plasma anion gap 16.1 8 - 16 09/26/2017 [facility] Serum or plasma calcium measurement (mass/volume) Serum or plasma calcium measurement (mass/volume) 9.7 8.4 - 10.2 09/26/2017 [facility] Serum or plasma carbon dioxide, total measurement (moles/volume) Serum or plasma carbon dioxide, total measurement (moles/volume) 33 22 - 29 09/26/2017 [facility] Serum or plasma chloride measurement (moles/volume) Serum or plasma chloride measurement (moles/volume) 97 98 - 107 09/26/2017 [facility] Serum or plasma creatinine measurement (mass/volume) Serum or plasma creatinine measurement (mass/volume) 1.99 0.57 - 1.11 09/26/2017 [facility] Serum or plasma potassium measurement (moles/volume) Serum or plasma potassium measurement (moles/volume) 4.1 3.5 - 5.1 09/26/2017 [facility] Serum or plasma sodium measurement (moles/volume) Serum or plasma sodium measurement (moles/volume) 142 136 - 145 09/26/2017 [facility] Serum or plasma trough vancomycin level at trough (mass/volume) Serum or plasma trough vancomycin level at trough (mass/volume) 12.1 5.0 - 10.0 09/26/2017 [facility] Serum or plasma urea nitrogen measurement (mass/volume) Serum or plasma urea nitrogen measurement (mass/volume) 45 7 - 26 09/26/2017 [facility] Serum or plasma urea nitrogen/creatinine mass ratio Serum or plasma urea nitrogen/creatinine mass ratio 23 6 - 25 09/26/2017 [facility] Automated blood basophil count (count/volume) Automated blood basophil count (count/volume) 0.0 0.0 - 0.1 09/25/2017 [facility] Automated blood basophil count as percentage of total leukocytes Automated blood basophil count as percentage of total leukocytes 0.3 0.0 - 1.0 09/25/2017 [facility] Automated blood eosinophil count Automated blood eosinophil count 0.6 0.0 - 0.4 09/25/2017 [facility] Automated blood eosinophil count as percentage of total leukocytes Automated blood eosinophil count as percentage of total leukocytes 5.3 0.0 - 6.0 09/25/2017 [facility] Automated blood hematocrit (volume fraction) Automated blood hematocrit (volume fraction) 32.4 34.2 - 44.1 09/25/2017 [facility] Automated blood lymphocyte count as percentage ot total leukocytes Automated blood lymphocyte count as percentage ot total leukocytes 11.8 18.0 - 39.1 09/25/2017 [facility] Automated blood monocyte count as percentage of total leukocytes Automated blood monocyte count as percentage of total leukocytes 10.9 4.4 - 11.3 09/25/2017 [facility] Automated blood neutrophil count Automated blood neutrophil count 7.7 2.1 - 6.9 09/25/2017 [facility] Automated blood platelet count (count/volume) Automated blood platelet count (count/volume) 243 140 - 360 09/25/2017 [facility] Automated blood segmented neutrophil count as percentage of total leukocytes Automated blood segmented neutrophil count as percentage of total leukocytes 71.1 38.7 - 80.0 09/25/2017 [facility] Automated erythrocyte mean corpuscular hemoglobin (mass per erythrocyte) Automated erythrocyte mean corpuscular hemoglobin (mass per erythrocyte) 28.3 28 - 32 09/25/2017 [facility] Automated erythrocyte mean corpuscular hemoglobin concentration measurement (mass/volume) Automated erythrocyte mean corpuscular hemoglobin concentration measurement (mass/volume) 31.5 31 - 35 09/25/2017 [facility] Automated erythrocyte mean corpuscular volume Automated erythrocyte mean corpuscular volume 89.8 81 - 99 09/25/2017 [facility] Blood erythrocytes automated count (number/volume) Blood erythrocytes automated count (number/volume) 3.61 3.6 - 5.1 09/25/2017 [facility] Blood hemoglobin measurement (moles/volume) Blood hemoglobin measurement (moles/volume) 10.2 12.0 - 16.0 09/25/2017 [facility] Blood leukocytes automated count (number/volume) Blood leukocytes automated count (number/volume) 10.77 4.8 - 10.8 09/25/2017 [facility] Blood lymphocytes count (number/volume) Blood lymphocytes count (number/volume) 1.3 1.0 - 3.2 09/25/2017 [facility] Blood monocytes automated count (number/volume) Blood monocytes automated count (number/volume) 1.2 0.2 - 0.8 09/25/2017 [facility] Red Cell Distribution Width 17.2 11.7 - 14.4 09/25/2017 [facility] IM GRANULOCYTES % 0.6 0.0 - 1.0 09/25/2017 [facility] Absolute Immature Granulocyte (auto 0.06 0 - 0.1 09/25/2017 [facility] Serum or plasma creatine kinase MB measurement (mass/volume) Serum or plasma creatine kinase MB measurement (mass/volume) 0.60 0 - 5.0 09/23/2017 [facility] Serum or plasma creatine kinase measurement (enzymatic activity/volume) Serum or plasma creatine kinase measurement (enzymatic activity/volume) 19 29 - 168 09/23/2017 [facility] Troponin I measurement by highly sensitive enzyme immunoassay Troponin I measurement by highly sensitive enzyme immunoassay 0.020 0 - 0.300 09/23/2017 [facility] Plasma globulin measurement (mass/volume) Plasma globulin measurement (mass/volume) 2.9 2.3 - 3.5 09/23/2017 [facility] Serum or plasma alanine aminotransferase measurement (enzymatic activity/volume) Serum or plasma alanine aminotransferase measurement (enzymatic activity/volume) 39 0 - 55 09/23/2017 [facility] Serum or plasma albumin measurement (mass/volume) Serum or plasma albumin measurement (mass/volume) 2.4 3.5 - 5.0 09/23/2017 [facility] Serum or plasma albumin/globulin mass ratio Serum or plasma albumin/globulin mass ratio 0.8 0.8 - 2.0 09/23/2017 [facility] Serum or plasma alkaline phosphatase measurement (enzymatic activity/volume) Serum or plasma alkaline phosphatase measurement (enzymatic activity/volume) 164 40 - 150 09/23/2017 [facility] Serum or plasma protein measurement (mass/volume) Serum or plasma protein measurement (mass/volume) 5.3 6.5 - 8.1 09/23/2017 [facility] Serum or plasma total bilirubin measurement (mass/volume) Serum or plasma total bilirubin measurement (mass/volume) 1.2 0.2 - 1.2 09/23/2017 [facility] Aspartate Amino Transf (AST/SGOT) 29 5 - 34 09/23/2017 [facility] Activated partial thromboplastin time (aPTT) in platelet poor plasma bycoagulation assay Activated partial thromboplastin time (aPTT) in platelet poor plasma bycoagulation assay 30.8 23.8 - 35.5 09/22/2017 [facility] Blood culture Blood culture NO GROWTH AFTER 72 HOURS 09/22/2017 [facility] INR in Platelet poor plasma by Coagulation assay INR in Platelet poor plasma by Coagulation assay 1.35 09/22/2017 [facility] Prothrombin time (PT) in platelet poor plasma by coagulation assay Prothrombin time (PT) in platelet poor plasma by coagulation assay 15.7 11.9 - 14.5 09/22/2017 [facility] Lactic Acid Level 28.3 4.5 - 19.8 09/22/2017 [facility] B-Type Natriuretic Peptide 2519.7 0 - 100 09/22/2017 [facility] Pathology Reports No Data Provided for This [...] Status Source Hamlet Guzmán MD PA [facility] follow up [id number] 01/18/2014 01/18/2014 Hamlet Guzmán Registered Referred [id number] EZEQUIEL RUIZ MD 07/23/2017 [facility] Registered Clinic [id number] JEAN NIÑO MD 09/20/2017 [facility] Discharged Inpatient [id number] JEAN NIÑO MD 09/22/2017 09/26/2017 [facility] Discharged Inpatient [id number] JEAN NIÑO MD 01/13/2019 01/19/2019 [facility] Procedures Procedure Code Date Perfomer Comments Source Ultrasound, renal [id number] 01/14/2019 [facility] X-ray of chest, two views [id number] 09/22/2017 ANUPAM [facility] Assessment and Plan No Data Provided for This Section Plan of Care Plan of Care Date Source Discharge Date 01/19/19 5:07pm Disposition TRANSFER RETIREMENT Prescriptions See Medication Section 01/19/2019 [facility] Discharge Date 09/26/17 5:51pm Disposition TRANSFER RETIREMENT Prescriptions See Medication Section 09/26/2017 [facility] Social History Social History Date Source Social [...] Start Date Stop Date Former smoker 01/19/2019 [facility] Social History ElementQualifiersDate Reported Smoking . Status [...] yes, is advance directive on file with [facility]? No 01/13/19 4:00pm If not on file with [facility] will patient provide a copy? No 01/13/19 4:00pm Do you have a Directive to Physician? Yes 01/13/19 1:05pm Do you have a Medical Power of Business Controller? Yes 01/13/19 1:05pm Do you have an [...] rights and responsibilities? Yes 01/13/19 1:05pm 01/19/2019 [facility] Advance Directives Advance Directives Directive Response Recorded Date/Time Does the patient have an advance directive? Yes 09/23/17 12:52am If yes, is advance directive on file with [facility]? No 09/23/17 12:52am If not on file with [facility] will patient provide a copy? Yes 09/23/17 12:52am Do you have a Directive to Physician? No 09/22/17 9:00pm Do you have a Medical Power of Business Controller? No 09/22/17 9:00pm Do you have an [...] responsibilities? Yes 09/22/17 9:00pm 09/26/2017 [facility] Functional Status No Data Provided for This Section
[2019-02-05] MEDS ORDERED: FUROSEMIDE INJ 10 MG/ML 4 ML VIAL IV SCH (21:00)
[2019-02-05] MEDS: INSULIN REGULAR, HUMAN 100 UNIT/1 ML 3ML VIAL SQ SCH (21:00)
--- NOTE | 2019-02-05 21:05 | NUR ---
Pt admitted to room 297 by EMS via stretcher from [facility]. Pt alert to name, person, hospital, and symptoms of weakness, decreased appetite, lower back pain. Pt skin warm and intact, bruise to right thigh and blanchable redness to left heel. Lungs wheezing. cap refill immediate. Pitting edema +1 bilateral LE. x1 assist with transfer, uses WC at home. BS commode, urine dark chad, mild odor. Denies pain at this time. Oriented to room. Bed low and locked. Bed alarm on.
[2019-02-05 21:10] VITALS: BP 129/58
[2019-02-05 21:19] LABS: BILIRUBIN,URINE NEGATIVE (NEGATIVE); CLARITY,URINE SL CLOUDY (CLEAR); COLOR,URINE YELLOW (YELLOW); KETONES,URINE NEGATIVE (NEGATIVE); LEUKOCYTE ESTERASE ,URINE NEGATIVE (NEGATIVE); NITRITE,URINE NEGATIVE (NEGATIVE); PROTEIN,URINE DIPSTICK TRACE (NEGATIVE); URINE UROBILINOGEN 0.2 mg/dL (0.2 - 1)
[2019-02-05 21:31] LABS: BACTERIA,URINE MODERATE /HPF; EPITHELIAL CELLS,URINE FEW /LPF; RENAL EPITHELIAL CELLS,URINE FEW
[2019-02-05] MEDS: FUROSEMIDE INJ 10 MG/ML 4 ML VIAL IV SCH (21:46)
[2019-02-05 21:54] VITALS: BP 129/58
[2019-02-05 22:09] VITALS: BP 129/58
[2019-02-05] MEDS: ONDANSETRON HCL INJ 2MG/ML 2ML 2 MG/ML VIAL IV PRN (23:48)
[2019-02-06] VITALS (8 sets, daily range): BP systolic 108–120; BP diastolic 52–60
[2019-02-06] MEDS ORDERED: BUMETANIDE1 MG PO (01:06)
[2019-02-06] MEDS ORDERED: NOVOLIN R100 UNIT/1 (01:06)
[2019-02-06] MEDS ORDERED: ZOLOFT50 MG (01:06)
[2019-02-06] MEDS ORDERED: ROBAXIN-750750 MG (01:06)
[2019-02-06] MEDS ORDERED: LANTUS 3ML100 UNITS/ (01:06)
[2019-02-06 03:25] LABS: BASOPHILS % 0.3 % (0.0-1.0); EOSINOPHILS # (AUTO) 0.3 (0.0-0.4); EOSINOPHILS % 3.3 % (0.0-6.0); HEMATOCRIT 27.4 % (34.2-44.1); HEMOGLOBIN 8.4 g/dL (12.0-16.0); LYMPHOCYTES # (AUTO) 1.2 (1.0-3.2); MEAN CORPUSCULAR HEMOGLOBIN 26.6 pg (28-32); MEAN CORPUSCULAR HGB CONC 30.7 g/dL (31-35); MEAN CORPUSCULAR VOLUME 86.7 fL (81-99); MONOCYTES # (AUTO) 0.9 (0.2-0.8); MONOCYTES % 10.7 % (4.4-11.3); NEUTROPHILS # (AUTO) 6.2 (2.1-6.9); NEUTROPHILS % 71.4 % (38.7-80.0); PLATELET COUNT 152 x10e3/uL (140-360); RED BLOOD COUNT 3.16 x10e6/uL (3.6-5.1); RED CELL DISTRIBUTION WIDTH 16.2 % (11.7-14.4)
[2019-02-06 03:50] LABS: CREATINE KINASE MB 5.1 ng/mL (0-5.0)
[2019-02-06 04:05] LABS: ALBUMIN/GLOBULIN RATIO 1.2 (0.8-2.0); ANION GAP 17.7 mmol/L (8-16); CALCIUM 9.6 mg/dL (8.4-10.2); CREATININE, SERUM 4.92 mg/dL (0.57-1.11); POTASSIUM 4.7 mmol/L (3.5-5.1)
--- NOTE | 2019-02-06 07:25 | NUR ---
BS rounds completed with morning nurse. Pt lying in bed HOB 30 degrees. Pt sleepy now, did not sleep last night. No acute distress noted.
[2019-02-06] MEDS: INSULIN REGULAR, HUMAN 100 UNIT/1 ML 3ML VIAL SQ SCH ×4 (07:30→20:48)
--- NOTE | 2019-02-06 07:40 | NUR ---
PATIENT IS ALERT TO SELF AND PLACE AND IS IN STABLE CONDITION WITH NO S/S OF RESPIRATORY DISTRESS. PAIN VOICED. TELEMETRY AND O2 APPLIED. AIR PUMP APPLIED. DRESSING TO RIGHT POSTERIOR CALF NOTED- DRY AND INTACT. BILATERAL PITTING EDEMA +3 NOTED TO LOWER EXTREMITIES. BED ALARM ON. CALL LIGHT IS WITHIN REACH, PATIENT INSTRUCTED TO CALL FOR ASSISTANCE NEEDED.
--- NOTE | 2019-02-06 07:57 | History and Physical ---
CHIEF COMPLAINT: 88-year-old female comes in with generalized weakness. HISTORY OF PRESENTING ILLNESS: This is Ms. Christianne Mcclure who has been in this hospital and was admitted and discharged to SNF facility for debility, was in usual state of health until two days prior to admission. The patient started to have some confusion, some sense of chills and no fever and jitteriness. The patient was sent to the emergency room and was found to have rxsiz-xz-lzrucdw renal failure and also admitted to the hospital for generalized debility and weakness, and also admitted for acute congestive heart failure. PAST MEDICAL HISTORY: History of hypertension, history of diabetes mellitus, history of hyperlipidemia and history of depression, history of chronic debility and history of congestive heart failure, history of cellulitis and history of chronic renal failure and chronic atrial fibrillation. MEDICATIONS: She takes at home are Amaryl 2 mg daily, Basaglar 10 units subcutaneously one time a day, Bumex 1 mg daily, Cordarone 200 mg daily, Eliquis 2.5 mg twice a day, Cheratussin q.6 hours, albuterol and ipratropium, Lipitor 40 mg, Lidoderm patches, Novolin sliding scale, propranolol 40 mg twice a day, Robaxin 500 mg q.6 hours, vitamin D3, and Zoloft 25 mg daily. The patient's additional history includes anemia of chronic disease and congestive heart failure. PAST SURGICAL HISTORY: History of hiatal hernia repair, tonsillectomy, appendectomy, and bilateral knee surgery. SOCIAL HISTORY: Lives by herself in assisted living, but recently was transferred to a rehab facility. ALLERGIES: NO DRUG ALLERGIES NOTED. REVIEW OF SYSTEMS: Negative for chest pain. Positive for shortness of breath. No nausea. No vomiting. No diarrhea. No constipation. No rectal bleeding. No hematochezia. Positive for generalized weakness. Positive for shortness of breath. No constipation. No rectal bleeding. No diplopia. No blurry vision. Positive for confusion and change in mental status also noted. PHYSICAL EXAMINATION: GENERAL: The patient is alert and oriented x3. Slurring her speech. Mouth is dry. HEENT: Normocephalic and atraumatic. CVS: S1 and S2, irregular. ABDOMEN: Nontender and nondistended. EXTREMITIES: Positive for edema. LABORATORY VALUES: White count 3.92, hemoglobin of 8.9, hematocrit of 28.8 microcytic, MCH 26.8, and RDW 16.6. Chemistry shows sodium of 132, potassium 4.3, BUN of 110, creatinine of 5, estimated EGFR was 8, glucose of 132, ALT 89, AST 80. BNP was 901. Urine, cloudy, trace protein, moderate amount of bacteria and rbc and wbc none, nitrites negative, and also leukocyte esterase negative. IMAGING STUDIES: Chest x-ray shows enlarged cardiac silhouette, pulmonary vascular congestion, mild interstitial edema, unchanged left hemidiaphragm elevation. ASSESSMENT: 1. 88-year-old female comes in with acute renal failure, on chronic renal failure present on admission. 2. Exqze-vc-uiqogtu congestive heart failure. 3. Coronary artery disease. 4. Hypertension. 5. Hyperlipidemia. 6. Diabetes mellitus. 7. Debility. 8. Anemia of chronic disease. 9. Azotemia. 10. Elevated liver enzymes. PLAN: To consult Dr. Valles, who has seen the patient earlier. The patient might need spot dialysis. Medication she is right now on 80 mg of Lasix q.12 hours. We will continue on insulin sliding scale. The patient is also on Zofran at this time. Vital signs are stable. Blood pressure is 114/53. We will restart her Eliquis at this time for atrial fibrillation. Other medications will be kept on hold and will be reinstated as vitals stabilize. Further recommendation per clinical course. We will continue to monitor the patient. MD GLORIA Hagan/MODL /[id number]
[2019-02-06] MEDS: FUROSEMIDE INJ 10 MG/ML 4 ML VIAL IV SCH (08:46)
[2019-02-06] MEDS: SERTRALINE HCL 50 MG TAB PO SCH (08:46)
[2019-02-06] MEDS: APIXAB 2.5 MG TABLET PO SCH ×2 (08:46→17:22)
[2019-02-06] MEDS ORDERED: NON-FORMULARY MEDICATION ([Eliquis] 2.5 MG) PO SCH (09:00)
--- NOTE | 2019-02-06 10:34 | Diagnostic Imaging Report ---
RENAL ULTRASOUND TECHNIQUE: Ultrasound evaluation of the KIDNEYS. Color Doppler evaluation was utilized to supplement the evaluation. HISTORY: Renal failure COMPARISON: 01/14/2019 DISCUSSION: RIGHT KIDNEY: The right kidney measures 9.2 cm in length. The cortex measures 1.2 cm in thickness. There is increased cortical echogenicity. No hydronephrosis or solid mass lesions. LEFT KIDNEY: The left kidney measures 8.9 cm in length. The cortex measures 1.1 cm in thickness. There is increased cortical echogenicity. No hydronephrosis or solid mass lesions. BLADDER: Unremarkable, bilateral ureteral cuts are visualized. IMPRESSION: Increased echogenicity of the bilateral kidneys which may be seen in medical renal disease. No evidence of hydronephrosis. Signed by: Warren Michele MD on 02/06/2019 10:31 AM
[2019-02-06] MEDS: ONDANSETRON HCL INJ 2MG/ML 2ML 2 MG/ML VIAL IV PRN (11:09)
[2019-02-06 12:29] LABS: CREATINE KINASE MB 7.1 ng/mL (0-5.0)
--- NOTE | 2019-02-06 12:57 | NUR ---
EDUCATED ABOUT IMM, SIGNED, FILED IN CHART, WITH COPY LEFT WITH FAMILY AT BEDSIDE.
--- NOTE | 2019-02-06 14:12 | NUR ---
DRESSING TO RIGHT CALF AREA HAS BEEN CHANGED- NEW DRESSING APPLIED. DRESSING IS DRY AND INTACT. BILATERAL FEET IS ELEVATED WITH PILLOW AND HEEL PROTECTORS APPLIED. BED ALARM ON.
--- NOTE | 2019-02-06 15:06 | NUR ---
UNABLE TO COMPLETE DPA AT THSI TIME, PT IS SLEEPING AND REQUESTED A RETURN AT LATER TIME
--- NOTE | 2019-02-06 17:20 | NUR ---
16F BEJARANO INSERTED AT 1659- URINE SAMPLE COLLECTED PER BEJARANO PORT. 24 HOUR COLLECTION STARTED AT 1700. KNEE HIGH PUSHPA HOSE APPLIED PER DR. CONNER'S ORDERS.
[2019-02-06] MEDS: DOCUSATE SODIUM 100 MG CAP PO SCH (17:22)
[2019-02-06 17:46] LABS: BILIRUBIN,URINE NEGATIVE (NEGATIVE); CLARITY,URINE SL CLOUDY (CLEAR); COLOR,URINE YELLOW (YELLOW); KETONES,URINE NEGATIVE (NEGATIVE); LEUKOCYTE ESTERASE ,URINE NEGATIVE (NEGATIVE); NITRITE,URINE NEGATIVE (NEGATIVE); PROTEIN,URINE DIPSTICK TRACE (NEGATIVE); URINE UROBILINOGEN 0.2 mg/dL (0.2 - 1)
[2019-02-06 18:00] LABS: CREATININE,URINE RANDOM 75.32 mg/dL (47-110); TOTAL PROTEIN, URINE 26.3 mg/dL (1-14)
[2019-02-06 18:11] LABS: AMORPHOUS SEDIMENT,URINE MODERATE (FEW); BACTERIA,URINE FEW /HPF; EPITHELIAL CELLS,URINE RARE /LPF; RENAL EPITHELIAL CELLS,URINE FEW
--- NOTE | 2019-02-06 20:13 | Consultation ---
DATE OF CONSULTATION: 02/06/2019 REASON FOR CONSULTATION: Management of kidney failure. HISTORY OF PRESENT ILLNESS: Ms. Mcclure is known to our Nephrology Service. 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 Sen and Dr. Walker, presented with just aches and pains all over. She is currently on oxygen 2 L nasal cannula, lying supine. Denies orthopnea, PND, shortness of breath, cough, fever, chills, or abdominal pain. ALLERGIES: NO APPARENT DRUG ALLERGIES. PAST MEDICAL HISTORY: As above including history of congestive heart failure, history of atrial fibrillation, history of prior cellulitis lower extremity, history of proteinuria, and advance kidney failure. She has been on Eliquis and propranolol as well as Lasix. SOCIAL HISTORY: Does not smoke or drink. FAMILY HISTORY: Significant for hypertension and diabetes. PAST SURGICAL HISTORY: History of hiatal hernia surgery, appendectomy, and tonsillectomy. She has a history of macular degeneration and COPD as well. CURRENT MEDICATIONS: The patient is on ondansetron p.r.n., sertraline 25 mg p.o. daily, Lasix 80 mg IV q.12, atorvastatin 40 mg at bedtime, Eliquis 2.5 mg p.o. b.i.d., Cordarone 200 mg p.o. at bedtime. DIAGNOSTIC DATA: Kidney ultrasound shows 9.2 and 8.9 cm kidneys with increased cortical echogenicity, suggestive of chronic kidney disease. Chest x-ray shows enlarged cardiomediastinal silhouette with pulmonary congestion and mild interstitial edema. LABORATORY TESTS: Shows a white count 8.7, hemoglobin 8.4 with a potassium 4.7, bicarbonate 28, BUN 110, and creatinine 4.9. PHYSICAL EXAMINATION: GENERAL: Awake, alert, lying supine, in no apparent distress. VITAL SIGNS: Blood pressure 114/53, pulse rate 57, afebrile, respiratory rate 20, and oxygen saturation 99% on 2 L nasal cannula. HEAD AND NECK: Cornea clear. Oral mucosa moist. LUNGS: Relatively clear. No rales. HEART: S1 and S2 audible. ABDOMEN: Otherwise soft and nontender. Flanks full. No apparent visceromegaly. EXTREMITIES: Lower extremity about 2+ edema. IMPRESSION AND PLAN: 1. Congestive heart failure. 2. Third-spacing edema. 3. Zimiv-ii-gsjnpas kidney failure, most likely chronic kidney disease 5. I will obtain a spot urine protein/creatinine ratio. Apply knee high PUSHPA hoses. We will start 24- hour urine collection for creatinine clearance and proteins. May need initiation of dialysis. We will switch to Bumex. MD YNES Alcala/DELLA /[id number]
[2019-02-06] MEDS: AMIODARONE HCL 200 MG TAB PO SCH (20:40)
[2019-02-06] MEDS: ATORVASTATIN 40 MG TAB PO SCH (20:48)
[2019-02-06] MEDS: BUMETANIDE 1 MG TAB PO SCH (20:48)
[2019-02-06] MEDS ORDERED: ATORVASTATIN 20 MG TAB PO SCH (21:00)
[2019-02-07] VITALS (8 sets, daily range): BP systolic 95–113; BP diastolic 52–66
[2019-02-07 06:07] LABS: BASOPHILS % 0.4 % (0.0-1.0); EOSINOPHILS # (AUTO) 0.3 (0.0-0.4); EOSINOPHILS % 3.2 % (0.0-6.0); HEMATOCRIT 26.4 % (34.2-44.1); HEMOGLOBIN 8.2 g/dL (12.0-16.0); LYMPHOCYTES # (AUTO) 1.2 (1.0-3.2); LYMPHOCYTES % 14.8 % (18.0-39.1); MEAN CORPUSCULAR HEMOGLOBIN 26.9 pg (28-32); MEAN CORPUSCULAR HGB CONC 31.1 g/dL (31-35); MEAN CORPUSCULAR VOLUME 86.6 fL (81-99); MONOCYTES # (AUTO) 0.9 (0.2-0.8); MONOCYTES % 11.2 % (4.4-11.3); NEUTROPHILS # (AUTO) 5.7 (2.1-6.9); NEUTROPHILS % 69.9 % (38.7-80.0); PLATELET COUNT 142 x10e3/uL (140-360); RED BLOOD COUNT 3.05 x10e6/uL (3.6-5.1); RED CELL DISTRIBUTION WIDTH 16.3 % (11.7-14.4)
[2019-02-07 06:33] LABS: ALBUMIN 2.8 g/dL (3.5-5.0); ALBUMIN/GLOBULIN RATIO 1.1 (0.8-2.0); ANION GAP 19.3 mmol/L (8-16); CALCIUM 8.9 mg/dL (8.4-10.2); CREATININE, SERUM 5.75 mg/dL (0.57-1.11); MAGNESIUM 2.7 MG/DL (1.3-2.1); POTASSIUM 5.3 mmol/L (3.5-5.1)
--- NOTE | 2019-02-07 06:40 | NUR ---
Call received from the lab Glucose is 48mg/dl. Check patient. Patient is alert and verbal. No confusion noted. [place] juice and pudding offered and taken by Patient.
--- NOTE | 2019-02-07 07:00 | NUR ---
Seen by Dr. Earl notified of low blood sugar and urine output of 150ml for the whole shift. No new orders at this time.
--- NOTE | 2019-02-07 07:00 | NUR ---
PATIENT IS ALERT AND IS IN STABLE CONDITION WITH NO S/S OF RESPIRATORY DISTRESS. NO PAIN VOICED. TELEMETRY AND O2 APPLIED. DRESSING TO RIGHT POSTERIOR CALF IS DRY AND INTACT; PUSHPA HOSE APPLIED BILATERALLY TO LOWER EXTREMITIES. BILATERAL PITTING EDEMA +3 NOTED TO LOWER EXTREMITIES. BED ALARM ON. BEJARANO INTACT AND DRAINING. DIAPER APPLIED. CALL LIGHT IS WITHIN REACH, PATIENT INSTRUCTED TO CALL FOR ASSISTANCE NEEDED.
--- NOTE | 2019-02-07 07:15 | NUR ---
Blood sugar rechecked. and revealed 92 mg/dl.
[2019-02-07 07:18] LABS: ANISOCYTOSIS SLIGHT; EOSINOPHILS % (MANUAL) 2 % (0-7); LYMPHOCYTES % (MANUAL) 17 % (19-48); MONOCYTES % (MANUAL) 2 % (3.4-9.0); NEUTROPHILS % (MANUAL) 79 % (40-74); PLATELET ESTIMATE ADEQUATE; PLATELET MORPHOLOGY COMMENT NORMAL; RBC MORPHOLOGY COMMENT NORMAL
[2019-02-07] MEDS: INSULIN REGULAR, HUMAN 100 UNIT/1 ML 3ML VIAL SQ SCH ×4 (07:30→20:31)
[2019-02-07] MEDS: BUMETANIDE 1 MG TAB PO SCH ×3 (08:03→20:31)
[2019-02-07] MEDS: DOCUSATE SODIUM 100 MG CAP PO SCH ×2 (08:03→17:09)
[2019-02-07] MEDS: APIXAB 2.5 MG TABLET PO SCH ×2 (08:04→17:09)
[2019-02-07] MEDS: SERTRALINE HCL 50 MG TAB PO SCH (08:04)
--- NOTE | 2019-02-07 08:21 | Progress Note ---
DATE: SUBJECTIVE: Comes in here for congestive heart failure, edema, acute on chronic renal failure stage 5, and the patient is currently switched to Bumex for IV diuresis. Currently stable, feeling better. No chest pain noted. No shortness of breath. No nausea, vomiting, or diarrhea. No constipation. The patient has a Tai catheter. OBJECTIVE: VITAL SIGNS: Temperature is 96.3, pulse of 60, blood pressure is 95/52, pulse oximetry of 100%. HEENT: Normocephalic, atraumatic. CVS: S1 and S2. Regular. ABDOMEN: Nontender, nondistended. EXTREMITIES: In PUSHPA hoses. NEURO: The patient's mental status is better from yesterday. LABORATORY VALUES: White count is 8.18, hemoglobin of 8.2, hematocrit of 26.4. Chemistries show sodium of 137, potassium is 5.3, BUN of 111, creatinine of 5.75 with a GFR of 7. Glucose was found to be 48. The patient has been given orange juice. Magnesium is 2.7. ALT and AST on the higher 77 and 89. Troponins have been trended to be negative. MEDICATIONS: The patient is on Bumex 2 mg 3 times a day, atorvastatin 40 mg, apixaban 2.5 mg twice a day, sertraline 25 mg, amiodarone 200 mg at bedtime, insulin regular, and the patient is on sodium chloride also. ASSESSMENT: An 88-year-old female with: 1. Acute on chronic congestive heart failure. 2. Acute on chronic renal failure. 3. Coronary artery disease. 4. Hypertension. 5. Hyperlipidemia. 6. Diabetes mellitus. 7. Hyperkalemia. 8. Anemia of chronic disease. 9. Elevated liver enzymes. PLAN: Continue with Bumex. The patient is on PUSHPA hoses. We will continue monitoring her renal functions and also continue with diuresing her adequately strict I's and O's. Low-salt diet. Further recommendation and clinical course. Dr. Valles is on board for this patient and will continue resuming her home medications and also antidiabetic medications and CV medications. Further recommendation and clinical course. We will continue monitoring her lytes. MD GLORIA Hagan/MODTamanna /[id number]
[2019-02-07] MEDS: ONDANSETRON HCL INJ 2MG/ML 2ML 2 MG/ML VIAL IV PRN (11:48)
--- NOTE | 2019-02-07 14:52 | NUR ---
CALLED AND RECEIVED MEDICATION ORDER FROM DR. NIÑO REGARDING PATIENT'S JITTERINESS. CALLED AND INFORMED DR. NIÑO OF PATIENT'S POTASSIUM OF 5.3- NO NEW ORDER GIVEN.
--- NOTE | 2019-02-07 15:45 | NUR ---
DR. BATISTA AT BEDSIDE. BMP DAILY FOR 3 DAYS PER THE
--- NOTE | 2019-02-07 17:05 | NUR ---
24 HOUR URINE SAMPLE COMPLETED AT [address] CONNER'S ORDER
[2019-02-07] MEDS: LORAZEPAM 0.5 MG TAB PO PRN (17:09)
--- NOTE | 2019-02-07 18:00 | NUR ---
CALL PLACED OUT TO DR. BATISTA AT [phone] TO CLARIFY ORDERS GIVEN TO ANOTHER DAY SHIFT NURSE. CALL REP STATED DR. FINK IS COVERING FOR DR. BATISTA AT THIS TIME- AWAITING CALLBACK.
--- NOTE | 2019-02-07 18:08 | NUR ---
RECEIVED CALL FROM DR. FINK AT 1805 REGARDING CLARIFICATION OF ORDERS. DR. FINK STATED TO MAKE THE BMP LAB ORDER xTHREE DAYS FROM DR. BATISTA EVERY AM.
[2019-02-07 19:02] LABS: CREATININE,URINE RANDOM 71.65 mg/dL (47-110)
--- NOTE | 2019-02-07 19:24 | NUR ---
PATIENT IS IN STABLE CONDITION WITH NO S/S OF RESPIRATORY DISTRESS. NO PAIN VOICED. BEJARANO INTACT AND DRAINING. PUSHPA HOSE AND HEEL PROTECTORS APPLIED. TELEMETRY APPLIED. BED ALARM ON. CALL LIGHT IS WITHIN REACH, PATIENT INSTRUCTED TO CALL FOR ASSISTANCE NEEDED. BEDSIDE REPORT GIVEN TO ONCOMING NURSE.
--- NOTE | 2019-02-07 19:35 | NUR ---
PT IS RESTING IN BED. RESPIRATION IS EVEN AND UNLABORED, NO DISTRESS NOTED. BED IN THE LOWEST POSITION, LOCKED, BED ALARM ON, AND CALL LIGHT WITHIN REACH. WILL CONTINUE TO MONITOR.
[2019-02-07] MEDS: ATORVASTATIN 40 MG TAB PO SCH (20:31)
[2019-02-07] MEDS: AMIODARONE HCL 200 MG TAB PO SCH (20:31)
[2019-02-08] VITALS (7 sets, daily range): BP systolic 91–125; BP diastolic 47–58
[2019-02-08 06:50] LABS: ANION GAP 20.2 mmol/L (8-16); CALCIUM 8.5 mg/dL (8.4-10.2); CREATININE, SERUM 6.01 mg/dL (0.57-1.11)
[2019-02-08 06:58] LABS: POTASSIUM 6.2 mmol/L (3.5-5.1)
--- NOTE | 2019-02-08 07:10 | NUR ---
PATIENT IN STABLE CONDITION WITH NO S/S OF RESPIRATORY DISTRESS. NO PAIN VOICED. TELEMETRY APPLIED. UPON SHIFT CHANGE PATIENT WAS WEAK TO RETURN TO BED FROM THE BEDSIDE COMMODE. BED ALARM APPLIED. FRIEND PRESENT IN ROOM. BEJARANO INTACT AND DRAINING- HEMATURIA NOTED. CALL LIGHT IS WITHIN REACH, PATIENT INSTRUCTED TO CALL FOR ASSISTANCE NEEDED.
[2019-02-08] MEDS: INSULIN REGULAR, HUMAN 100 UNIT/1 ML 3ML VIAL SQ SCH ×4 (07:30→21:16)
--- NOTE | 2019-02-08 07:37 | NUR ---
CALL PLACED OUT TO DR. FINK REGARDING CRITICAL POTASSIUM OF 6.2- AWAITING CALLBACK
--- NOTE | 2019-02-08 07:49 | NUR ---
RECEIVED CALLBACK FROM DR. FINK- INFORMED DR. FINK OF PATIENT'S POTASSIUM OF 6.2, BP OF 96/51, CO2 LEVEL OF 27, BUN 106/CREATININE 6.01, AND RESULTS FROM THE 24 HOUR URINE COLLECTION. ALSO INFORMED DR. FINK OF PATIENT'S BLOOD GLUCOSE LEVELS. DR. FINK AWARE NO DIALYSIS ORDER HAS BEEN PLACED FOR THE PATIENT. NEW ORDERS RECEIVED FOR 1 AMP OF D50, 10 UNIT OF IV REGULAR INSULIN, 60 GRAMS OF KAYEXALATE, AND 17 GRAMS OF MIRALAX, REPEAT POTASSIUM LAB AT NOON AND TO OBTAIN BLOOD GLUCOSE 1 HOUR AFTER ADMINISTERING D50 AND IV REGULAR INSULIN (10 UNITS).
--- NOTE | 2019-02-08 07:50 | NUR ---
DR. FINK AWARE PATIENT IS HAVING HEMATURIA. DR. FINK ASKED IF PATIENT STILL HAS THE BEJARANO IN PLACE AND RN INFORMED YES. ORDER TO KEEP BEJARANO IN PLACE.
[2019-02-08] MEDS ORDERED: SOD POLYSTYRENE SULFONATE SUSP 15 GM/60 ML BTL PO STA (07:54)
[2019-02-08] MEDS ORDERED: POLYETHYLENE GLYCOL 3350 17 GM PACK PO STA (07:54)
[2019-02-08] MEDS ORDERED: DEXTROSE 50% SYRINGE 50 ML IV STA (07:54)
[2019-02-08] MEDS: APIXAB 2.5 MG TABLET PO SCH ×2 (08:37→16:04)
[2019-02-08] MEDS: DOCUSATE SODIUM 100 MG CAP PO SCH ×2 (08:37→16:04)
[2019-02-08] MEDS: BUMETANIDE 1 MG TAB PO SCH ×3 (08:37→21:12)
[2019-02-08] MEDS: SERTRALINE HCL 50 MG TAB PO SCH (08:37)
[2019-02-08] MEDS ORDERED: INSULIN REGULAR, HUMAN 100 UNIT/1 ML 3ML VIAL IV NR (08:45)
--- NOTE | 2019-02-08 11:39 | Progress Note ---
DATE: HISTORY: An 88-year-old female comes in with acute renal failure. The patient also has acute congestive heart failure and history of coronary artery disease. Currently, the patient has lot of anxiety. No chest pain. No shortness of breath. Was jittery all day long yesterday, she was given Ativan 0.25 mg p.o., and feels better, but continues to have the same symptoms. PHYSICAL EXAMINATION: VITAL SIGNS: Temperature is 96.8, pulse of 67, respirations of 18, blood pressure is 99/50, pulse oximetry of 94%. The patient has oxygen by nasal cannula. HEENT: Normocephalic and atraumatic. CVS: S1, S2. Irregular. ABDOMEN: Nontender and nondistended. EXTREMITIES: No clubbing, no cyanosis, and no edema. MEDICATIONS: 1. Bumex. 2. Atorvastatin 40. 3. Amiodarone 200. 4. Lorazepam 0.25 as needed. 5. Docusate 100 mg twice a day. 6. Apixaban 2.5 mg b.i.d. 7. Zofran 4 mg q.6. 8. Sertraline 25 mg for depression. 9. Insulin sliding scale. LABORATORY VALUES: White count is 8.18, hemoglobin of 8.2, hematocrit of 26.4, platelet count of 142. IMAGING STUDIES: Renal ultrasound shows increased echogenicity of bilateral , which may be seen in medical renal disease. ASSESSMENT: 1. Acute on chronic congestive heart failure. 2. Acute on chronic renal failure. 3. Coronary artery disease. 4. Atrial fibrillation. 5. Hyperlipidemia. 6. Diabetes mellitus with chronic kidney disease, 5. 7. Anemia of chronic disease. 8. Elevated liver enzymes. PLAN: Continue with the current therapy. She is on Bumex. Continue monitoring her as an out. The patient will need dialysis. We will continue to monitor the patient. Further recommendation per clinical course. The patient's sodium today was 130, potassium of 6.2, BUN was 106, creatinine 6.0 with a GFR of 7. The patient will be followed up with Renal and will probably need dialysis with a potassium of 6.2. MD GLORIA Hagan/ALEXISL /[id number]
--- NOTE | 2019-02-08 18:53 | NUR ---
PATIENT IN STABLE CONDITION WITH NO S/S OF RESPIRATORY DISTRESS. NO PAIN VOICED. TELEMETRY APPLIED. BEJARANO INTACT AND DRAINING (HEMATURIA); DIAPER APPLIED. HEEL PROTECTORS ON. BED ALARM ON. CALL LIGHT IS WITHIN REACH, PATIENT INSTRUCTED TO CALL FOR ASSISTANCE NEEDED. BEDSIDE REPORT GIVEN TO ONCOMING NURSE.
--- NOTE | 2019-02-08 19:17 | NUR ---
RECEIVED ORDER FROM DR. NIÑO TO CHANGE CODE STATUS TO DNR PER PATIENT REQUEST/PATIENT'S POA'S REQUEST.
--- NOTE | 2019-02-08 19:25 | NUR ---
Received patient from day nurse, patient is stable, denies any concerns at this time. safety and fall precautions maintained as per hospital protocol: bed in lowest position and locked, needed items beside bed and call tan closed to patient, patient instructed to use it to call nurses for any help needed, patient verbalized understanding, patient is currently stable will continue to monitor.
[2019-02-08] MEDS: ATORVASTATIN 40 MG TAB PO SCH (21:12)
[2019-02-08] MEDS: AMIODARONE HCL 200 MG TAB PO SCH (21:12)
[2019-02-09] VITALS (7 sets, daily range): BP systolic 88–111; BP diastolic 43–54
[2019-02-09 06:19] LABS: BASOPHILS % 0.1 % (0.0-1.0); EOSINOPHILS # (AUTO) 0.2 (0.0-0.4); EOSINOPHILS % 2.2 % (0.0-6.0); HEMATOCRIT 25.9 % (34.2-44.1); HEMOGLOBIN 8.3 g/dL (12.0-16.0); LYMPHOCYTES % 11.9 % (18.0-39.1); MEAN CORPUSCULAR HEMOGLOBIN 26.9 pg (28-32); MEAN CORPUSCULAR VOLUME 83.8 fL (81-99); MONOCYTES # (AUTO) 1.1 (0.2-0.8); MONOCYTES % 13.1 % (4.4-11.3); NEUTROPHILS # (AUTO) 5.8 (2.1-6.9); PLATELET COUNT 161 x10e3/uL (140-360); RED BLOOD COUNT 3.09 x10e6/uL (3.6-5.1); RED CELL DISTRIBUTION WIDTH 16.3 % (11.7-14.4)
[2019-02-09 06:49] LABS: ANION GAP 18.1 mmol/L (8-16); CALCIUM 8.1 mg/dL (8.4-10.2); CREATININE, SERUM 6.38 mg/dL (0.57-1.11); POTASSIUM 4.1 mmol/L (3.5-5.1)
--- NOTE | 2019-02-09 07:18 | NUR ---
Patient endorsed to next shift for continuity of care.
[2019-02-09 07:26] LABS: LYMPHOCYTES % (MANUAL) 12 % (19-48); MONOCYTES % (MANUAL) 10 % (3.4-9.0); NEUTROPHILS % (MANUAL) 78 % (40-74)
[2019-02-09 07:27] LABS: ANISOCYTOSIS SLIGHT; HYPOCHROMASIA SLIGHT; PLATELET ESTIMATE MODERATELY DECREASED; RBC MORPHOLOGY COMMENT ABNORMAL
[2019-02-09] MEDS: INSULIN REGULAR, HUMAN 100 UNIT/1 ML 3ML VIAL SQ SCH ×4 (07:30→21:00)
[2019-02-09] MEDS: SERTRALINE HCL 50 MG TAB PO SCH (09:10)
[2019-02-09] MEDS: BUMETANIDE 1 MG TAB PO SCH ×3 (09:10→20:25)
[2019-02-09] MEDS: DOCUSATE SODIUM 100 MG CAP PO SCH ×2 (09:10→17:51)
[2019-02-09] MEDS: APIXAB 2.5 MG TABLET PO SCH ×2 (09:10→17:51)
--- NOTE | 2019-02-09 09:55 | NUR ---
EDUCATED ABOUT IMM, SIGNED, FILED IN CHART, WITH COPY LEFT WITH FAMILY AT BEDSIDE.
--- NOTE | 2019-02-09 10:14 | Progress Note ---
DATE: SUBJECTIVE: This is an 88-year-old female, comes in with acute renal failure. Also patient has history of atrial fibrillation, hypertension, hyperlipidemia, uncontrolled diabetes mellitus, and also history of depression. The patient is restarted on all her medication. The patient yesterday, the patient has made the decision to be do not resuscitate, which has been signed and also the patient wishes to be have no dialysis. Did discuss in detail with the patient about the risks and benefits of having dialysis and not having dialysis and patient wishes in strongly stands by her wishes to not do dialysis, currently asymptomatic. No chest pain. No shortness of breath, feeling better, feeling up to walking today. MEDICATIONS: 1. Amiodarone. 2. Apixaban. 3. Atorvastatin. 4. Bumex. 5. Docusate. 6. Ativan. 7. Sertraline. 8. Sodium chloride. OBJECTIVE: VITAL SIGNS: Temperature is 96, pulse of 80, respirations of 19, blood pressure is 96/50, pulse oximetry of 100% on 2 L of oxygen. HEENT: Normocephalic, atraumatic. Pupils are reactive to light and accommodation. CVS: S1, S2 normal. Regular rate and rhythm. LUNGS: Positive for crackles at bases. ABDOMEN: Nontender, nondistended, protuberant. EXTREMITIES: Positive for edema. Microbiology value; no growth in blood cultures. LABORATORY VALUES: Today's white count is 8.12, hemoglobin of 8.3, hematocrit of 25.9. Chemistry showed 131 sodium, potassium 41, BUN of 111, creatinine 6.38, and glucose is 43. Patient has been given glucose or juices at this time. She is asymptomatic. ASSESSMENT: 1. Acute renal failure. 2. Acute on chronic congestive heart failure. 3. Coronary artery disease. 4. Atrial fibrillation. 5. Hyperlipidemia. 6. Diabetes mellitus with complications of elevated liver enzymes. PLAN: Today would be to continue with same medication. Again, discussed with family or POA about her decision. We will come to a conclusion of what the patient will go. More likely hospice might be involved. Further recommendation per clinical course. We will continue to monitor the patient. MD GLORIA Hagan/MODL /[id number]
--- NOTE | 2019-02-09 11:21 | NUR ---
WOUND CARE INITIAL CONSULTATION THIS IS 88 YEAR OLD FEMALE ADMITTED TO [facility] WITH DX OF ANEMIA, CHRONIC ATRIAL FIBRILLATION, GENERALIZED WEAKNESS. HEAD TO TOE SKIN ASSESSMENT PERFORMED. NO WOUNDS NOTED. LABS: WBC:8.12 GLUCOSE:97 ALB:2.8 BLOOD CULTURE PRELIMINARY PENDING. RECOMMENDATIONS: CONTINUE WITH ALTERNATING LOW AIR LOSS MATTRESS. CONTINUE WITH PILLOW SUSPENSIONS AND HEEL PROTECTORS. TURN PT EVERY TWO HOURS AND PRN. RECONSULT WOUND CARE PRN. THANKS FOR THIS CONSULTATION. Addendum: 02/09/19 at 1134 by Nury Muñoz RN Amended: Links added.
[2019-02-09] MEDS: LORAZEPAM 0.5 MG TAB PO PRN (12:55)
[2019-02-09] MEDS ORDERED: LORAZEPAM INJ 2 MG/ML VIAL IV ONE (14:30)
--- NOTE | 2019-02-09 14:35 | NUR ---
Patient c/o wiggling and jittering on her lower extremities, which is not stopped by Ativan po 0.25mg, notified DR Earl, new order recvd to give ativan 0.25h IV 1 STAT, DOSE GIVEN
--- NOTE | 2019-02-09 16:00 | NUR ---
SPOKE WITH PATIENT ABOUT ORDERS WRITTEN BY , THERE IS A ORDER FOR A SNF AND A ORDER FOR HOSPICE. EDUCATED PT THAT INSURANCE WILL NOT PAY FOR BOTH, ASKED PT WHAT SHE WANTS TO DO FOR CHOICE, SHE STATES SHE WANTS TO RETURN TO THE [facility]. I EXPLAINED THAT IN ORDER FOR HER TO DO THAT SHE WOULD NEED TO PARTICIPATE WITH THERAPY. EDUCTED THAT IS SHE CHOOSES HOSPICE SHE WILL HAVE TO APPLY FOR MEDICAID PENDING FOR ROOM AND BOARD SINCE HOSPICE WILL NOT PAY FOR ROOM AND BOARD AND HOSPICE SERVICES. SHE ENFORCED THAT SHE WANT TO RETURN AND DO THERAPY, WILL SUBMIT CLINICALS PER PATIENT REQUEST.
--- NOTE | 2019-02-09 16:07 | NUR ---
FAXED CLINICALS TO [facility]
--- NOTE | 2019-02-09 17:29 | NUR ---
GOT A CALL FROM NURSES STATION ABOUT A HOSPICE NURSE HERE TO EVAL PATIENT. SPOKE WITH THE REP AND LET HER KNOW PATIENT DECLINED HOSPICE TO ME AND SIGNED CHOICE FOR SNF. REP STATES THE DOCTOR IS THE ONE THAT REACHED OUT TO HER. I EDUCATED HER SHE WOULD NOT BE ALLOWED TO SPEAK WITH A PATIENT IF A CHOICE WAS NOT SIGNED BY THE PATIENT BY LAW TO REVIEW HER RECORDS. SHE STATES SHE UNDERSTOOD AND WILL LET MD KNOW THAT I WOULD NOT LET HER SEE THE PATIENT.
[2019-02-09] MEDS ORDERED: LORAZEPAM 0.5 MG TAB PO PRN (18:45)
--- NOTE | 2019-02-09 19:10 | NUR ---
Received change of shift report. Walking rounds completed.
[2019-02-09] MEDS: ATORVASTATIN 40 MG TAB PO SCH (20:26)
[2019-02-09] MEDS: AMIODARONE HCL 200 MG TAB PO SCH (20:26)
[2019-02-10] VITALS: BP 84/57
--- NOTE | 2019-02-10 | NUR ---
Patient very drowsy and slightly confused. Repositioned patient in bed.Continue monitor.
[2019-02-10 04:00] VITALS: BP_SYST 74; BP_SYST 96; BP_DIAS 47; BP_DIAS 57
--- NOTE | 2019-02-10 05:14 | NUR ---
Patient resting quitly at this time.
[2019-02-10 06:34] LABS: ANION GAP 18.9 mmol/L (8-16); CALCIUM 7.9 mg/dL (8.4-10.2); CREATININE, SERUM 6.43 mg/dL (0.57-1.11); POTASSIUM 3.9 mmol/L (3.5-5.1)
[2019-02-10] MEDS: INSULIN REGULAR, HUMAN 100 UNIT/1 ML 3ML VIAL SQ SCH (07:30)
--- NOTE | 2019-02-10 07:39 | Progress Note ---
DATE: SUBJECTIVE: This is an 88-year-old female with a history of congestive heart failure, atrial fibrillation, acute renal failure, generalized weakness, and pulmonary edema. The patient is currently sleepy, has been given Ativan. She has been feeling nervous yesterday and also in the evening, was given a dose of IV Ativan, currently very sleepy. No chest pain. No shortness of breath. No nausea, vomiting, diarrhea, constipation noted by the nurses. OBJECTIVE: VITAL SIGNS: Temperature is 96.6, pulse of 87, respirations of 18, blood pressure is 96/57, pulse oximetry of 93% on 2 L of nasal cannula. HEENT: Normocephalic, atraumatic. Pupils are reactive to light and accommodation. CVS: S1 and S2 irregular. ABDOMEN: Nontender, nondistended. EXTREMITIES: Positive for edema. LABORATORY VALUES: White count is 8.12, hemoglobin of 8.3, hematocrit of 25.9. Chemistries; BUN of 108, creatinine 6.43, glucoses have been in the 300s to 138. The patient's calcium is 7.9. Urine creatinine 24 hours 251, volume is 350, creatinine 71.65 with a creatinine clearance of 3. MICROBIOLOGY: No growth. ASSESSMENT: 1. Acute renal failure, stage 5. The patient at this time does not want to have dialysis. 2. Atrial fibrillation and acute congestive heart failure. Continue with adequate diuresis. The patient wished to be in hospice services at first. We will go and transfer the patient back to rehab facility and we will continue to monitor the patient. 3. Further assessment includes coronary artery disease, atrial fibrillation, hyperlipidemia. The patient's POA has been contacted and at some point of time, the patient and POA would like to take care of all the medications. Further recommendation per clinical course. The patient can be discharged to [facility] when bed available. MD GLORIA Hagan/DELLA /[id number]
--- NOTE | 2019-02-10 07:42 | NUR ---
patient resting in bed, not in any distress, bed alarm ON
[2019-02-10 08:31] VITALS: BP 108/53
[2019-02-10 08:37] VITALS: BP 108/53
[2019-02-10] MEDS: APIXAB 2.5 MG TABLET PO SCH (08:46)
[2019-02-10] MEDS: SERTRALINE HCL 50 MG TAB PO SCH (08:46)
[2019-02-10] MEDS: DOCUSATE SODIUM 100 MG CAP PO SCH (08:46)
[2019-02-10] MEDS: BUMETANIDE 1 MG TAB PO SCH (09:10)
--- NOTE | 2019-02-10 09:30 | NUR ---
PT ACCEPTED BACK TO [facility] UNDER DR RUIZ CARE ROOM 112. RTF COMPLETED, EDUCATED FRIENDS ABOUT LEVEL OF CARE AND STEPS TO FOLLOW IF HOSPICE BECOMES OPTION AT FACILITY.
--- NOTE | 2019-02-10 12:49 | NUR ---
[facility] discharged to [facility], discharge order recvd from Dr Earl, Mrs Gonzales (guardian) notified. IV canula removed with tip intact, tele box returned, denies any pain not in any distress now, EMS here to pick patient
== END 2019-02-10 12:54 | DRG 291 ==
LOC: ER 17:46 → ERHOLD 20:18 → MED/SURG3 21:05
PROVIDERS: ADMIT Family Medicine; ATTEND Family Medicine
DX: I13.2 Hypertensive heart and chronic kidney disease with heart failure and with stage 5 chronic kidney disease, or end stage renal disease (principal); I50.23 Acute on chronic systolic (congestive) heart failure; N17.9 Acute kidney failure, unspecified; N18.5 Chronic kidney disease, stage 5; E87.5 Hyperkalemia; D64.9 Anemia, unspecified; R79.89 Other specified abnormal findings of blood chemistry; E11.22 Type 2 diabetes mellitus with diabetic chronic kidney disease; Z99.2 Dependence on renal dialysis; Z79.4 Long term (current) use of insulin; I25.10 Atherosclerotic heart disease of native coronary artery without angina pectoris; I48.91 Unspecified atrial fibrillation; E11.69 Type 2 diabetes mellitus with other specified complication; D63.8 Anemia in other chronic diseases classified elsewhere
CPT/HCPCS: 36415; 36600; 71045; 76770; 80048; 80053; 81001; 82550; 82553; 82570; 82575; 82805; 82948; 83735; 83880; 84132; 84156; 84484; 85025; 87040; 93005; 93306; 97139; 99284; J1817; J1940; J2060; J2405; J7799